=== PATIENT | female | born 1950 | race Caucasian/White ===

== ENCOUNTER 2016-11-15 17:28 | Inpatient (IN) ==
--- NOTE | 2016-11-15 19:29 | Emergency Department Note ---
Disposition Clinical Impression: Dehydration, Hyponatremia, Chest pain, Gastroparesis Disposition: Admitted As Inpatient Condition: Good Time of Disposition: 22:22 Nausea/Vomiting/Diarrhea HPI - General Chief complaint: ED Nausea/Vomiting/Diarrhea Stated complaint: Gastrointestinal issues Time Seen by Provider: 11/15/16 19:08 Source: patient Limitations: no limitations Nursing Notes Reviewed: Yes Vital Signs Reviewed: Yes - History of Present Illness HPI Narrative: 66-year-old female with history of idiopathic gastroparesis presents with chief complaint of nausea and vomiting 3 days. Patient says she has a gastric stimulator and the battery is and this happened a few weeks ago. Stimulator was put by Dr. Navarro at [facility]. Patient says she has an appointment on November 20 however she has not been able to control her nausea and vomiting with Zofran and Marinol. Because of this she presented to the ER. She denies any fevers or chills. She denies any metastasis. Patient states she has chest pain of 2 days that is tight/squeezing in nature comes and goes and associated with the right arm pain with the pain radiating to the right jaw and associated with diaphoresis. Furthermore she denies any abdominal pain, diarrhea, constipation. She has not eaten anything in 3 days. - Related Data Home Medications Medication Instructions Recorded Confirmed Amitriptyline [Elavil] 10 mg PO DAILY 11/15/16 11/15/16 Amlodipine Besylate 10 mg PO DAILY 11/15/16 11/15/16 Atorvastatin Calcium [Lipitor] 20 mg PO HS 11/15/16 11/15/16 CarBAMazepine [Tegretol Xr] 400 mg PO HS 11/15/16 11/15/16 Chlorthalidone 25 mg PO DAILY 11/15/16 11/15/16 ClonazePAM [Klonopin] 4 mg PO HS 11/15/16 11/15/16 Dronabinol [Marinol] 5 - 10 mg PO BID PRN 11/15/16 11/15/16 Escitalopram [Lexapro] 20 mg PO DAILY 11/15/16 11/15/16 HydrOXYzine Pamoate [Vistaril] 50 mg PO BID PRN 11/15/16 11/15/16 Loratadine [Claritin] 10 mg PO DAILY 11/15/16 11/15/16 Modafinil [Provigil] 200 mg PO BID 11/15/16 11/15/16 Ondansetron [Zofran ODT] 8 mg SL TID PRN 11/15/16 11/15/16 Oxycodone HCl/Acetaminophen 1 each PO BID PRN 11/15/16 11/15/16 [Percocet 5-325 mg Tablet] Pantoprazole Sodium [Protonix] 40 mg PO BID 11/15/16 11/15/16 Quetiapine Fumarate [Seroquel] 200 mg PO HS 11/15/16 11/15/16 Ropinirole [Requip] 2 mg PO HS 11/15/16 11/15/16 Sertraline [Zoloft] 50 mg PO DAILY 11/15/16 11/15/16 Allergies Allergy/AdvReac Type Severity Reaction Status Date / Time prochlorperazine Allergy Anaphylaxis Verified 03/26/15 09:06 acetaminophen [From Vicodin] AdvReac Nausea Verified 03/26/15 08:55 hydrochlorothiazide AdvReac Rash Verified 03/26/15 08:55 hydrocodone [From Vicodin] AdvReac Nausea Verified 03/26/15 08:55 Hydromorphone [From Dilaudid] AdvReac Nausea Verified 03/26/15 08:55 metoclopramide [From Reglan] AdvReac See Verified 03/26/15 09:06 Comments promethazine [From Phenergan] AdvReac See Verified 03/26/15 09:06 Comments Review of Systems: ROS: Constitutional: Denies fevers chills HEENT: Denies blurry vision, reports sore throat and headache Heart: First chest pain and diaphoresis. Denies syncope palpitations Lungs: Denies shortness of breath, cough Abdomen: Denies abdominal pain, reports nausea and vomiting : Denies dysuria, Extremeties: Denies leg cramps, swelling Neuro: Denies numbness and tingling All systems ED: reviewed and negative except as stated. Past Medical History - Past Medical History Medical history: Reports: hyperlipidemia, hypertension, other Surgical history: Reports: breast surgery, cholecystectomy, hysterectomy, other Psychiatric history: Reports: no psych history - Social History Smoking Status: Never smoker Smokeless Tobacco Status: No Alcohol use: Reports: none Drug use: Reports: none Physical Exam General: Alert and oriented to place, time, self HEENT: Head normocephalic, atraumatic, EOMI, PERRLA, neck without lymphadenopathy, absent JVD, moist mucous membranes Heart: Regular rate and rhythm no murmur, Lungs: Clear to auscultation bilaterally Abdomen: Soft old left upper quadrant tenderness with positive bowel sounds, negative Ladd's negative Rovsing's, negative rebound tenderness, negative peritoneal signs. Extremities: Normal capillary refill, absent pedal edema Vascular: Pedal and radial pulses 2/4 Psych: Normal mood and affect - General Limitations: no limitations General appearance: alert Course Course Narrative: Obtain CBC, BMP, troponin, EKG, chest x-ray, urinalysis. On physical exam patient had mild tenderness to palpation left upper quadrant. She denies any radiation of the pain. - Reevaluation(s) Reevaluation #1: CBC within normal limits, chest x-ray troponin and EKG within normal limits. EKG shows sinus bradycardia with no ST-T wave changes. Patient's sodium is 123 which is decreasing her baseline 134. We will start patient on normal saline at 125 an hour. Patient is okay to be admitted to the hospitalist service. Time: 21:07 Reevaluation #2: Dr. Prince except the patient. Time: 21:42 Vital Signs Temperature 98.5 F 11/15/16 17:40 Pulse Rate 69 11/15/16 17:40 Respiratory Rate 14 11/15/16 17:40 Blood Pressure 148/93 11/15/16 17:40 O2 Sat by Pulse Oximetry 94 11/15/16 17:40 Temperature 98.5 F 11/15/16 17:40 Pulse Rate 56 11/15/16 21:30 Respiratory Rate 20 11/15/16 21:59 Blood Pressure 154/82 11/15/16 21:59 O2 Sat by Pulse Oximetry 94 11/15/16 21:30 Oxygen Delivery Oxygen Delivery Room Air Nausea/Vomiting/Diarrhea - [facility] Narrative Medical decision making narrative: patient with history of idiopathic gastroparesis who has gastric stimulator has not been working due to battery. She has been having since her nausea and vomiting for 3 days. Her BMP shows hyponatremia, she also had squeezing chest pain that has been worked up. EKG within normal limits, troponin negative, chest x-ray negative. She will need to be worked up further for her chest pain. Patient is okay to be admitted for further fluid resuscitation and workup for chest pain rule out. - Medical Records Medical records reviewed: Yes I reviewed the patient's medical records. - Lab Data Lab results reviewed: Yes I reviewed the patient's lab results. Result diagrams: 11/15/16 20:17 11/15/16 20:17 Lab Results 11/15/16 11/15/16 11/15/16 Range/Units 20:17 20:17 20:17 WBC 8.2 (4.3-11.1) K/mcL RBC 4.39 (3.82-4.97) M/mcL Hgb 12.9 (11.5-15.4) g/dL Hct 36.6 (35.3-44.9) % MCV 83.4 (83.0-100.0) fL MCH 29.4 (28.0-33.3) pg MCHC 35.2 (31.6-35.5) g/dL RDW 12.2 (11.5-14.5) % Plt Count 246 (140-400) K/mcL MPV 9.3 L (9.4-12.4) fL Immature Gran % 0.5 (0-4) % Seg Neutrophils % 66.1 % Lymphocytes % 22.8 % Monocytes % 8.8 % Eosinophils % 1.6 % Basophils % 0.2 % Neutrophils # 5.4 (1.6-8.9) K/mcL Lymphocytes # 1.9 (0.6-4.6) K/mcL Monocytes # 0.7 (0.0-1.3) K/mcL Eosinophils # 0.1 (0.0-0.6) K/mcL Basophils # 0.0 (0.0-0.2) K/mcL Sodium 123 L (136-145) mEq/L Potassium 3.2 L (3.5-4.5) mEq/L Chloride 85 L (98-109) mEq/L Carbon Dioxide 28 (19-29) mEq/L BUN 10 (7-20) mg/dL Creatinine 0.63 (0.57-1.11) mg/dL Est GFR ( Amer) > 60 (> 60) Est GFR (Non-Af Amer) > 60 (> 60) BUN/Creatinine Ratio 16 (6-26) Glucose 98 (70-99) mg/dL Calculated Osmolality 255 L (280-300) Calcium 9.1 (8.6-10.8) mg/dL Troponin I 0.00 (0-0.03) ng/mL - Radiology Data Radiology results reviewed: Yes I reviewed the patient's radiology results. - EKG Data EKG attestation: Yes I reviewed and interpreted this EKG. EKG results narrative: Sinus rhythm with a rate of [address]-T wave changes. Normal sinus rhythm. Attestation Statement - Attestation Attestation: I examined this patient and my medical decision-making was reviewed with the GENERATOR OPERATOR/PA/Advanced Practice Nurse/Resident Physician. I agree with the documented findings, disposition and treatment plan as described except to the extent set forth below. I had face to face time with the patient. 66-year-old with gastroparesis who has a gastric stimulator which has a battery. She is actually scheduled to have that battery replaced in [place] by her doctor. Vomiting not able keep anything down. Physical examination her abdomen is soft no localizing surgical findings. Laboratory her sodium is somewhat low. IV was established when admit patient IV Zofran and fluids.
[2016-11-15] MEDS ORDERED: Ondansetron 4 MG/2 ML VIAL IV ONE ×2 (19:38→21:30)
[2016-11-15 20:25] LABS: Basophils % 0.2 %; Eosinophils # 0.1 K/mcL (0.0-0.6); Eosinophils % 1.6 %; Hematocrit 36.6 % (35.3-44.9); Hemoglobin 12.9 g/dL (11.5-15.4); Immature Granulocytes % 0.5 % (0-4); Lymphocytes # 1.9 K/mcL (0.6-4.6); Lymphocytes % 22.8 %; Mean Corpuscular HGB Conc 35.2 g/dL (31.6-35.5); Mean Corpuscular Hemoglobin 29.4 pg (28.0-33.3); Mean Corpuscular Volume 83.4 fL (83.0-100.0); Mean Platelet Volume 9.3 fL (9.4-12.4); Monocytes # 0.7 K/mcL (0.0-1.3); Monocytes % 8.8 %; Neutrophils # 5.4 K/mcL (1.6-8.9); Platelet Count 246 K/mcL (140-400); Red Blood Count 4.39 M/mcL (3.82-4.97); Red Cell Distribution Width 12.2 % (11.5-14.5); Segmented Neutrophils % 66.1 %
[2016-11-15 20:37] LABS: BUN/Creatinine Ratio 16 (6-26); Blood Urea Nitrogen 10 mg/dL (7-20); Calcium 9.1 mg/dL (8.6-10.8); Carbon Dioxide 28 mEq/L (19-29); Chloride 85 mEq/L (98-109); Glucose 98 mg/dL (70-99); Osmolality,Calculated 255 (280-300); Potassium 3.2 mEq/L (3.5-4.5); Sodium 123 mEq/L (136-145); eGFR For African Americans > 60 (> 60); eGFR For Non-African Americans > 60 (> 60)
[2016-11-15] MEDS: 0.9 % Sodium Chloride 1,000 ML IVC SCH (21:52)
[2016-11-15] MEDS ORDERED: Naloxone 0.4 MG/ML INJ IVP PRN (23:05)
[2016-11-15] MEDS ORDERED: hydrOXYzine pamoate 25 MG CAPSULE PO PRN (23:55)
--- NOTE | 2016-11-15 23:55 | Internal Med History&Physical ---
Date of Encounter: 11/15/16 Time of Encounter: 23:20 Assessment and Plan (1) Gastroparesis Current visit: Yes Status: Acute she has a history of idiopathic gastroparesis on a stimulator and since her stimulator has been non functioning her symptoms have been uncontrollable requiring her to come in today, we will admit for symptom control (2) Hyponatremia Current visit: Yes Status: Acute from likely related to her dehydration, we will hydrate and follow BMP (3) Hypokalemia Current visit: Yes Status: Acute most likely from GI loss and poor oral intake, we will replace and follow BMP (4) HTN (hypertension) Current visit: Yes Status: Chronic Hx of HTN on amlodipine and chlorthalidone, we will continue these with BP monitoring Qualifiers: Hypertension type: essential hypertension Qualified Code(s): I10 - Essential (primary) hypertension (5) Asthma Current visit: Yes Status: Chronic stable, will do PRN nebs Qualifiers: Asthma severity: mild intermittent Asthma complication type: uncomplicated Qualified Code(s): J45.20 - Mild intermittent asthma, uncomplicated Internal Medicine - H&P: HPI Chief complaint: nausea and vomiting Admitted From: Emergency Dept Plans for Post Hospital Care: Home History of present illness: Ms. Carrasco is a 66 year old female with a history of idiopathic gastroparesis diagnosed in 2004 who has been using a gastric stimulator for the past 5 years comes in with nausea, vomiting. She was reportedly well until about 4 days prior when she began to have the aforementioned symptoms, she vomits several times a day, vomitus is sometimes clear, contains food previously eaten, sometimes green and yellow. No blood has been seen so far. She reports that she has been unable to keep any food down. On the first day of these symptoms she had a bout of loose stools but has had none since. She was informed that the battery of the stimulator was not working and that the next opening she had was in May. She denies abdominal pain, she came in today because her symptoms were unbearable and not responding to the marinol and zofran she had at home. No fever, chills, urinary symptoms or any sign of concurrent infectious process noted. Past Med Surg Social Fam HX - Past Medical History Medical history: asthma, hyperlipidemia, hypertension, other Psychiatric history: no psych history - Past Surgical History Surgical History: breast surgery, cholecystectomy, hysterectomy, knee replacement (left), other (right breast lumpectomy, carpal tunnel release) - Social History Smoking Status: Never smoker Smokeless Tobacco Status: No Alcohol use: none Drug use: none Current living situation: Home - Independent Activity Level: Independent ambulation - Family History Mother Hx Family Cancer: Yes (BREAST CA) Hx Family Endocrine Disorder: Yes (DM) - Additional Family History Additional family history: father is , he had an aneurysm, mother is also and she had DM, COPD, breast cancer, Internal Medicine - H&P: Meds Amitriptyline [Elavil] 10 mg PO DAILY 11/15/16 [History] Amlodipine Besylate 10 mg PO DAILY 11/15/16 [History] Atorvastatin Calcium [Lipitor] 20 mg PO HS 11/15/16 [History] CarBAMazepine [Tegretol Xr] 400 mg PO HS 11/15/16 [History] Chlorthalidone 25 mg PO DAILY 11/15/16 [History] ClonazePAM [Klonopin] 4 mg PO HS 11/15/16 [History] Dronabinol [Marinol] 5 - 10 mg PO BID PRN 11/15/16 [History] Escitalopram [Lexapro] 20 mg PO DAILY 11/15/16 [History] HydrOXYzine Pamoate [Vistaril] 50 mg PO BID PRN 11/15/16 [History] Loratadine [Claritin] 10 mg PO DAILY 11/15/16 [History] Modafinil [Provigil] 200 mg PO BID 11/15/16 [History] Ondansetron [Zofran ODT] 8 mg SL TID PRN 11/15/16 [History] Oxycodone HCl/Acetaminophen [Percocet 5-325 mg Tablet] 1 each PO BID PRN [History] Pantoprazole Sodium [Protonix] 40 mg PO BID 11/15/16 [History] Quetiapine Fumarate [Seroquel] 200 mg PO HS 11/15/16 [History] Ropinirole [Requip] 2 mg PO HS 11/15/16 [History] Sertraline [Zoloft] 50 mg PO DAILY 11/15/16 [History] Allergies prochlorperazine Allergy (Verified 03/26/15 09:06) Anaphylaxis acetaminophen [From Vicodin] Adverse Reaction (Verified 03/26/15 08:55) Nausea hydrochlorothiazide Adverse Reaction (Verified 03/26/15 08:55) Rash hydrocodone [From Vicodin] Adverse Reaction (Verified 03/26/15 08:55) Nausea Hydromorphone [From Dilaudid] Adverse Reaction (Verified 03/26/15 08:55) Nausea metoclopramide [From Reglan] Adverse Reaction (Verified 03/26/15 09:06) See Comments shakey promethazine [From Phenergan] Adverse Reaction (Verified 03/26/15 09:06) See Comments restless legs All Systems PM: A 10-system review of systems was performed and is negative for pertinent findings except as documented above in the HPI. - Constitutional Vitals: Temp Pulse Resp BP Pulse Ox 97.9 F 57 16 145/85 95 11/15/16 22:45 11/15/16 22:45 11/15/16 22:45 11/15/16 22:45 11/15/16 22:45 PHYSICAL EXAMINATION: GENERAL: Adult female, lying in bed wt a bowl by her side, Alert, not in acute distress, HEENT: NC/AT, EOMI, PERRLA, anicteric sclera, normal conjunctiva, supple, clear nares, moist mucous membranes, clear oropharynx, central uvula RESP: no chest wall tenderness with palpation, lungs are clear to auscultation bilaterally, good AE bilaterally, No crackles or wheeze CARDIO: Normal hearts sounds; S1 and 2, RRR with no murmurs, no JVD, no ankle edema GI: Soft, full, no tenderness, no organomegaly felt, normal bowel sounds heard MUSCULOSKELETAL: grossly normal movements bilaterally, no deformities noted, no calf tenderness EXTREMITIES: No clubbing, cyanosis or edema, NEUROLOGIC: CN 2-12 intact grossly. No motor/sensory deficit appreciated, PSYCHIATRY: AAO x 3. Mood is fair, exhibits appropriate judgement SKIN: no skin rash or ulcers noted Internal Med - H&P Results - Labs CBC & Chem 7: 11/15/16 20:17 11/16/16 04:06 - EKG Data -: EKG Interpreted by Myself EKG shows normal: sinus rhythm Rate: normal - EKG Data Prior EKG available for review: yes When compared to previous EKG: there is no significant change - Diagnostic Studies Chest x-ray Status: image reviewed by me
[2016-11-16] MEDS ORDERED: Potassium Chloride 40 MEQ, Lidocaine 1% 2 ML in D5% in Water 500 ML IVPB ONE (00:01)
[2016-11-16] MEDS: clonazePAM 1 MG TABLET PO SCH ×2 (01:37→20:24)
[2016-11-16] MEDS: rOPINIRole 1 MG TABLET PO SCH ×2 (01:38→20:24)
[2016-11-16] MEDS: Ondansetron 4 MG/2 ML VIAL IVP PRN ×4 (01:45→20:24)
[2016-11-16 05:03] LABS: BUN/Creatinine Ratio 12 (6-26); Blood Urea Nitrogen 7 mg/dL (7-20); Calcium 8.4 mg/dL (8.6-10.8); Carbon Dioxide 27 mEq/L (19-29); Chloride 86 mEq/L (98-109); Glucose 107 mg/dL (70-99); Magnesium 1.6 mg/dL (1.6-2.6); Osmolality,Calculated 254 (280-300); Phosphorous 2.4 mg/dL (2.3-4.7); Potassium 3.4 mEq/L (3.5-4.5); Sodium 123 mEq/L (136-145); eGFR For African Americans > 60 (> 60); eGFR For Non-African Americans > 60 (> 60)
[2016-11-16] MEDS ORDERED: Albuterol 2.5 MG/3 ML NEBULIZER IH PRN (05:51)
[2016-11-16] MEDS: *HR* Heparin 5,000 UNIT/ML VIAL SQ SCH ×3 (07:57→20:24)
[2016-11-16] MEDS: *HR* OxyCODONE/APAP 5/325 TABLET PO PRN ×2 (07:57→20:38)
[2016-11-16] MEDS: amLODIPine 5 MG TABLET PO SCH (07:58)
[2016-11-16] MEDS: Loratadine 10 MG TABLET PO SCH (07:58)
--- NOTE | 2016-11-16 09:52 | Event Note ---
Date of Encounter: 11/16/16 Time of Encounter: 09:40 Seen and evaluated at bedside 66 Y/O F with HTN, Asthma, HLD, Idiopathic gastroparesis She is admitted to observation for symptom control of her gastroparesis She has a stimulator which may be malfunctioning as patient has been having recurrent nausea and vomiting not responding to her po zofran at home She denies any new complains She has had one episode of nausea/vomiting since admission which responded to Zofran. Physical Exam Gen: No apparent distress Neuro: AAOX3, speaks full sentences, moves all limbs spontaneously, no focal deficits HEENT: No sclera icterus, mucus membrane is moist Chest: CTAB Heart: Normal hearts sounds; S1 and 2, RRR with no murmurs, no JVD, no ankle edema GI: Soft, full, no tenderness, no organomegaly felt, normal bowel sounds heard Ext: No clubbing, cyanosis or edema, Integument: No rash Labs and Imaging reviewed CBC WNL Chem: Hypo-osmolar hyponatremia, Na 123 (unchanged since admission), K 3.4 ( repleted, 3.2 on admission), Cr WNL. Trop negative X2 CXR: Clear, no acute processes A/P Nausea and vomiting secondary to gastroparesis with multiple electrolyte abnormalities, continue IVF hydration, repeat Chem at p.m, and tmrw a.m. Check TSH and Lipid panel for hyponatremia Continue home meds Consider GI consult if persistence of symptoms DUonebs prn, no evidence of asthma exacerbation Plan of care discussed with the patient, verbalized understanding
[2016-11-16] MEDS: 0.9 % Sodium Chloride 1,000 ML IVC SCH ×3 (11:03→20:27)
[2016-11-16 13:18] LABS: BUN/Creatinine Ratio 12 (6-26); Blood Urea Nitrogen 7 mg/dL (7-20); Calcium 8.8 mg/dL (8.6-10.8); Carbon Dioxide 29 mEq/L (19-29); Chloride 88 mEq/L (98-109); Chol/HDL Ratio 4.3 (0-4.9); Cholesterol 304 mg/dL (< 200); Glucose 90 mg/dL (70-99); HDL Cholesterol 70 mg/dL (40-59); LDL Cholesterol,Calculated 206 mg/dL (0-99); Osmolality,Calculated 260 (280-300); Potassium 3.2 mEq/L (3.5-4.5); Sodium 126 mEq/L (136-145); Triglycerides 142 mg/dL (< 150); eGFR For African Americans > 60 (> 60); eGFR For Non-African Americans > 60 (> 60)
[2016-11-16 13:38] LABS: Thyroid Stimulating Hormone 1.841 mcIU/mL (0.350-4.840)
[2016-11-16] MEDS: Acetaminophen 325 MG TABLET PO PRN (16:01)
--- NOTE | 2016-11-16 19:30 | Electrocardiograph Report ---
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
[2016-11-16] MEDS: CarBAMazepine XR (12 hr) 100 MG TAB PO SCH (20:24)
[2016-11-17] MEDS: 0.9 % Sodium Chloride 1,000 ML IVC SCH ×3 (04:37→19:54)
[2016-11-17] MEDS: Acetaminophen 325 MG TABLET PO PRN ×2 (04:37→11:49)
[2016-11-17] MEDS: *HR* Heparin 5,000 UNIT/ML VIAL SQ SCH ×3 (04:38→21:12)
[2016-11-17 05:27] LABS: BUN/Creatinine Ratio 8 (6-26); Blood Urea Nitrogen 5 mg/dL (7-20); Calcium 8.1 mg/dL (8.6-10.8); Carbon Dioxide 29 mEq/L (19-29); Chloride 94 mEq/L (98-109); Glucose 103 mg/dL (70-99); Osmolality,Calculated 270 (280-300); Sodium 131 mEq/L (136-145); eGFR For African Americans > 60 (> 60); eGFR For Non-African Americans > 60 (> 60)
[2016-11-17] MEDS: Ondansetron 4 MG/2 ML VIAL IVP PRN ×2 (06:42→16:47)
[2016-11-17] MEDS: amLODIPine 5 MG TABLET PO SCH (08:01)
[2016-11-17] MEDS: Loratadine 10 MG TABLET PO SCH (08:02)
--- NOTE | 2016-11-17 19:23 | Internal Med Progress Note ---
Date of Encounter: 11/17/16 Time of Encounter: 10:00 - Assessment and plan (1) Dehydration Current Visit: Yes Status: Acute Assessment and plan: Continue IV fluid. Follow-up BMP. (2) Chest pain Current Visit: Yes Status: Acute Assessment and plan: Agent to comply mild chest pain on left-sided chest wall. With tenderness on palpation. Consider skelenomuscular pain Qualifiers: Chest pain type: unspecified Qualified Code(s): R07.9 - Chest pain, unspecified (3) Gastroparesis Current Visit: Yes Status: Acute Assessment and plan: Will continue dietary modification, patient is on gastric stimulator. Advance diet gradually. (4) HTN (hypertension) Current Visit: Yes Status: Chronic Assessment and plan: Continue home medication Qualifiers: Hypertension type: essential hypertension Qualified Code(s): I10 - Essential (primary) hypertension (5) Asthma Current Visit: Yes Status: Chronic Qualifiers: Asthma severity: mild intermittent Asthma complication type: uncomplicated Qualified Code(s): J45.20 - Mild intermittent asthma, uncomplicated (6) Hypokalemia Current Visit: Yes Status: Acute Assessment and plan: Give potassium supplement (7) DVT prophylaxis Current Visit: Yes Status: Acute Assessment and plan: Heparin subcutaneously - Time Spent With Patient 25 - 35 minutes - Subjective Interval history: Patient is a 66-year-old female admitted for nausea and vomiting. Her past medical history is significant for gastroparesis on gastric stimulator. Hyperlipidemia and hypertension. I saw and examined the patient. She is awake alert, oriented 3. Still nauseous but no vomiting. Will advance diet to soft diet. Continue monitoring patient. Patient had bowel movement and can pass gas. - Constitutional Vitals: Temp Pulse Resp BP Pulse Ox 97.8 F 66 18 153/89 95 11/17/16 18:47 11/17/16 18:47 11/17/16 18:47 11/17/16 18:47 11/17/16 18:47 General appearance: Present: A&O X 3, no acute distress, answers questions appropriately - Head Head exam: Present: atraumatic, normocephalic - Eye Eye exam: Present: PERRL, conjuntiva pink, sclera anicteric Pupils: Present: PERRL - Neck Neck exam general surgery: Present: supple, trachea midline. Absent: lymphadenopathy - Respiratory Respiratory exam: Present: CTAB. Absent: accessory muscle use, rales, rhonchi, wheezes - Cardiovascular Cardiovascular exam: Present: RRR, +S1, +S2. Absent: diastolic murmur, gallop, rubs, systolic murmur - GI/Abdominal GI/Abdominal exam: Present: normal bowel sounds, soft, no peritoneal signs. Absent: distended, tenderness - Extremities Exam Extremities exam: Present: warm, radial pulses palpable and symetrical. Absent : calf tenderness, cyanotic, pedal edema - Neurological Exam Neurological exam: Present: CN II-XII intact, oriented X3, no focal deficits. Absent: pronater drift, facial droop, speech deficit - Skin Skin exam: Present: dry, intact Internal Medicine: Result - Labs CBC & Chem 7: 11/15/16 20:17 11/17/16 04:16 Labs: BMP 11/17/16 04:16 Sodium 131 L Potassium 3.0 L Chloride 94 L Carbon Dioxide 29 BUN 5 L Creatinine 0.63 Glucose 103 H Calcium 8.1 L Consult Discharge Plan - Plan Referrals: Wilton Marcum MD [Primary Care Provider] -
[2016-11-17] MEDS: rOPINIRole 1 MG TABLET PO SCH (21:09)
[2016-11-17] MEDS: *HR* OxyCODONE/APAP 5/325 TABLET PO PRN (21:09)
[2016-11-17] MEDS: clonazePAM 1 MG TABLET PO SCH (21:10)
[2016-11-17] MEDS: CarBAMazepine XR (12 hr) 100 MG TAB PO SCH (21:11)
[2016-11-18 04:25] LABS: Basophils % 0.8 %; Eosinophils # 0.2 K/mcL (0.0-0.6); Hematocrit 33.9 % (35.3-44.9); Hemoglobin 11.6 g/dL (11.5-15.4); Immature Granulocytes % 0.6 % (0-4); Lymphocytes % 37.5 %; Mean Corpuscular HGB Conc 34.2 g/dL (31.6-35.5); Mean Corpuscular Hemoglobin 29.6 pg (28.0-33.3); Mean Corpuscular Volume 86.5 fL (83.0-100.0); Mean Platelet Volume 9.9 fL (9.4-12.4); Monocytes # 0.6 K/mcL (0.0-1.3); Monocytes % 10.5 %; Neutrophils # 2.5 K/mcL (1.6-8.9); Platelet Count 231 K/mcL (140-400); Red Blood Count 3.92 M/mcL (3.82-4.97); Red Cell Distribution Width 12.8 % (11.5-14.5); Segmented Neutrophils % 47.6 %
[2016-11-18 04:42] LABS: BUN/Creatinine Ratio 10 (6-26); Blood Urea Nitrogen 7 mg/dL (7-20); Calcium 8.7 mg/dL (8.6-10.8); Carbon Dioxide 29 mEq/L (19-29); Chloride 102 mEq/L (98-109); Glucose 111 mg/dL (70-99); Magnesium 1.9 mg/dL (1.6-2.6); Osmolality,Calculated 281 (280-300); Potassium 3.8 mEq/L (3.5-4.5); Sodium 136 mEq/L (136-145); eGFR For African Americans > 60 (> 60); eGFR For Non-African Americans > 60 (> 60)
[2016-11-18] MEDS: *HR* Heparin 5,000 UNIT/ML VIAL SQ SCH ×3 (06:05→23:11)
[2016-11-18] MEDS: 0.9 % Sodium Chloride 1,000 ML IVC SCH ×2 (06:06→18:58)
[2016-11-18] MEDS: Ondansetron 4 MG/2 ML VIAL IVP PRN ×2 (06:07→14:13)
[2016-11-18] MEDS: Acetaminophen 325 MG TABLET PO PRN (06:16)
[2016-11-18] MEDS: amLODIPine 5 MG TABLET PO SCH (08:32)
[2016-11-18] MEDS: Loratadine 10 MG TABLET PO SCH (08:36)
[2016-11-18] MEDS: *HR* OxyCODONE/APAP 5/325 TABLET PO PRN ×2 (14:14→20:23)
--- NOTE | 2016-11-18 15:06 | Internal Med Progress Note ---
Date of Encounter: 11/18/16 Time of Encounter: 10:00 - Assessment and plan (1) Dehydration Current Visit: Yes Status: Acute Assessment and plan: Continue IV fluid. Follow-up BMP. (2) Chest pain Current Visit: Yes Status: Acute Assessment and plan: Pt c/o mild chest pain on left-sided chest wall. With tenderness on palpation. Consider skelenomuscular pain. CTA shows no PE. EKG unremarkable. Will check 3 sets of troponin. Qualifiers: Chest pain type: unspecified Qualified Code(s): R07.9 - Chest pain, unspecified (3) Gastroparesis Current Visit: Yes Status: Acute Assessment and plan: Will continue dietary modification, patient is on gastric stimulator. Advance diet gradually. (4) HTN (hypertension) Current Visit: Yes Status: Chronic Assessment and plan: Continue home medication Qualifiers: Hypertension type: essential hypertension Qualified Code(s): I10 - Essential (primary) hypertension (5) Asthma Current Visit: Yes Status: Chronic Assessment and plan: Stable, continue home medications Qualifiers: Asthma severity: mild intermittent Asthma complication type: uncomplicated Qualified Code(s): J45.20 - Mild intermittent asthma, uncomplicated (6) Hypokalemia Current Visit: Yes Status: Acute Assessment and plan: Improved after potassium supplement (7) DVT prophylaxis Current Visit: Yes Status: Acute Assessment and plan: Heparin subcutaneously - Subjective Interval history: Patient is a 66-year-old female admitted for nausea and vomiting. Her past medical history is significant for gastroparesis on gastric stimulator. Hyperlipidemia and hypertension. I saw and examined the patient. She is awake alert, oriented 3. Still nauseous but no vomiting, eat much of the lunch today. Patient complaint chest pain, pain started from yesterday, constant, on the left chest, worsening on deep breath. Yesterday we did a EKG, which is unremarkable. Since the pain is persistent, further workup has been done. D-dimer positive, CTA was placed. CT result shows no PE. Will track 3 sets of troponin. But most likely the pain is muscular in origin. Will give patient pain medication for symptom control. - Constitutional Vitals: Temp Pulse Resp BP Pulse Ox 97.5 F L 62 20 152/87 96 11/18/16 11:35 11/18/16 11:35 11/18/16 11:35 11/18/16 11:35 11/18/16 11:35 General appearance: Present: A&O X 3, no acute distress, answers questions appropriately - Head Head exam: Present: atraumatic, normocephalic - Eye Eye exam: Present: PERRL, conjuntiva pink, sclera anicteric Pupils: Present: PERRL - Neck Neck exam general surgery: Present: supple, trachea midline. Absent: lymphadenopathy - Respiratory Respiratory exam: Present: chest wall tenderness, CTAB. Absent: accessory muscle use, rales, rhonchi, wheezes - Cardiovascular Cardiovascular exam: Present: RRR, +S1, +S2. Absent: diastolic murmur, gallop, rubs, systolic murmur - GI/Abdominal GI/Abdominal exam: Present: normal bowel sounds, soft, no peritoneal signs. Absent: distended, tenderness - Extremities Exam Extremities exam: Present: warm, radial pulses palpable and symetrical. Absent : calf tenderness, cyanotic, pedal edema - Neurological Exam Neurological exam: Present: CN II-XII intact, oriented X3, no focal deficits. Absent: pronater drift, facial droop, speech deficit - Skin Skin exam: Present: dry, intact Internal Medicine: Result - Labs CBC & Chem 7: 11/18/16 04:01 11/18/16 04:01 Labs: Short CBC 11/18/16 Range/Units 04:01 WBC 5.3 (4.3-11.1) K/mcL Hgb 11.6 (11.5-15.4) g/dL Hct 33.9 L (35.3-44.9) % Plt Count 231 (140-400) K/mcL Neutrophils # 2.5 (1.6-8.9) K/mcL BMP 11/18/16 04:01 Sodium 136 Potassium 3.8 Chloride 102 Carbon Dioxide 29 BUN 7 Creatinine 0.70 Glucose 111 H Calcium 8.7 Cardiac Enzymes 11/18/16 Range/Units 09:01 Troponin I 0.00 (0-0.03) ng/mL - ABG Interpretation ABG results: PT/INR, D-dimer D-Dimer 548 ng/mLFEU (0-500) H 11/18/16 09:01 - Impressions Impressions Chest X-Ray 11/18/16 08:49 IMPRESSION: No acute process. D/ / Javier Cantor MD / Javier Cantor MD Interpreting Provider: Javier Cantor MD Chest CTA 11/18/16 10:27 IMPRESSION: 1. No acute pulmonary artery embolism. 2. Cardiomegaly with minimal effusions and basilar atelectasis. D/ / 11/18/2016 11:37:16 Rob Holcomb MD / moose Interpreting Provider: Rob Holcomb MD Consult Discharge Plan - Plan Referrals: Wilton Marcum MD [Primary Care Provider] -
[2016-11-18] MEDS: clonazePAM 1 MG TABLET PO SCH (20:22)
[2016-11-18] MEDS: rOPINIRole 1 MG TABLET PO SCH (20:23)
[2016-11-18] MEDS: CarBAMazepine XR (12 hr) 100 MG TAB PO SCH (20:28)
[2016-11-19] MEDS: Pantoprazole 40 MG VIAL IVP SCH ×2 (00:10→05:32)
[2016-11-19] MEDS: *HR* OxyCODONE/APAP 5/325 TABLET PO PRN ×4 (03:00→21:26)
[2016-11-19 03:24] LABS: Basophils % 0.7 %; Eosinophils # 0.2 K/mcL (0.0-0.6); Eosinophils % 2.8 %; Hematocrit 34.1 % (35.3-44.9); Hemoglobin 11.6 g/dL (11.5-15.4); Immature Granulocytes % 0.8 % (0-4); Lymphocytes # 2.7 K/mcL (0.6-4.6); Lymphocytes % 45.2 %; Mean Corpuscular Hemoglobin 29.7 pg (28.0-33.3); Mean Corpuscular Volume 87.4 fL (83.0-100.0); Mean Platelet Volume 9.6 fL (9.4-12.4); Monocytes # 0.5 K/mcL (0.0-1.3); Monocytes % 8.8 %; Neutrophils # 2.5 K/mcL (1.6-8.9); Platelet Count 235 K/mcL (140-400); Red Cell Distribution Width 13.1 % (11.5-14.5); Segmented Neutrophils % 41.7 %
[2016-11-19 03:34] LABS: BUN/Creatinine Ratio 12 (6-26); Blood Urea Nitrogen 8 mg/dL (7-20); Calcium 8.8 mg/dL (8.6-10.8); Carbon Dioxide 25 mEq/L (19-29); Chloride 101 mEq/L (98-109); Glucose 89 mg/dL (70-99); Osmolality,Calculated 276 (280-300); Potassium 4.1 mEq/L (3.5-4.5); Sodium 134 mEq/L (136-145); eGFR For African Americans > 60 (> 60); eGFR For Non-African Americans > 60 (> 60)
[2016-11-19] MEDS: *HR* Heparin 5,000 UNIT/ML VIAL SQ SCH ×3 (05:31→21:27)
[2016-11-19] MEDS: Ondansetron 4 MG/2 ML VIAL IVP PRN ×3 (05:49→21:56)
[2016-11-19] MEDS: 0.9 % Sodium Chloride 1,000 ML IVC SCH (06:06)
[2016-11-19] MEDS: Loratadine 10 MG TABLET PO SCH (07:44)
[2016-11-19] MEDS: amLODIPine 5 MG TABLET PO SCH (07:45)
[2016-11-19] MEDS: Pantoprazole 40 MG in 0.9 % Sodium Chloride Mini Bag 100 ML IVC SCH ×3 (09:58→21:30)
--- NOTE | 2016-11-19 16:58 | Internal Med Progress Note ---
Date of Encounter: 11/19/16 Time of Encounter: 10:00 - Assessment and plan (1) Dehydration Current Visit: Yes Status: Acute Assessment and plan: Resolved. Patient eats well now. Discontinue IV fluid. (2) Chest pain Current Visit: Yes Status: Acute Assessment and plan: Most likely GERD as pt's pain improved after IV protonix. Will continue Protonix drip, elevate head of the bed, and educated the patient keep upright after eating. Qualifiers: Chest pain type: unspecified Qualified Code(s): R07.9 - Chest pain, unspecified (3) Gastroparesis Current Visit: Yes Status: Acute Assessment and plan: Will continue dietary modification, patient is on gastric stimulator. Advance diet gradually. (4) HTN (hypertension) Current Visit: Yes Status: Chronic Assessment and plan: Continue home medication Qualifiers: Hypertension type: essential hypertension Qualified Code(s): I10 - Essential (primary) hypertension (5) Asthma Current Visit: Yes Status: Chronic Assessment and plan: Stable, continue home medications Qualifiers: Asthma severity: mild intermittent Asthma complication type: uncomplicated Qualified Code(s): J45.20 - Mild intermittent asthma, uncomplicated (6) Hypokalemia Current Visit: Yes Status: Acute Assessment and plan: Improved after potassium supplement (7) DVT prophylaxis Current Visit: Yes Status: Acute Assessment and plan: Heparin subcutaneously - Subjective Interval history: Patient is a 66-year-old female admitted for nausea and vomiting. Her past medical history is significant for gastroparesis on gastric stimulator. Hyperlipidemia and hypertension. I saw and examined the patient. She is awake alert, oriented 3. Still complaint of chest pain, patient mentioned she has severe GERD and had similar chest pain before, respond to Protonix drip. Will try protonix drip treatment. Pt's vitals are stable. - Constitutional Vitals: Temp Pulse Resp BP Pulse Ox 98.2 F 67 16 131/84 95 11/19/16 15:23 11/19/16 15:23 11/19/16 15:23 11/19/16 15:23 11/19/16 15:23 General appearance: Present: A&O X 3, no acute distress, answers questions appropriately - Head Head exam: Present: atraumatic, normocephalic - Eye Eye exam: Present: PERRL, conjuntiva pink, sclera anicteric Pupils: Present: PERRL - Neck Neck exam general surgery: Present: supple, trachea midline. Absent: lymphadenopathy - Respiratory Respiratory exam: Present: CTAB. Absent: accessory muscle use, rales, rhonchi, wheezes - Cardiovascular Cardiovascular exam: Present: RRR, +S1, +S2. Absent: diastolic murmur, gallop, rubs, systolic murmur - GI/Abdominal GI/Abdominal exam: Present: normal bowel sounds, soft, no peritoneal signs. Absent: distended, tenderness - Extremities Exam Extremities exam: Present: warm, radial pulses palpable and symetrical. Absent : calf tenderness, cyanotic, pedal edema - Neurological Exam Neurological exam: Present: CN II-XII intact, oriented X3, no focal deficits. Absent: pronater drift, facial droop, speech deficit - Skin Skin exam: Present: dry, intact Internal Medicine: Result - Labs CBC & Chem 7: 11/19/16 03:13 11/19/16 03:13 Labs: Short CBC 11/19/16 Range/Units 03:13 WBC 6.0 (4.3-11.1) K/mcL Hgb 11.6 (11.5-15.4) g/dL Hct 34.1 L (35.3-44.9) % Plt Count 235 (140-400) K/mcL Neutrophils # 2.5 (1.6-8.9) K/mcL BMP 11/19/16 03:13 Sodium 134 L Potassium 4.1 Chloride 101 Carbon Dioxide 25 BUN 8 Creatinine 0.65 Glucose 89 Calcium 8.8 Cardiac Enzymes 11/18/16 Range/Units 20:16 Troponin I 0.00 (0-0.03) ng/mL - ABG Interpretation ABG results: PT/INR, D-dimer D-Dimer 548 ng/mLFEU (0-500) H 11/18/16 09:01 Consult Discharge Plan - Plan Referrals: Wilton Marcum MD [Primary Care Provider] -
[2016-11-19] MEDS: CarBAMazepine XR (12 hr) 100 MG TAB PO SCH (21:26)
[2016-11-19] MEDS: clonazePAM 1 MG TABLET PO SCH (21:26)
[2016-11-19] MEDS: rOPINIRole 1 MG TABLET PO SCH (21:27)
[2016-11-19] MEDS ORDERED: Pantoprazole 40 MG VIAL IVP SCH (22:29)
[2016-11-20] MEDS: Pantoprazole 40 MG in 0.9 % Sodium Chloride Mini Bag 100 ML IVC SCH ×3 (02:53→13:35)
[2016-11-20] MEDS: *HR* Heparin 5,000 UNIT/ML VIAL SQ SCH ×2 (06:33→14:28)
[2016-11-20] MEDS: *HR* OxyCODONE/APAP 5/325 TABLET PO PRN ×2 (06:58→13:35)
[2016-11-20] MEDS: Ondansetron 4 MG/2 ML VIAL IVP PRN ×2 (06:58→13:35)
[2016-11-20] MEDS: amLODIPine 5 MG TABLET PO SCH (08:16)
[2016-11-20] MEDS: Loratadine 10 MG TABLET PO SCH (08:16)
--- NOTE | 2016-11-20 09:02 | Electrocardiograph Report ---
[address] [address] Test Date: 2016-11-17 Pat Name: Avelina Carrasco Department: 113 Room: 3B36 Gender: F Call [facility] Contact [facility] Manager: : [id number] Requested By: Hermelinda Zamarripa Order Number: [id number] Reading MD: Ajay Seo MD Measurements Intervals [place] Rate: 66 P: 45 MS: 175 QRS: -6 QRSD: 89 T: -10 QT: 348 QTc: 361 Interpretive Statements SINUS RHYTHM BASELINE ARTIFACT Electronically Signed On 11-20-2016 9:00:44 EDT by Ajay Seo MD
[2016-11-20 14:56] VITALS: BP 133/83
--- NOTE | 2016-11-20 15:44 | Discharge Summary ---
Date of Encounter: 11/20/16 Time of Encounter: 15:00 - Discharge Diagnosis (1) Dehydration Priority: Primary Status: Acute (2) Chest pain Priority: Primary Status: Acute Qualifiers: Chest pain type: unspecified Qualified Code(s): R07.9 - Chest pain, unspecified (3) Gastroparesis Priority: Primary Status: Acute (4) HTN (hypertension) Priority: Secondary Status: Chronic Qualifiers: Hypertension type: essential hypertension Qualified Code(s): I10 - Essential (primary) hypertension (5) Asthma Priority: Secondary Status: Chronic Qualifiers: Asthma severity: mild intermittent Asthma complication type: uncomplicated Qualified Code(s): J45.20 - Mild intermittent asthma, uncomplicated (6) Hypokalemia Priority: Secondary Status: Acute (7) DVT prophylaxis Priority: Secondary Status: Acute - Discharge Medications Home Medications: Amitriptyline [Elavil] 10 mg PO DAILY 11/15/16 [History] Amlodipine Besylate 10 mg PO DAILY 11/15/16 [History] Atorvastatin Calcium [Lipitor] 20 mg PO HS 11/15/16 [History] CarBAMazepine [Tegretol Xr] 400 mg PO HS 11/15/16 [History] Chlorthalidone 25 mg PO DAILY 11/15/16 [History] ClonazePAM [Klonopin] 4 mg PO HS 11/15/16 [History] Dronabinol [Marinol] 5 - 10 mg PO BID PRN 11/15/16 [History] Escitalopram [Lexapro] 20 mg PO DAILY 11/15/16 [History] HydrOXYzine Pamoate [Vistaril] 50 mg PO BID PRN 11/15/16 [History] Loratadine [Claritin] 10 mg PO DAILY 11/15/16 [History] Modafinil [Provigil] 200 mg PO BID 11/15/16 [History] Ondansetron [Zofran ODT] 8 mg SL TID PRN 11/15/16 [History] Oxycodone HCl/Acetaminophen [Percocet 5-325 mg Tablet] 1 each PO BID PRN [History] Pantoprazole Sodium [Protonix] 40 mg PO BID 11/15/16 [History] Quetiapine Fumarate [Seroquel] 200 mg PO HS 11/15/16 [History] Ropinirole [Requip] 2 mg PO HS 11/15/16 [History] Sertraline [Zoloft] 50 mg PO DAILY 11/15/16 [History] Allergies/Adverse Reactions: Allergies prochlorperazine Allergy (Verified 03/26/15 09:06) Anaphylaxis acetaminophen [From Vicodin] Adverse Reaction (Verified 03/26/15 08:55) Nausea hydrochlorothiazide Adverse Reaction (Verified 03/26/15 08:55) Rash hydrocodone [From Vicodin] Adverse Reaction (Verified 03/26/15 08:55) Nausea Hydromorphone [From Dilaudid] Adverse Reaction (Verified 03/26/15 08:55) Nausea metoclopramide [From Reglan] Adverse Reaction (Verified 03/26/15 09:06) See Comments shakey promethazine [From Phenergan] Adverse Reaction (Verified 03/26/15 09:06) See Comments restless legs Procedures/tests Complete & Pending: Procedures Performed prior 72 hours Category Date Time Status CT angio chest [CT] Stat Cat Scan 11/18/16 10:27 Completed Date of admission: 11/16/16 13:52 Primary care physician: Wilton Marcum MD Discharging clinician: Hermelinda Zamarripa Anticipated date of discharge: 11/20/16 - Patient Status Disposition: Home, Self-Care Condition: Good Functional capacity at discharge: independent ambulation Overall status at discharge: patient is back to baseline - Discharge Instructions Follow Up With: Wilton Marcum MD [Primary Care Provider] - - Diet and Activity Activity: increase activity as tolerated Diet: advance to your usual diet Interval History: Ms. Carrasco is a 66 year old female with a history of idiopathic gastroparesis diagnosed in 2004 who has been using a gastric stimulator for the past 5 years comes in with nausea, vomiting. She was reportedly well until about 4 days prior when she began to have the aforementioned symptoms, she vomits several times a day, vomitus is sometimes clear, contains food previously eaten, sometimes green and yellow. No blood has been seen so far. She reports that she has been unable to keep any food down. On the first day of these symptoms she had a bout of loose stools but has had none since. She was informed that the battery of the stimulator was not working and that the next opening she had was in May. She denies abdominal pain, she came in today because her symptoms were unbearable and not responding to the marinol and zofran she had at home. No fever, chills, urinary symptoms or any sign of concurrent infectious process noted. Hospital course: Ms. Carrasco is a 66 year old female admitted for nausea and vomiting. Patient has history of gastroparesis on stimulator. She was treated with nothing by mouth, IV fluid. Her diet has been advanced to gradually and she tolerated well. His hospitalization is complicated by chest pain, serial chest pain workup has been done. Finally, her chest pain was considered due to severe GERD. She was placed on protonix drip and her chest pain has resolved after treatment. Saw and examined the patient today. She is awake alert oriented 3. No more nausea or vomiting. No chest pain. Vitals are stable. Patient was educated to eat less but more frequently, keep upright after eating for at least 2 hours , elevate head of bed during the night. She will take pantoprazole 40 mg twice a day as she was discharged. She will follow-up with her GI doctor as outpatient. - Time Spent with Patient Total time spent providing and/or coordinating discharge services: 40 minutes Greater than 30 minutes - Constitutional Vitals: Temp Pulse Resp BP Pulse Ox 98.1 F 66 17 133/83 94 11/20/16 14:54 11/20/16 14:54 11/20/16 14:54 11/20/16 14:54 11/20/16 14:54 General appearance: Present: A&O X 3, no acute distress, answers questions appropriately - Head Head exam: Present: atraumatic, normocephalic - Eye Eye exam: Present: PERRL, conjuntiva pink, sclera anicteric Pupils: Present: PERRL - Neck Neck exam general surgery: Present: supple, trachea midline. Absent: lymphadenopathy - Respiratory Respiratory exam: Present: CTAB. Absent: accessory muscle use, rales, rhonchi, wheezes - Cardiovascular Cardiovascular exam: Present: RRR, +S1, +S2. Absent: diastolic murmur, gallop, rubs, systolic murmur - GI/Abdominal GI/Abdominal exam: Present: normal bowel sounds, soft, no peritoneal signs. Absent: distended, tenderness - Extremities Exam Extremities exam: Present: warm, radial pulses palpable and symetrical. Absent : calf tenderness, cyanotic, pedal edema - Neurological Exam Neurological exam: Present: CN II-XII intact, oriented X3, no focal deficits. Absent: pronater drift, facial droop, speech deficit - Skin Skin exam: Present: dry, intact
== END 2016-11-20 16:42 | disposition home or self-care (01) | DRG 920 ==
LOC: EMEROO 17:28 → 3BNU 17:28 → SUATTDRO 21:28 → 3BNU 22:17 → SUATTDRO 11-16 13:52
PROVIDERS: ADMIT Registered Nurse; ATTEND Internal Medicine

== ENCOUNTER 2016-11-23 16:20 | Observation (INO) ==
[2016-11-23] MEDS ORDERED: 0.9 % Sodium Chloride 1,000 ML IVC ONE ×2 (17:02→18:12)
--- NOTE | 2016-11-23 17:04 | Emergency Department Note ---
Disposition Clinical Impression: Hyponatremia, Myalgia, Gastroparesis Disposition: Admitted As Inpatient Condition: Good Time of Disposition: 18:25 General Adult HPI - General Chief complaint: ED Abdominal Pain Stated complaint: General Time Seen by Provider: 11/23/16 16:29 Source: patient Limitations: no limitations - History of Present Illness HPI Narrative: Patient presents to the ED if the chief complaint of diffuse muscle spasms, myalgias, nausea and vomiting. Patient was just admitted last week for hypokalemia, hyponatremia and dehydration. She has a history of gastroparesis and has a gastric stimulator. Her battery last week. She saw her surgeon upon discharge on Sunday and states that she will likely need a complete gastric resection now. She presents today with an acute exacerbation of her previous symptoms. She states that her cramps are all over her body at different points and are worse than they were before. She has been unable to eat or drink anything for the past several days. Nonbloody, nonbilious vomiting. No abdominal pain is different than her baseline. She said chest pain or tightness in the past, but none today. No fevers. States she feels very weak and tired and feels almost worse than when she was admitted last time. Pain Scale: 10 - Related Data Home Medications Medication Instructions Recorded Confirmed Amitriptyline [Elavil] 10 mg PO DAILY 11/15/16 11/23/16 Amlodipine Besylate 10 mg PO DAILY 11/15/16 11/23/16 Atorvastatin Calcium [Lipitor] 20 mg PO HS 11/15/16 11/23/16 CarBAMazepine [Tegretol Xr] 400 mg PO HS 11/15/16 11/23/16 Chlorthalidone 25 mg PO DAILY 11/15/16 11/23/16 ClonazePAM [Klonopin] 4 mg PO HS 11/15/16 11/23/16 Dronabinol [Marinol] 5 - 10 mg PO BID PRN 11/15/16 11/23/16 Escitalopram [Lexapro] 20 mg PO DAILY 11/15/16 11/23/16 HydrOXYzine Pamoate [Vistaril] 50 mg PO BID PRN 11/15/16 11/23/16 Loratadine [Claritin] 10 mg PO DAILY 11/15/16 11/23/16 Modafinil [Provigil] 200 mg PO BID 11/15/16 11/23/16 Ondansetron [Zofran ODT] 8 mg SL TID PRN 11/15/16 11/23/16 Oxycodone HCl/Acetaminophen 1 each PO BID PRN 11/15/16 11/23/16 [Percocet 5-325 mg Tablet] Pantoprazole Sodium [Protonix] 40 mg PO BID 11/15/16 11/23/16 Quetiapine Fumarate [Seroquel] 200 mg PO HS 11/15/16 11/23/16 Ropinirole [Requip] 2 mg PO HS 11/15/16 11/23/16 Sertraline [Zoloft] 50 mg PO DAILY 11/15/16 11/23/16 Allergies Allergy/AdvReac Type Severity Reaction Status Date / Time prochlorperazine Allergy Anaphylaxis Verified 11/23/16 18:12 acetaminophen [From Vicodin] AdvReac Nausea Verified 11/23/16 18:12 hydrochlorothiazide AdvReac Rash Verified 11/23/16 18:12 hydrocodone [From Vicodin] AdvReac Nausea Verified 11/23/16 18:12 Hydromorphone [From Dilaudid] AdvReac Nausea Verified 11/23/16 18:12 metoclopramide [From Reglan] AdvReac See Verified 11/23/16 18:12 Comments promethazine [From Phenergan] AdvReac See Verified 11/23/16 18:12 Comments All systems ED: reviewed and negative except as stated. Constitutional: Reports: weakness (generalized). Denies: fever, chills Eyes: Denies: vision change ENT ED: Denies: throat pain Cardiovascular: Reports: chest pain (at times but none today) Gastrointestinal: Reports: nausea, vomiting. Denies: abdominal pain Genitourinary: Denies: dysuria Musculoskeletal: Reports: myalgia. Denies: back pain, neck pain Integumentary: Denies: rash Neurological: Denies: headache Psychiatric: Reports: anxiety Endocrine: Reports: fatigue Past Medical History - Past Medical History Attestation: Yes The following information was validated with the patient. Source: patient Medical history: Reports: asthma, hyperlipidemia, hypertension, other Surgical history: Reports: breast surgery, cholecystectomy, hysterectomy, knee replacement (left), other (right breast lumpectomy, carpal tunnel release) Psychiatric history: Reports: no psych history - Social History Smoking Status: Never smoker Smokeless Tobacco Status: No Alcohol use: Reports: none Drug use: Reports: none Physical Exam - General Limitations: no limitations General appearance: alert, in no apparent distress, anxious - Head Head exam: atraumatic, normocephalic, normal inspection - Eye Eye exam: Present: normal appearance, PERRL, EOMI - ENT ENT exam: normal exam, normal oropharynx, mucous membranes moist - Neck Neck exam: Present: normal inspection, full ROM, trachea midline - Chest Chest inspection: Present: normal inspection, symmetric chest wall rise - Respiratory Respiratory exam: Present: normal lung sounds bilaterally - Cardiovascular Cardiovascular exam: Present: regular rate, normal rhythm, normal heart sounds - Abdominal Exam Abdominal exam: Present: soft, Non-Tender. Absent: tenderness, distention, guarding, rebound, rigidity - Extremities Exam Extremities exam: Present: normal inspection, full ROM. Absent: tenderness, pedal edema - Back Exam Back exam: Present: normal inspection, full ROM. Absent: tenderness - Neurological Exam Neurological exam: Present: alert, oriented X3, CN II-XII intact - Psychiatric Psychiatric exam: Present: normal mood, anxious. Absent: normal affect - Skin Skin exam: Present: warm, dry, intact, normal color Course - Reevaluation(s) Reevaluation #1: We will page the on-call hospitalist for admission for idiopathic hyponatremia. Vital Signs Temperature 98.4 F 11/23/16 16:22 Pulse Rate 85 11/23/16 16:22 Respiratory Rate 14 11/23/16 16:22 Blood Pressure 151/93 11/23/16 16:22 O2 Sat by Pulse Oximetry 95 11/23/16 16:22 Temperature 98.4 F 11/23/16 16:22 Pulse Rate 60 11/23/16 18:51 Respiratory Rate 16 11/23/16 18:51 Blood Pressure 157/81 11/23/16 18:51 O2 Sat by Pulse Oximetry 96 11/23/16 18:51 Oxygen Delivery Oxygen Delivery Room Air Medical Decision Making - Medical Records Medical records reviewed: Yes I reviewed the patient's medical records. - Lab Data Lab results reviewed: Yes I reviewed the patient's lab results. Result diagrams: 11/23/16 17:34 11/23/16 17:34 Lab Results 11/23/16 11/23/16 11/23/16 Range/Units 17:34 17:34 17:34 WBC 9.2 D (4.3-11.1) K/mcL RBC 4.50 (3.82-4.97) M/mcL Hgb 13.3 D (11.5-15.4) g/dL Hct 37.4 (35.3-44.9) % MCV 83.1 (83.0-100.0) fL MCH 29.6 (28.0-33.3) pg MCHC 35.6 H (31.6-35.5) g/dL RDW 12.9 (11.5-14.5) % Plt Count 287 (140-400) K/mcL MPV 9.5 (9.4-12.4) fL Immature Gran % 0.9 (0-4) % Seg Neutrophils % 63.8 % Lymphocytes % 24.5 % Monocytes % 9.3 % Eosinophils % 1.2 % Basophils % 0.3 % Neutrophils # 5.9 (1.6-8.9) K/mcL Lymphocytes # 2.3 (0.6-4.6) K/mcL Monocytes # 0.9 (0.0-1.3) K/mcL Eosinophils # 0.1 (0.0-0.6) K/mcL Basophils # 0.0 (0.0-0.2) K/mcL Immature Plt Fraction 4.0 (1.1-6.1) % PT 10.8 (9.4-12.1) Seconds INR 1.0 APTT 29.3 (26.0-36.0) Seconds Sodium 122 L (136-145) mEq/L Potassium 3.7 (3.5-4.5) mEq/L Chloride 86 L (98-109) mEq/L Carbon Dioxide 24 (19-29) mEq/L BUN 10 (7-20) mg/dL Creatinine 0.67 (0.57-1.11) mg/dL Est GFR ( Amer) > 60 (> 60) Est GFR (Non-Af Amer) > 60 (> 60) BUN/Creatinine Ratio 15 (6-26) Glucose 103 H (70-99) mg/dL Calculated Osmolality 253 L (280-300) Calcium 9.5 (8.6-10.8) mg/dL Magnesium (1.6-2.6) mg/dL Total Bilirubin 0.4 (0.2-1.2) mg/dL Direct Bilirubin 0.2 (0.0-0.5) mg/dL Indirect Bilirubin 0.2 (0.0-1.2) mg/dL AST 35 H (5-34) Units/L ALT 43 (0-55) Units/L Alkaline Phosphatase 59 (38-126) Units/L Creatine Kinase (29-168) Units/L Troponin I (0-0.03) ng/mL Serum Total Protein 7.7 (6.0-8.3) g/dL Albumin 4.0 (3.5-5.0) g/dL Globulin 3.7 H (2.4-3.5) g/dL Albumin/Globulin Ratio 1.1 (1.1-2.2) Lipase 20 (8-78) Units/L Urine Color (Yellow) Urine Clarity (Clear) Urine pH (5.0-8.0) pH Units Ur Specific [place] (1.010-1.025) Urine Protein (Neg-Trace) mg/dL Urine Glucose (UA) (Normal) mg/dL Urine Ketones (Negative) mg/dL Urine Blood (Negative) Urine Nitrite (Negative) Urine Bilirubin (Negative) Urine Urobilinogen (Normal) mg/dL Ur Leukocyte Esterase (Negative) Urine Microscopic RBC (0-3) per hpf Urine Microscopic WBC (0-3) per hpf Ur Squamous Epith Cells (None-Few) per lpf Urine Bacteria (None-Few) per hpf Hyaline Casts (None-Few) per lpf Ur Culture Indicated? (NO) 11/23/16 11/23/16 11/23/16 Range/Units 17:34 17:34 17:34 WBC (4.3-11.1) K/mcL RBC (3.82-4.97) M/mcL Hgb (11.5-15.4) g/dL Hct (35.3-44.9) % MCV (83.0-100.0) fL MCH (28.0-33.3) pg MCHC (31.6-35.5) g/dL RDW (11.5-14.5) % Plt Count (140-400) K/mcL MPV (9.4-12.4) fL Immature Gran % (0-4) % Seg Neutrophils % % Lymphocytes % % Monocytes % % Eosinophils % % Basophils % % Neutrophils # (1.6-8.9) K/mcL Lymphocytes # (0.6-4.6) K/mcL Monocytes # (0.0-1.3) K/mcL Eosinophils # (0.0-0.6) K/mcL Basophils # (0.0-0.2) K/mcL Immature Plt Fraction (1.1-6.1) % PT (9.4-12.1) Seconds INR APTT (26.0-36.0) Seconds Sodium (136-145) mEq/L Potassium (3.5-4.5) mEq/L Chloride (98-109) mEq/L Carbon Dioxide (19-29) mEq/L BUN (7-20) mg/dL Creatinine (0.57-1.11) mg/dL Est GFR ( Amer) (> 60) Est GFR (Non-Af Amer) (> 60) BUN/Creatinine Ratio (6-26) Glucose (70-99) mg/dL Calculated Osmolality (280-300) Calcium (8.6-10.8) mg/dL Magnesium 2.0 (1.6-2.6) mg/dL Total Bilirubin (0.2-1.2) mg/dL Direct Bilirubin (0.0-0.5) mg/dL Indirect Bilirubin (0.0-1.2) mg/dL AST (5-34) Units/L ALT (0-55) Units/L Alkaline Phosphatase 59 (38-126) Units/L Creatine Kinase 129 (29-168) Units/L Troponin I 0.00 (0-0.03) ng/mL Serum Total Protein (6.0-8.3) g/dL Albumin (3.5-5.0) g/dL Globulin (2.4-3.5) g/dL Albumin/Globulin Ratio (1.1-2.2) Lipase (8-78) Units/L Urine Color (Yellow) Urine Clarity (Clear) Urine pH (5.0-8.0) pH Units Ur Specific [place] (1.010-1.025) Urine Protein (Neg-Trace) mg/dL Urine Glucose (UA) (Normal) mg/dL Urine Ketones (Negative) mg/dL Urine Blood (Negative) Urine Nitrite (Negative) Urine Bilirubin (Negative) Urine Urobilinogen (Normal) mg/dL Ur Leukocyte Esterase (Negative) Urine Microscopic RBC (0-3) per hpf Urine Microscopic WBC (0-3) per hpf Ur Squamous Epith Cells (None-Few) per lpf Urine Bacteria (None-Few) per hpf Hyaline Casts (None-Few) per lpf Ur Culture Indicated? (NO) 11/23/16 Range/Units 18:12 WBC (4.3-11.1) K/mcL RBC (3.82-4.97) M/mcL Hgb (11.5-15.4) g/dL Hct (35.3-44.9) % MCV (83.0-100.0) fL MCH (28.0-33.3) pg MCHC (31.6-35.5) g/dL RDW (11.5-14.5) % Plt Count (140-400) K/mcL MPV (9.4-12.4) fL Immature Gran % (0-4) % Seg Neutrophils % % Lymphocytes % % Monocytes % % Eosinophils % % Basophils % % Neutrophils # (1.6-8.9) K/mcL Lymphocytes # (0.6-4.6) K/mcL Monocytes # (0.0-1.3) K/mcL Eosinophils # (0.0-0.6) K/mcL Basophils # (0.0-0.2) K/mcL Immature Plt Fraction (1.1-6.1) % PT (9.4-12.1) Seconds INR APTT (26.0-36.0) Seconds Sodium (136-145) mEq/L Potassium (3.5-4.5) mEq/L Chloride (98-109) mEq/L Carbon Dioxide (19-29) mEq/L BUN (7-20) mg/dL Creatinine (0.57-1.11) mg/dL Est GFR ( Amer) (> 60) Est GFR (Non-Af Amer) (> 60) BUN/Creatinine Ratio (6-26) Glucose (70-99) mg/dL Calculated Osmolality (280-300) Calcium (8.6-10.8) mg/dL Magnesium (1.6-2.6) mg/dL Total Bilirubin (0.2-1.2) mg/dL Direct Bilirubin (0.0-0.5) mg/dL Indirect Bilirubin (0.0-1.2) mg/dL AST (5-34) Units/L ALT (0-55) Units/L Alkaline Phosphatase (38-126) Units/L Creatine Kinase (29-168) Units/L Troponin I (0-0.03) ng/mL Serum Total Protein (6.0-8.3) g/dL Albumin (3.5-5.0) g/dL Globulin (2.4-3.5) g/dL Albumin/Globulin Ratio (1.1-2.2) Lipase (8-78) Units/L Urine Color Yellow (Yellow) Urine Clarity Cloudy A (Clear) Urine pH 7.0 (5.0-8.0) pH Units Ur Specific [place] 1.019 (1.010-1.025) Urine Protein Trace (Neg-Trace) mg/dL Urine Glucose (UA) Normal (Normal) mg/dL Urine Ketones Negative (Negative) mg/dL Urine Blood Negative (Negative) Urine Nitrite Negative (Negative) Urine Bilirubin Negative (Negative) Urine Urobilinogen Normal (Normal) mg/dL Ur Leukocyte Esterase Small H (Negative) Urine Microscopic RBC 3-5 H (0-3) per hpf Urine Microscopic WBC 0-3 (0-3) per hpf Ur Squamous Epith Cells Many H (None-Few) per lpf Urine Bacteria None Seen (None-Few) per hpf Hyaline Casts None Seen (None-Few) per lpf Ur Culture Indicated? YES A (NO) - Radiology Data Radiology results reviewed: Yes I reviewed the patient's radiology results. - EKG Data EKG #1 EKG attestation: Yes I reviewed and interpreted this EKG. EKG results narrative: Sinus rhythm, rate 65, IA interval 184, QRS 86, QTC 361, left axis deviation, nonspecific changes, no acute ischemic changes. S.B.A.R. - S.B.A.R. Situation: Demographics, MOA Background: Presenting Complaint, Relevant PMH, Meds, & Allergies Assessment: Vital Signs, Course and respsone to treatment, Exam Concerns, Patient/Family Expectation, Pertinant Lab Results, Outstanding Labs Recommendation: Recommendation based on pending studies, treatments, or consults S.B.A.R. Report Given to: Dr. Randall
[2016-11-23] MEDS ORDERED: Ondansetron 4 MG/2 ML VIAL IVP ONE (17:27)
[2016-11-23 17:41] LABS: Basophils % 0.3 %; Eosinophils # 0.1 K/mcL (0.0-0.6); Eosinophils % 1.2 %; Hematocrit 37.4 % (35.3-44.9); Immature Granulocytes % 0.9 % (0-4); Lymphocytes # 2.3 K/mcL (0.6-4.6); Lymphocytes % 24.5 %; Mean Corpuscular HGB Conc 35.6 g/dL (31.6-35.5); Mean Corpuscular Hemoglobin 29.6 pg (28.0-33.3); Mean Corpuscular Volume 83.1 fL (83.0-100.0); Mean Platelet Volume 9.5 fL (9.4-12.4); Monocytes # 0.9 K/mcL (0.0-1.3); Monocytes % 9.3 %; Neutrophils # 5.9 K/mcL (1.6-8.9); Platelet Count 287 K/mcL (140-400); Red Cell Distribution Width 12.9 % (11.5-14.5); Segmented Neutrophils % 63.8 %
[2016-11-23 17:46] LABS: Hemoglobin 13.3 g/dL (11.5-15.4)
[2016-11-23 17:47] LABS: Prothrombin Time 10.8 Seconds (9.4-12.1)
[2016-11-23 17:49] LABS: Activated Partial Thrombo Time 29.3 Seconds (26.0-36.0)
[2016-11-23 17:58] LABS: Alanine Aminotransferase 43 Units/L (0-55); Albumin/Globulin Ratio 1.1 (1.1-2.2); Alkaline Phosphatase 59 Units/L (38-126); Aspartate Amino Transferase 35 Units/L (5-34); BUN/Creatinine Ratio 15 (6-26); Bilirubin,Direct 0.2 mg/dL (0.0-0.5); Bilirubin,Indirect 0.2 mg/dL (0.0-1.2); Bilirubin,Total 0.4 mg/dL (0.2-1.2); Blood Urea Nitrogen 10 mg/dL (7-20); Calcium 9.5 mg/dL (8.6-10.8); Carbon Dioxide 24 mEq/L (19-29); Chloride 86 mEq/L (98-109); Globulin 3.7 g/dL (2.4-3.5); Glucose 103 mg/dL (70-99); Lipase 20 Units/L (8-78); Osmolality,Calculated 253 (280-300); Potassium 3.7 mEq/L (3.5-4.5); Sodium 122 mEq/L (136-145); Total Protein 7.7 g/dL (6.0-8.3); eGFR For African Americans > 60 (> 60); eGFR For Non-African Americans > 60 (> 60)
[2016-11-23 18:25] LABS: Bilirubin,Urine Negative (Negative); Blood,Urine Negative (Negative); Clarity,Urine Cloudy (Clear); Color,Urine Yellow (Yellow); Glucose,Urine (UA) Normal (Normal); Ketones,Urine Negative (Negative); Leukocyte Esterase,Urine Small (Negative); Nitrite,Urine Negative (Negative); Protein,Urine Trace mg/dL (Neg-Trace); Specific Gravity,Urine 1.019 (1.010-1.025); Urobilinogen,Urine Normal (Normal)
[2016-11-23 18:27] LABS: Bacteria,Urine None Seen per hpf (None-Few); Hyaline Casts,Urine None Seen per lpf (None-Few); Squamous Epithelial Cell,Urine Many per lpf (None-Few); WBC,Urine 0-3 per hpf (0-3)
[2016-11-23] MEDS ORDERED: Naloxone 0.4 MG/ML INJ IVP PRN ×2 (20:10→20:23)
[2016-11-23] MEDS ORDERED: 0.9 % Sodium Chloride 1,000 ML IVC SCH (20:15)
[2016-11-23] MEDS ORDERED: hydrOXYzine pamoate 25 MG CAPSULE PO PRN (20:26)
--- NOTE | 2016-11-23 20:39 | Internal Med History&Physical ---
Date of Encounter: 11/23/16 Time of Encounter: 20:32 Assessment and Plan (1) Hyponatremia Current visit: Yes Status: Acute -Na 122. Patient normal Na is high 120's to low 130's -Patient taking chlorothiodone diuretic. Thiazide induced hyptonatremia vs N/V due to gastroparesis. No need to do big workup for hyponatremia at this time. -Patient does complain of [place] and muscle cramps. Denies blurry vision, confusion , severe neurological symptoms. -Hypertonic saline not warranted. -Patient not edematous, no CHF, cirrhosis, pedal edema, SIADH. No need to fluid restrict -Don't correct hyponatremia too quickly to prevent CPM -Will advance diet as tolerated. Make sure patient is not drinking excessive amount of fluids. Monitor. - Plan -Stop home med Chlorothiodone -Monitor fluid intake. -Labs in morning -Advance diet as tolerated. (2) Dehydration Current visit: Yes Status: Acute -Mucus membranes dry -Fluids: NS at 75 -Measure I and O per shift (3) Gastroparesis Current visit: Yes Status: Acute -Diagnosed in 2004. See HPI -Stomach stimulator "battery ". Per patient, plans to undergo gastrectomy by Dr. Axel Lopez ([facility]). Still in scheduling/insurance approval needed Plan -Consider call to Dr. Axel Lopez (sp?) (4) DVT prophylaxis Current visit: No Status: Acute lovenox (5) Asthma Current visit: No Status: Chronic -Mild. Patient denies inhaler use and doesnt need medication at this time. Continue to monitor. Qualifiers: Asthma severity: mild intermittent Asthma complication type: uncomplicated Qualified Code(s): J45.20 - Mild intermittent asthma, uncomplicated (6) Myalgia Current visit: Yes Status: Acute -see above. Flu test ordered. Awaiting results. (7) HTN (hypertension) Current visit: Yes Status: Chronic Continue home meds Qualifiers: Hypertension type: essential hypertension Qualified Code(s): I10 - Essential (primary) hypertension Internal Medicine - H&P: HPI Chief complaint: Myalgias, diffused muscle spasms, N/V Admitted From: Emergency Dept Plans for Post Hospital Care: Home History of present illness: Ms. Carrasco is a 66 year old female, PMH gastroparesis requiring stimulator, depression, HTN, admitted for hyponatremia, N/V. Patient admitted last week for same problem. Since that time, patient has seen the surgeon who implanted gastric stimulator, Dr. Axel Lopez. She was told her battery has and there are plans to have a gastrectomy. Gastroparesis started randomly after [place] vacation in 2004. started getting N/V, seen by doctor and diagnosed. She does not have diabetes. After visit with surgeon, patient began to have N/V, worsen with eating. Muscle cramps began shortly after and are diffused throughout body.She admits to mild diarrhea that started today and a headache. Diarrhea Not bloody. She denies Blurry vision, CP, SOB, FND, abdominal pain, urinary complaints, parasthesias/numbness in hands and feet. Past Med Surg Social Fam HX - Past Medical History Medical history: asthma, hyperlipidemia, hypertension, other Psychiatric history: depression - Past Surgical History Surgical History: breast surgery, cholecystectomy, hysterectomy, knee replacement (left), other (right breast lumpectomy, carpal tunnel release) - Social History Smoking Status: Never smoker Smokeless Tobacco Status: No Alcohol use: none Drug use: none - Family History Mother Hx Family Cancer: Yes (BREAST CA) Hx Family Endocrine Disorder: Yes (DM) Internal Medicine - H&P: Meds Amitriptyline [Elavil] 10 mg PO DAILY 11/15/16 [History] Amlodipine Besylate 10 mg PO DAILY 11/15/16 [History] Atorvastatin Calcium [Lipitor] 20 mg PO HS 11/15/16 [History] CarBAMazepine [Tegretol Xr] 400 mg PO HS 11/15/16 [History] Chlorthalidone 25 mg PO DAILY 11/15/16 [History] ClonazePAM [Klonopin] 4 mg PO HS 11/15/16 [History] Dronabinol [Marinol] 5 - 10 mg PO BID PRN 11/15/16 [History] Escitalopram [Lexapro] 20 mg PO DAILY 11/15/16 [History] HydrOXYzine Pamoate [Vistaril] 50 mg PO BID PRN 11/15/16 [History] Loratadine [Claritin] 10 mg PO DAILY 11/15/16 [History] Modafinil [Provigil] 200 mg PO BID 11/15/16 [History] Ondansetron [Zofran ODT] 8 mg SL TID PRN 11/15/16 [History] Oxycodone HCl/Acetaminophen [Percocet 5-325 mg Tablet] 1 each PO BID PRN [History] Pantoprazole Sodium [Protonix] 40 mg PO BID 11/15/16 [History] Quetiapine Fumarate [Seroquel] 200 mg PO HS 11/15/16 [History] Ropinirole [Requip] 2 mg PO HS 11/15/16 [History] Sertraline [Zoloft] 50 mg PO DAILY 11/15/16 [History] Allergies prochlorperazine Allergy (Verified 11/23/16 18:12) Anaphylaxis acetaminophen [From Vicodin] Adverse Reaction (Verified 11/23/16 18:12) Nausea hydrochlorothiazide Adverse Reaction (Verified 11/23/16 18:12) Rash hydrocodone [From Vicodin] Adverse Reaction (Verified 11/23/16 18:12) Nausea Hydromorphone [From Dilaudid] Adverse Reaction (Verified 11/23/16 18:12) Nausea metoclopramide [From Reglan] Adverse Reaction (Verified 11/23/16 18:12) See Comments shakey promethazine [From Phenergan] Adverse Reaction (Verified 11/23/16 18:12) See Comments restless legs All Systems PM: A 10-system review of systems was performed and is negative for pertinent findings except as documented above in the HPI. - Constitutional Constitutional: as per HPI - EENT Eyes: no change in vision, no discharge, no pain, no photophobia - Cardiovascular Cardiovascular ROS IM: no chest pain, no diaphoresis, no dyspnea, no lightheadedness, no palpitations, no syncope - Respiratory Respiratory: no cough, no dyspnea, no wheezing, no excessive phlegm production - Gastrointestinal Gastrointestinal: as per HPI - Constitutional Vitals: Temp Pulse Resp BP Pulse Ox 98.4 F 60 16 151/83 96 11/23/16 16:22 11/23/16 18:51 11/23/16 19:38 11/23/16 19:38 11/23/16 18:51 General appearance: Present: mild distress, A&O X 3, answers questions appropriately - Head Head exam: Present: atraumatic, normocephalic - Eye Eye exam: Present: PERRL, conjuntiva pink, sclera anicteric Pupils: Present: PERRL - ENT ENT exam: Present: mucous membranes dry - Neck Neck exam general surgery: Present: supple, trachea midline. Absent: lymphadenopathy - Respiratory Respiratory exam: Present: CTAB. Absent: accessory muscle use, rales, rhonchi, wheezes - Cardiovascular Cardiovascular exam: Present: RRR, +S1, +S2. Absent: diastolic murmur, gallop, rubs, systolic murmur - GI/Abdominal GI/Abdominal exam: Present: soft, no peritoneal signs. Absent: tenderness Additional comments: gastric stimulator on L side. Multiple bruising on abdomen from lovenox shots during previous hospital visit. - Extremities Exam Extremities exam: Present: warm, radial pulses palpable and symetrical. Absent : calf tenderness, cyanotic, pedal edema - Neurological Exam Neurological exam: Present: CN II-XII intact, oriented X3, no focal deficits. Absent: facial droop, speech deficit - Psychiatric Psychiatric exam: Present: normal affect, normal mood Internal Med - H&P Results - Labs CBC & Chem 7: 11/23/16 17:34 11/23/16 17:34
[2016-11-23] MEDS ORDERED: CLONAZEPAM 4 MG PO SCH (21:00)
[2016-11-23] MEDS ORDERED: clonazePAM 1 MG TABLET PO SCH (21:00)
[2016-11-23] MEDS: Ondansetron 4 MG/2 ML VIAL IVP PRN (21:29)
[2016-11-23] MEDS: CarBAMazepine XR (12 hr) 100 MG TAB PO SCH (21:38)
[2016-11-23] MEDS: rOPINIRole 1 MG TABLET PO SCH (21:38)
[2016-11-23] MEDS: *HR* OxyCODONE/APAP 5/325 TABLET PO PRN (21:50)
[2016-11-24] MEDS ORDERED: 0.9 % Sodium Chloride 1,000 ML IVC SCH (00:48)
[2016-11-24 05:17] LABS: Basophils % 0.5 %; Eosinophils # 0.2 K/mcL (0.0-0.6); Eosinophils % 2.4 %; Immature Granulocytes % 1.1 % (0-4); Lymphocytes # 2.1 K/mcL (0.6-4.6); Lymphocytes % 31.6 %; Mean Corpuscular HGB Conc 34.1 g/dL (31.6-35.5); Mean Corpuscular Hemoglobin 29.1 pg (28.0-33.3); Mean Corpuscular Volume 85.2 fL (83.0-100.0); Mean Platelet Volume 9.7 fL (9.4-12.4); Monocytes # 0.7 K/mcL (0.0-1.3); Monocytes % 10.3 %; Neutrophils # 3.6 K/mcL (1.6-8.9); Platelet Count 213 K/mcL (140-400); Red Blood Count 3.99 M/mcL (3.82-4.97); Red Cell Distribution Width 12.8 % (11.5-14.5); Segmented Neutrophils % 54.1 %
[2016-11-24 05:19] LABS: Hemoglobin 11.6 g/dL (11.5-15.4)
[2016-11-24 05:36] LABS: BUN/Creatinine Ratio 12 (6-26); Blood Urea Nitrogen 7 mg/dL (7-20); Calcium 8.1 mg/dL (8.6-10.8); Carbon Dioxide 24 mEq/L (19-29); Chloride 95 mEq/L (98-109); Glucose 95 mg/dL (70-99); Osmolality,Calculated 262 (280-300); Potassium 3.1 mEq/L (3.5-4.5); Sodium 127 mEq/L (136-145); eGFR For African Americans > 60 (> 60); eGFR For Non-African Americans > 60 (> 60)
[2016-11-24] MEDS: *HR* Enoxaparin 40 MG/0.4 ML SYRINGE SQ SCH (06:02)
[2016-11-24] MEDS: Pantoprazole 40 MG VIAL IVP SCH ×2 (06:02→16:48)
[2016-11-24] MEDS ORDERED: Potassium Chloride Elixir 20 MEQ/15 ML UDC PO ONE ×2 (07:41→15:51)
[2016-11-24] MEDS: *HR* OxyCODONE/APAP 5/325 TABLET PO PRN ×2 (08:41→21:25)
[2016-11-24] MEDS: Ondansetron 4 MG/2 ML VIAL IVP PRN ×3 (08:41→21:26)
[2016-11-24] MEDS: amLODIPine 5 MG TABLET PO SCH (08:41)
[2016-11-24] MEDS: Loratadine 10 MG TABLET PO SCH (08:41)
--- NOTE | 2016-11-24 09:22 | Internal Med Progress Note ---
Date of Encounter: 11/24/16 Time of Encounter: 08:35 - Assessment and plan (1) Hypokalemia Current Visit: Yes Status: Acute Assessment and plan: Likely secondary to GI losses. Replace with oral and IV potassium chloride, continue to monitor. (2) Dehydration Current Visit: Yes Status: Acute Assessment and plan: Secondary to persistent emesis. IV hydration. (3) Hyponatremia Current Visit: Yes Status: Acute Assessment and plan: Patient has recurrent episodes of acute hyponatremia, due to nausea and vomiting. Received IV hydration with normal saline and serum sodium noted to have improved to 127 from 122. Hold IV fluids at this time, encouraged oral hydration. (4) Gastroparesis Current Visit: Yes Status: Chronic Assessment and plan: Patient was diagnosed with unexplained gastroparesis almost 10 years back and she received a gastric stimulator, which has been replaced once so far. She reports that stimulator battery ran out recently. She does follow with gastroenterology and bariatric surgery at [facility] for this. I have discussed with Dr. Jacob Alexandre, patient's environmental protection specialist at [facility], who recommends continuing symptomatic and supportive treatment at this time and recommend for patient to call his office and follow-up as outpatient for further management. Continue when necessary Zofran and diet as tolerated. (5) HTN (hypertension) Current Visit: Yes Status: Chronic Qualifiers: Hypertension type: essential hypertension Qualified Code(s): I10 - Essential (primary) hypertension (6) Asthma Current Visit: Yes Status: Chronic Qualifiers: Asthma severity: mild intermittent Asthma complication type: uncomplicated Qualified Code(s): J45.20 - Mild intermittent asthma, uncomplicated - Subjective Interval history: Continues to feel nauseous associated with vomiting and diffuse muscle cramps and myalgias; no abdominal pain, diarrhea, fever/chills; - Constitutional Vitals: Temp Pulse Resp BP Pulse Ox 98.1 F 58 16 145/86 97 11/24/16 07:35 11/24/16 07:35 11/24/16 07:35 11/24/16 07:35 11/24/16 07:35 General appearance: Present: A&O X 3, answers questions appropriately - Respiratory Respiratory exam: Present: CTAB. Absent: accessory muscle use, rales, rhonchi, wheezes - Cardiovascular Cardiovascular exam: Present: RRR, +S1, +S2. Absent: diastolic murmur, gallop, rubs, systolic murmur - GI/Abdominal GI/Abdominal exam: Present: normal bowel sounds, soft, no peritoneal signs. Absent: distended, tenderness Internal Medicine: Result - Labs CBC & Chem 7: 11/24/16 04:41 11/24/16 13:38 Labs: Short CBC 11/24/16 Range/Units 04:41 WBC 6.6 (4.3-11.1) K/mcL Hgb 11.6 D (11.5-15.4) g/dL Hct 34.0 L (35.3-44.9) % Plt Count 213 (140-400) K/mcL Neutrophils # 3.6 (1.6-8.9) K/mcL BMP 11/24/16 04:41 Sodium 127 L Potassium 3.1 L Chloride 95 L Carbon Dioxide 24 BUN 7 Creatinine 0.59 Glucose 95 Calcium 8.1 L - ABG Interpretation ABG results: PT/INR, D-dimer PT 10.8 Seconds (9.4-12.1) 11/23/16 17:34 Consult Discharge Plan - Plan Referrals: Wilton Marcum MD [Primary Care Provider] - (OFFICE WOULD NOT SCHEDULE AT THIS TIME. WAS TOLD TO CALL BACK WHEN PATIENT IS DISCHARGED)
[2016-11-24 13:59] LABS: BUN/Creatinine Ratio 8 (6-26); Blood Urea Nitrogen 6 mg/dL (7-20); Calcium 8.6 mg/dL (8.6-10.8); Carbon Dioxide 25 mEq/L (19-29); Chloride 98 mEq/L (98-109); Glucose 85 mg/dL (70-99); Magnesium 1.9 mg/dL (1.6-2.6); Osmolality,Calculated 271 (280-300); Potassium 3.3 mEq/L (3.5-4.5); Sodium 132 mEq/L (136-145); eGFR For African Americans > 60 (> 60); eGFR For Non-African Americans > 60 (> 60)
--- NOTE | 2016-11-24 17:43 | Electrocardiograph Report ---
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
[2016-11-24] MEDS: clonazePAM 1 MG TABLET PO SCH (21:24)
[2016-11-24] MEDS: CarBAMazepine XR (12 hr) 100 MG TAB PO SCH (21:25)
[2016-11-24] MEDS: rOPINIRole 1 MG TABLET PO SCH (21:25)
[2016-11-25] MEDS ORDERED: rOPINIRole 1 MG TABLET PO ONE (00:35)
[2016-11-25 05:13] LABS: Magnesium 1.8 mg/dL (1.6-2.6)
[2016-11-25 05:18] LABS: BUN/Creatinine Ratio 10 (6-26); Blood Urea Nitrogen 7 mg/dL (7-20); Calcium 8.9 mg/dL (8.6-10.8); Carbon Dioxide 26 mEq/L (19-29); Chloride 97 mEq/L (98-109); Glucose 86 mg/dL (70-99); Osmolality,Calculated 269 (280-300); Potassium 3.6 mEq/L (3.5-4.5); Sodium 131 mEq/L (136-145); eGFR For African Americans > 60 (> 60); eGFR For Non-African Americans > 60 (> 60)
[2016-11-25] MEDS: *HR* Enoxaparin 40 MG/0.4 ML SYRINGE SQ SCH (06:30)
[2016-11-25] MEDS: Pantoprazole 40 MG VIAL IVP SCH ×2 (06:30→18:05)
[2016-11-25] MEDS: amLODIPine 5 MG TABLET PO SCH (08:06)
[2016-11-25] MEDS: Loratadine 10 MG TABLET PO SCH (08:06)
[2016-11-25] MEDS: Ondansetron 4 MG/2 ML VIAL IVP PRN ×3 (08:07→20:55)
[2016-11-25] MEDS ORDERED: 0.9 % Sodium Chloride 1,000 ML ONE (08:18)
--- NOTE | 2016-11-25 08:19 | Internal Med Progress Note ---
Date of Encounter: 11/25/16 Time of Encounter: 08:18 - Assessment and plan (1) Hypokalemia Current Visit: Yes Status: Resolved Assessment and plan: Likely secondary to GI losses. Improved with supplementation; (2) Dehydration Current Visit: Yes Status: Acute Assessment and plan: Secondary to persistent emesis. IV hydration. (3) Hyponatremia Current Visit: Yes Status: Acute Assessment and plan: Patient has recurrent episodes of acute hyponatremia, due to nausea and vomiting. Serum sodium noted to be 131 today. Has been started on half normal saline overnight, will change to normal saline and continue to monitor. encouraged oral hydration. (4) Gastroparesis Current Visit: Yes Status: Chronic Assessment and plan: Patient was diagnosed with unexplained gastroparesis almost 10 years back and she received a gastric stimulator, which has been replaced once so far. She reports that stimulator battery ran out recently. She does follow with gastroenterology and bariatric surgery at [facility] for this. I have discussed with Dr. Jacob Alexandre, patient's warehouse traffic supervisor at [facility], who recommends continuing symptomatic and supportive treatment at this time and recommend for patient to call his office and follow-up as outpatient for further management. 11/25- continues to report symptoms. Continue when necessary Zofran; also reports diarrhea, change diet to soft diet and monitor. (5) HTN (hypertension) Current Visit: Yes Status: Chronic Qualifiers: Hypertension type: essential hypertension Qualified Code(s): I10 - Essential (primary) hypertension (6) Asthma Current Visit: Yes Status: Chronic Assessment and plan: Not in acute exacerbation. Continue when necessary bronchodilators and supplemental oxygen. Qualifiers: Asthma severity: mild intermittent Asthma complication type: uncomplicated Qualified Code(s): J45.20 - Mild intermittent asthma, uncomplicated (7) Anxiety Current Visit: Yes Status: Chronic Assessment and plan: Continue home dose of benzodiazepines. (8) Depression Current Visit: Yes Status: Chronic Assessment and plan: Continue home medications. Qualifiers: Depression Type: unspecified Qualified Code(s): F32.9 - Major depressive disorder, single episode, unspecified - Subjective Interval history: Reports not feeling well, persistent nausea, vomiting and loose watery diarrhea ; requests for solid food; noted to be very talkative and cheerful, however reports feeling miserable; - Constitutional Vitals: Temp Pulse Resp BP Pulse Ox 97.6 F 64 16 113/75 95 11/25/16 07:18 11/25/16 07:18 11/25/16 07:18 11/25/16 07:18 11/25/16 07:18 General appearance: Present: A&O X 3, answers questions appropriately - Respiratory Respiratory exam: Present: CTAB. Absent: accessory muscle use, rales, rhonchi, wheezes - Cardiovascular Cardiovascular exam: Present: RRR, +S1, +S2. Absent: diastolic murmur, gallop, rubs, systolic murmur - GI/Abdominal GI/Abdominal exam: Present: normal bowel sounds, soft (obese), no peritoneal signs. Absent: distended, tenderness Internal Medicine: Result - Labs CBC & Chem 7: 11/24/16 04:41 11/25/16 03:16 Labs: BMP 11/24/16 11/25/16 13:38 03:16 Sodium 132 L 131 L Potassium 3.3 L 3.6 Chloride 98 97 L Carbon Dioxide 25 26 BUN 6 L 7 Creatinine 0.71 0.69 Glucose 85 86 Calcium 8.6 8.9 - ABG Interpretation ABG results: PT/INR, D-dimer PT 10.8 Seconds (9.4-12.1) 11/23/16 17:34 Consult Discharge Plan - Plan Referrals: Jossue,Wilton Sol MD [Primary Care Provider] - (OFFICE WOULD NOT SCHEDULE AT THIS TIME. WAS TOLD TO CALL BACK WHEN PATIENT IS DISCHARGED)
[2016-11-25] MEDS: *HR* OxyCODONE/APAP 5/325 TABLET PO PRN ×2 (11:09→22:09)
[2016-11-25] MEDS: 0.9 % Sodium Chloride 1,000 ML IVC SCH ×2 (11:10→18:11)
[2016-11-25] MEDS: clonazePAM 1 MG TABLET PO SCH (21:47)
[2016-11-25] MEDS: rOPINIRole 1 MG TABLET PO SCH (21:47)
[2016-11-25] MEDS: CarBAMazepine XR (12 hr) 100 MG TAB PO SCH (21:47)
[2016-11-26] MEDS: Ondansetron 4 MG/2 ML VIAL IVP PRN ×4 (03:13→20:08)
[2016-11-26] MEDS: Pantoprazole 40 MG VIAL IVP SCH ×2 (05:06→18:09)
[2016-11-26 05:22] LABS: BUN/Creatinine Ratio 10 (6-26); Blood Urea Nitrogen 7 mg/dL (7-20); Calcium 8.5 mg/dL (8.6-10.8); Carbon Dioxide 24 mEq/L (19-29); Chloride 101 mEq/L (98-109); Glucose 126 mg/dL (70-99); Osmolality,Calculated 276 (280-300); Potassium 3.7 mEq/L (3.5-4.5); Sodium 133 mEq/L (136-145); eGFR For African Americans > 60 (> 60); eGFR For Non-African Americans > 60 (> 60)
[2016-11-26] MEDS: *HR* OxyCODONE/APAP 5/325 TABLET PO PRN ×2 (06:14→22:18)
[2016-11-26] MEDS: 0.9 % Sodium Chloride 1,000 ML IVC SCH ×2 (07:46→15:54)
[2016-11-26] MEDS: *HR* Enoxaparin 40 MG/0.4 ML SYRINGE SQ SCH (07:47)
[2016-11-26] MEDS: amLODIPine 5 MG TABLET PO SCH (07:50)
[2016-11-26] MEDS: Loratadine 10 MG TABLET PO SCH (07:50)
--- NOTE | 2016-11-26 09:11 | Internal Med Progress Note ---
Date of Encounter: 11/26/16 Time of Encounter: 09:10 - Assessment and plan (1) Hypokalemia Current Visit: Yes Status: Resolved (2) Dehydration Current Visit: Yes Status: Acute Assessment and plan: Secondary to persistent emesis. Improving. IV hydration. (3) Hyponatremia Current Visit: Yes Status: Acute Assessment and plan: Patient has recurrent episodes of acute hyponatremia, due to nausea and vomiting. Serum sodium noted to be 133 today. Continue normal saline and continue to monitor. encouraged oral hydration. No vomiting but continues to have nausea; (4) Gastroparesis Current Visit: Yes Status: Chronic Assessment and plan: Patient was diagnosed with unexplained gastroparesis almost 10 years back and she received a gastric stimulator, which has been replaced once so far. She reports that stimulator battery ran out recently. She does follow with gastroenterology and bariatric surgery at [facility] for this. I have discussed with Dr. Jacob Alexandre, patient's forest nursery supervisor at [facility], who recommends continuing symptomatic and supportive treatment at this time and recommend for patient to call his office and follow-up as outpatient for further management. 11/25- continues to report symptoms. Continue when necessary Zofran; also reports diarrhea, change diet to soft diet and monitor. 11/26- persistent nausea. Continue Zofran and add Phenergan along with Benadryl as patient has restless legs with Phenergan. Soft diet as tolerated. (5) HTN (hypertension) Current Visit: Yes Status: Chronic Assessment and plan: Blood pressure noted to be well controlled. Continue home medications. Qualifiers: Hypertension type: essential hypertension Qualified Code(s): I10 - Essential (primary) hypertension (6) Asthma Current Visit: Yes Status: Chronic Assessment and plan: Not in acute exacerbation. Continue when necessary bronchodilators and supplemental oxygen. Qualifiers: Asthma severity: mild intermittent Asthma complication type: uncomplicated Qualified Code(s): J45.20 - Mild intermittent asthma, uncomplicated (7) Anxiety Current Visit: Yes Status: Chronic (8) Depression Current Visit: Yes Status: Chronic Qualifiers: Depression Type: unspecified Qualified Code(s): F32.9 - Major depressive disorder, single episode, unspecified - Subjective Interval history: Continues to report nausea, unable to throw up, but feels very uncomfortable; not ready to go home; no abdominal pain, improved diarrhea; - Constitutional Vitals: Temp Pulse Resp BP Pulse Ox 98.1 F 64 16 122/69 94 11/26/16 07:21 11/26/16 07:21 11/26/16 07:21 11/26/16 07:21 11/26/16 08:12 General appearance: Present: mild distress (due to nausea), A&O X 3, answers questions appropriately - Respiratory Respiratory exam: Present: CTAB. Absent: accessory muscle use, rales, rhonchi, wheezes - Cardiovascular Cardiovascular exam: Present: RRR, +S1, +S2. Absent: diastolic murmur, gallop, rubs, systolic murmur - GI/Abdominal GI/Abdominal exam: Present: normal bowel sounds, soft, no peritoneal signs. Absent: distended, tenderness Internal Medicine: Result - Labs CBC & Chem 7: 11/24/16 04:41 11/26/16 05:02 Labs: BMP 11/26/16 05:02 Sodium 133 L Potassium 3.7 Chloride 101 Carbon Dioxide 24 BUN 7 Creatinine 0.71 Glucose 126 H Calcium 8.5 L - ABG Interpretation ABG results: PT/INR, D-dimer PT 10.8 Seconds (9.4-12.1) 11/23/16 17:34 Consult Discharge Plan - Plan Referrals: Jossue,Wilton Sol MD [Primary Care Provider] - (OFFICE WOULD NOT SCHEDULE AT THIS TIME. WAS TOLD TO CALL BACK WHEN PATIENT IS DISCHARGED)
[2016-11-26] MEDS: *HR* Promethazine 25 MG/ML VIAL IVP PRN ×2 (13:56→22:18)
[2016-11-26] MEDS: CarBAMazepine XR (12 hr) 100 MG TAB PO SCH (20:07)
[2016-11-26] MEDS: rOPINIRole 1 MG TABLET PO SCH (20:07)
[2016-11-26] MEDS: clonazePAM 1 MG TABLET PO SCH (20:07)
[2016-11-27] MEDS: 0.9 % Sodium Chloride 1,000 ML IVC SCH ×2 (01:55→11:32)
[2016-11-27] MEDS: Ondansetron 4 MG/2 ML VIAL IVP PRN ×4 (03:30→19:58)
[2016-11-27] MEDS: Pantoprazole 40 MG VIAL IVP SCH ×2 (05:07→17:30)
[2016-11-27] MEDS: *HR* Promethazine 25 MG/ML VIAL IVP PRN ×4 (05:08→23:57)
[2016-11-27 05:16] LABS: BUN/Creatinine Ratio 10 (6-26); Blood Urea Nitrogen 7 mg/dL (7-20); Calcium 8.7 mg/dL (8.6-10.8); Carbon Dioxide 27 mEq/L (19-29); Chloride 100 mEq/L (98-109); Glucose 85 mg/dL (70-99); Osmolality,Calculated 273 (280-300); Potassium 3.9 mEq/L (3.5-4.5); Sodium 133 mEq/L (136-145); eGFR For African Americans > 60 (> 60); eGFR For Non-African Americans > 60 (> 60)
[2016-11-27 05:19] LABS: Magnesium 2.1 mg/dL (1.6-2.6)
[2016-11-27] MEDS: *HR* Enoxaparin 40 MG/0.4 ML SYRINGE SQ SCH (06:30)
--- NOTE | 2016-11-27 08:52 | Internal Med Progress Note ---
Date of Encounter: 11/27/16 Time of Encounter: 08:47 - Assessment and plan (1) Hypokalemia Current Visit: Yes Status: Resolved (2) Dehydration Current Visit: Yes Status: Resolved (3) Hyponatremia Current Visit: Yes Status: Acute Assessment and plan: Patient has recurrent episodes of acute hyponatremia, due to nausea and vomiting. Serum sodium noted to be stable at 133 today. Continue normal saline and continue to monitor. encourage oral hydration. No vomiting but continues to have nausea and dry heaves; Case d/w Dr.Pierre Lopez, bariatric surgeon at [facility], who agrees there is no need for urgent surgical intervention at this time, and no indication for inpatient transfer; awaiting insurance approval for outpatient gastric stimulator replacement by him; (4) Gastroparesis Current Visit: Yes Status: Chronic Assessment and plan: Patient was diagnosed with unexplained gastroparesis almost 10 years back and she received a gastric stimulator, which has been replaced once so far. She reports that stimulator battery ran out recently. She does follow with gastroenterology and bariatric surgery at [facility] for this. I have discussed with Dr. Jacob Alexandre, patient's label drier at [facility], who recommends continuing symptomatic and supportive treatment at this time and recommend for patient to call his office and follow-up as outpatient for further management. 11/25- continues to report symptoms. Continue when necessary Zofran; also reports diarrhea, change diet to soft diet and monitor. 11/26- persistent nausea. Continue Zofran and add Phenergan along with Benadryl as patient has restless legs with Phenergan. Soft diet as tolerated. 11/27- continue current management; d/w , patient's surgeon, plan as above; (5) HTN (hypertension) Current Visit: Yes Status: Chronic Qualifiers: Hypertension type: essential hypertension Qualified Code(s): I10 - Essential (primary) hypertension (6) Asthma Current Visit: Yes Status: Chronic Qualifiers: Asthma severity: mild intermittent Asthma complication type: uncomplicated Qualified Code(s): J45.20 - Mild intermittent asthma, uncomplicated (7) Anxiety Current Visit: Yes Status: Chronic (8) Depression Current Visit: Yes Status: Chronic Qualifiers: Depression Type: unspecified Qualified Code(s): F32.9 - Major depressive disorder, single episode, unspecified - Subjective Interval history: Continues to have persistent nausea and dry heaves; using 4-5 doses of Zofran and Phenergan per day; improved diarrhea; no abdominal pain; - Constitutional Vitals: Temp Pulse Resp BP Pulse Ox 98.3 F 61 17 154/84 96 11/27/16 08:01 11/27/16 08:01 11/27/16 08:01 11/27/16 08:01 11/27/16 08:01 General appearance: Present: A&O X 3, answers questions appropriately - Respiratory Respiratory exam: Present: CTAB. Absent: accessory muscle use, rales, rhonchi, wheezes - Cardiovascular Cardiovascular exam: Present: RRR, +S1, +S2. Absent: diastolic murmur, gallop, rubs, systolic murmur - GI/Abdominal GI/Abdominal exam: Present: normal bowel sounds, soft, no peritoneal signs. Absent: distended, tenderness - Neurological Exam Neurological exam: Present: CN II-XII intact, oriented X3, no focal deficits. Absent: pronater drift, facial droop, speech deficit Internal Medicine: Result - Labs CBC & Chem 7: 11/24/16 04:41 11/27/16 04:18 Labs: BMP 11/27/16 04:18 Sodium 133 L Potassium 3.9 Chloride 100 Carbon Dioxide 27 BUN 7 Creatinine 0.70 Glucose 85 Calcium 8.7 - ABG Interpretation ABG results: PT/INR, D-dimer PT 10.8 Seconds (9.4-12.1) 11/23/16 17:34 Consult Discharge Plan - Plan Referrals: Wilton Marcum MD [Primary Care Provider] - (OFFICE WOULD NOT SCHEDULE AT THIS TIME. WAS TOLD TO CALL BACK WHEN PATIENT IS DISCHARGED)
[2016-11-27] MEDS: amLODIPine 5 MG TABLET PO SCH (09:29)
[2016-11-27] MEDS: *HR* OxyCODONE/APAP 5/325 TABLET PO PRN (09:36)
[2016-11-27] MEDS: rOPINIRole 1 MG TABLET PO SCH (19:58)
[2016-11-27] MEDS: clonazePAM 1 MG TABLET PO SCH (19:58)
[2016-11-27] MEDS: CarBAMazepine XR (12 hr) 100 MG TAB PO SCH (19:59)
[2016-11-28] MEDS: Ondansetron 4 MG/2 ML VIAL IVP PRN ×4 (02:09→20:29)
[2016-11-28 05:53] LABS: BUN/Creatinine Ratio 11 (6-26); Blood Urea Nitrogen 8 mg/dL (7-20); Calcium 9.1 mg/dL (8.6-10.8); Carbon Dioxide 29 mEq/L (19-29); Chloride 99 mEq/L (98-109); Glucose 97 mg/dL (70-99); Magnesium 2.1 mg/dL (1.6-2.6); Osmolality,Calculated 278 (280-300); Potassium 4.1 mEq/L (3.5-4.5); Sodium 135 mEq/L (136-145); eGFR For African Americans > 60 (> 60); eGFR For Non-African Americans > 60 (> 60)
[2016-11-28] MEDS: *HR* Promethazine 25 MG/ML VIAL IVP PRN ×3 (06:01→17:52)
[2016-11-28] MEDS: Pantoprazole 40 MG VIAL IVP SCH (06:01)
[2016-11-28] MEDS: *HR* Enoxaparin 40 MG/0.4 ML SYRINGE SQ SCH (06:01)
[2016-11-28] MEDS: *HR* OxyCODONE/APAP 5/325 TABLET PO PRN (06:47)
[2016-11-28] MEDS: amLODIPine 5 MG TABLET PO SCH (08:44)
--- NOTE | 2016-11-28 15:06 | Internal Med Progress Note ---
Date of Encounter: 11/28/16 Time of Encounter: 10:45 - Assessment and plan (1) Dehydration Current Visit: Yes Status: Resolved Assessment and plan: Secondary to persistent emesis. Improving. Still nauseous. Hyponatremia getting better. (2) Hyponatremia Current Visit: Yes Status: Acute Assessment and plan: Patient has recurrent episodes of acute hyponatremia, due to nausea and vomiting. Serum sodium improved, at 135 today. Continue to monitor. encourage oral hydration. No vomiting but continues to have nausea and dry heaves; Case d/w Dr.Pierre Lopez, bariatric surgeon at [facility], who agrees there is no need for urgent surgical intervention at this time, and no indication for inpatient transfer; awaiting insurance approval for outpatient gastric stimulator replacement by him. D/W patient pssible dicharge tomoow if stable. D/W family independence case manager and nursing staff. (3) Gastroparesis Current Visit: Yes Status: Chronic Assessment and plan: continue current management; d/w , patient's surgeon, plan as above. (4) DVT prophylaxis Current Visit: No Status: Acute Assessment and plan: lovenox sq. - Subjective Interval history: The patient was seen and examined during rounds. She is still feeling nauseous, denies vomiting. No fever. - Constitutional Vitals: Temp Pulse Resp BP Pulse Ox 97.5 F L 60 16 124/76 93 11/28/16 08:31 11/28/16 08:31 11/28/16 08:31 11/28/16 08:31 11/28/16 08:31 General appearance: Present: A&O X 3, answers questions appropriately - Head Head exam: Present: atraumatic, normocephalic - Eye Eye exam: Present: PERRL, conjuntiva pink, sclera anicteric Pupils: Present: PERRL - Neck Neck exam general surgery: Present: supple, trachea midline. Absent: lymphadenopathy - Respiratory Respiratory exam: Present: CTAB. Absent: accessory muscle use, rales, rhonchi, wheezes - Cardiovascular Cardiovascular exam: Present: RRR, +S1, +S2. Absent: diastolic murmur, gallop, rubs, systolic murmur - GI/Abdominal GI/Abdominal exam: Present: normal bowel sounds, soft, no peritoneal signs. Absent: distended, tenderness - Extremities Exam Extremities exam: Present: warm, radial pulses palpable and symetrical. Absent : calf tenderness, cyanotic, pedal edema - Neurological Exam Neurological exam: Present: CN II-XII intact, oriented X3, no focal deficits. Absent: pronater drift, facial droop, speech deficit - Skin Skin exam: Present: dry, intact Internal Medicine: Result - Labs CBC & Chem 7: 11/24/16 04:41 11/28/16 05:07 Labs: BMP 11/28/16 05:07 Sodium 135 L Potassium 4.1 Chloride 99 Carbon Dioxide 29 BUN 8 Creatinine 0.70 Glucose 97 Calcium 9.1 - ABG Interpretation ABG results: PT/INR, D-dimer PT 10.8 Seconds (9.4-12.1) 11/23/16 17:34 Consult Discharge Plan - Plan Referrals: Wilton Marcum MD [Primary Care Provider] - (OFFICE WOULD NOT SCHEDULE AT THIS TIME. WAS TOLD TO CALL BACK WHEN PATIENT IS DISCHARGED)
[2016-11-28] MEDS: CarBAMazepine XR (12 hr) 100 MG TAB PO SCH (20:29)
[2016-11-28] MEDS: rOPINIRole 1 MG TABLET PO SCH (20:29)
[2016-11-28] MEDS: clonazePAM 1 MG TABLET PO SCH (20:30)
[2016-11-28] MEDS ORDERED: Pantoprazole 40 MG VIAL IVP ONE (20:55)
[2016-11-29] MEDS: *HR* Promethazine 25 MG/ML VIAL IVP PRN ×3 (00:28→11:51)
[2016-11-29] MEDS: *HR* OxyCODONE/APAP 5/325 TABLET PO PRN (02:52)
[2016-11-29] MEDS: Ondansetron 4 MG/2 ML VIAL IVP PRN ×2 (02:53→09:04)
[2016-11-29 05:14] LABS: BUN/Creatinine Ratio 17 (6-26); Blood Urea Nitrogen 12 mg/dL (7-20); Calcium 8.9 mg/dL (8.6-10.8); Carbon Dioxide 28 mEq/L (19-29); Chloride 98 mEq/L (98-109); Glucose 126 mg/dL (70-99); Osmolality,Calculated 279 (280-300); Potassium 3.6 mEq/L (3.5-4.5); Sodium 134 mEq/L (136-145); eGFR For African Americans > 60 (> 60); eGFR For Non-African Americans > 60 (> 60)
[2016-11-29] MEDS: *HR* Enoxaparin 40 MG/0.4 ML SYRINGE SQ SCH (06:36)
--- NOTE | 2016-11-29 08:59 | Discharge Summary ---
Date of Encounter: 11/29/16 Time of Encounter: 08:57 - Discharge Diagnosis (1) Dehydration Priority: Primary Status: Resolved (2) Hyponatremia Priority: Secondary Status: Acute (3) Gastroparesis Priority: Secondary Status: Chronic (4) DVT prophylaxis Priority: Secondary Status: Acute - Discharge Medications Home Medications: Amitriptyline [Elavil] 10 mg PO DAILY 11/15/16 [History] Amlodipine Besylate 10 mg PO DAILY 11/15/16 [History] Atorvastatin Calcium [Lipitor] 20 mg PO HS 11/15/16 [History] CarBAMazepine [Tegretol Xr] 400 mg PO HS 11/15/16 [History] Chlorthalidone 25 mg PO DAILY 11/15/16 [History] ClonazePAM [Klonopin] 4 mg PO HS 11/15/16 [History] Dronabinol [Marinol] 5 - 10 mg PO BID PRN 11/15/16 [History] Escitalopram [Lexapro] 20 mg PO DAILY 11/15/16 [History] HydrOXYzine Pamoate [Vistaril] 50 mg PO BID PRN 11/15/16 [History] Loratadine [Claritin] 10 mg PO DAILY 11/15/16 [History] Modafinil [Provigil] 200 mg PO BID 11/15/16 [History] Ondansetron [Zofran ODT] 8 mg SL TID PRN 11/15/16 [History] Oxycodone HCl/Acetaminophen [Percocet 5-325 mg Tablet] 1 each PO BID PRN [History] Pantoprazole Sodium [Protonix] 40 mg PO BID 11/15/16 [History] Quetiapine Fumarate [Seroquel] 200 mg PO HS 11/15/16 [History] Ropinirole [Requip] 2 mg PO HS 11/15/16 [History] Sertraline [Zoloft] 50 mg PO DAILY 11/15/16 [History] Allergies/Adverse Reactions: Allergies prochlorperazine Allergy (Verified 11/23/16 18:12) Anaphylaxis acetaminophen [From Vicodin] Adverse Reaction (Verified 11/23/16 18:12) Nausea hydrochlorothiazide Adverse Reaction (Verified 11/23/16 18:12) Rash hydrocodone [From Vicodin] Adverse Reaction (Verified 11/23/16 18:12) Nausea Hydromorphone [From Dilaudid] Adverse Reaction (Verified 11/23/16 18:12) Nausea metoclopramide [From Reglan] Adverse Reaction (Verified 11/23/16 18:12) See Comments shakey promethazine [From Phenergan] Adverse Reaction (Verified 11/23/16 18:12) See Comments restless legs Date of admission: 11/23/16 18:52 Primary care physician: Wilton Marcum MD Discharging clinician: Ankush Sheikh Anticipated date of discharge: 11/29/16 - Patient Status Disposition: Home, Self-Care Condition: Good Functional capacity at discharge: independent ambulation Overall status at discharge: patient is back to baseline - Discharge Instructions Follow Up With: Wilton Marcum MD [Primary Care Provider] - (OFFICE WOULD NOT SCHEDULE AT THIS TIME. WAS TOLD TO CALL BACK WHEN PATIENT IS DISCHARGED) - Diet and Activity Activity: increase activity as tolerated Diet: advance to your usual diet Interval History: Ms. Carrasco is a 66 year old female, PMH gastroparesis requiring stimulator, depression, HTN, admitted for hyponatremia, N/V. Patient admitted last week for same problem. Since that time, patient has seen the surgeon who implanted gastric stimulator, Dr. Axel Lopez. She was told her battery has and there are plans to have a gastrectomy. Gastroparesis started randomly after [place] ation in 2004. started getting N/V, seen by doctor and diagnosed. She does not have diabetes. After visit with surgeon, patient began to have N/V, worsen with eating. Muscle cramps began shortly after and are diffused throughout body.She admits to mild diarrhea that started today and a headache. Diarrhea Not bloody. She denies Blurry vision, CP, SOB, FND, abdominal pain, urinary complaints, parasthesias/numbness in hands and feet. Hospital course: Ms. Carrasco is a 66 year old female Hyponatremia improved, likely was due to dehydration and SSRIs. Patient was diagnosed with unexplained gastroparesis almost 10 years back and she received a gastric stimulator, which has been replaced once so far. She reports that stimulator battery ran out recently. She does follow with gastroenterology and bariatric surgery at [facility] for this. I have discussed with Dr. Jacob Alexandre, patient's mortgage manager at [facility], who recommends continuing symptomatic and supportive treatment at this time, she has an appointment tomorrow at [facility] with he surgeon for further management. he has not vmited but is naseous. Will dischage he home today. - Time Spent with Patient Total time spent providing and/or coordinating discharge services: - Constitutional Vitals: Temp Pulse Resp BP Pulse Ox 97.8 F 60 16 143/85 96 11/29/16 06:47 11/29/16 06:47 11/29/16 06:47 11/29/16 06:47 11/29/16 06:47 General appearance: Present: A&O X 3, answers questions appropriately - Head Head exam: Present: atraumatic, normocephalic - Eye Eye exam: Present: PERRL, conjuntiva pink, sclera anicteric Pupils: Present: PERRL - Neck Neck exam general surgery: Present: supple, trachea midline. Absent: lymphadenopathy - Respiratory Respiratory exam: Present: CTAB. Absent: accessory muscle use, rales, rhonchi, wheezes - Cardiovascular Cardiovascular exam: Present: RRR, +S1, +S2. Absent: diastolic murmur, gallop, rubs, systolic murmur - GI/Abdominal GI/Abdominal exam: Present: normal bowel sounds, soft, no peritoneal signs. Absent: distended, tenderness - Extremities Exam Extremities exam: Present: warm, radial pulses palpable and symetrical. Absent : calf tenderness, cyanotic, pedal edema - Neurological Exam Neurological exam: Present: CN II-XII intact, oriented X3, no focal deficits. Absent: pronater drift, facial droop, speech deficit - Skin Skin exam: Present: dry, intact
[2016-11-29] MEDS: amLODIPine 5 MG TABLET PO SCH (09:04)
[2016-11-29 10:43] VITALS: BP 126/81
== END 2016-11-29 12:15 | disposition home or self-care (01) ==
LOC: 2ANU 16:20 → EMEROO 16:20 → SUATTDRO 18:52 → 2ANU 19:47
PROVIDERS: ADMIT Hospitalist; ATTEND Internal Medicine

== ENCOUNTER 2018-02-24 09:26 | Observation (INO) ==
[2018-02-24] MEDS ORDERED: Aspirin 81 MG TAB.CHEW PO ONE (09:31)
--- NOTE | 2018-02-24 10:08 | Emergency Department Note ---
Disposition Clinical Impression: Chest pain Disposition: Admitted As Inpatient Condition: Fair Referrals: Wilton Marcum MD [Primary Care Provider] - Forms: ED Satisfaction Letter Time of Disposition: 11:26 General Adult HPI - General Chief complaint: ED Chest Pain Stated complaint: CP x1day Time Seen by Provider: 02/24/18 09:31 - History of Present Illness Pain Scale: 7 - Related Data Home Medications Medication Instructions Recorded Confirmed Amitriptyline [Elavil] 10 mg PO DAILY 11/15/16 11/23/16 Amlodipine Besylate 10 mg PO DAILY 11/15/16 11/23/16 Atorvastatin Calcium [Lipitor] 20 mg PO HS 11/15/16 11/23/16 Chlorthalidone 25 mg PO DAILY 11/15/16 11/23/16 Dronabinol [Marinol] 5 - 10 mg PO BID PRN 11/15/16 11/23/16 Escitalopram [Lexapro] 20 mg PO DAILY 11/15/16 11/23/16 HydrOXYzine Pamoate [Vistaril] 50 mg PO BID PRN 11/15/16 11/23/16 Loratadine [Claritin] 10 mg PO DAILY 11/15/16 11/23/16 Modafinil [Provigil] 200 mg PO BID 11/15/16 11/23/16 Pantoprazole Sodium [Protonix] 40 mg PO BID 11/15/16 11/23/16 Quetiapine Fumarate [Seroquel] 200 mg PO HS 11/15/16 11/23/16 Sertraline [Zoloft] 50 mg PO DAILY 11/15/16 11/23/16 carBAMazepine [Tegretol Xr] 400 mg PO HS 11/15/16 11/23/16 clonazePAM [Klonopin] 4 mg PO HS 11/15/16 11/23/16 rOPINIRole [Requip] 2 mg PO HS 11/15/16 11/23/16 Previous Rx's Medication Instructions Recorded DiphenhydraMINE [Benadryl] 25 mg PO Q6HR #30 capsule 12/30/16 Potassium Chloride 40 meq PO DAILY #8 tab.er.prt 12/30/16 Hyoscyamine SL [Levsin SL] 0.125 mg SL TID #21 tab.subl 01/01/17 Allergies Allergy/AdvReac Type Severity Reaction Status Date / Time prochlorperazine Allergy Anaphylaxis Verified 11/23/16 18:12 acetaminophen [From Vicodin] AdvReac Nausea Verified 11/23/16 18:12 hydrochlorothiazide AdvReac Rash Verified 11/23/16 18:12 hydrocodone [From Vicodin] AdvReac Nausea Verified 11/23/16 18:12 Hydromorphone [From Dilaudid] AdvReac Nausea Verified 11/23/16 18:12 metoclopramide [From Reglan] AdvReac See Verified 11/23/16 18:12 Comments promethazine [From Phenergan] AdvReac See Verified 11/23/16 18:12 Comments Past Medical History - Past Medical History Medical history: Reports: asthma, hyperlipidemia, hypertension, other Surgical history: Reports: breast surgery, cholecystectomy, hysterectomy, knee replacement (left), other (right breast lumpectomy, carpal tunnel release) Psychiatric history: Reports: depression - Social History Smoking Status: Never smoker Smokeless Tobacco Status: No Alcohol use: Reports: none Drug use: Reports: none Course Vital Signs Temperature 98.5 F 02/24/18 09:28 Pulse Rate 64 02/24/18 09:28 Respiratory Rate 16 02/24/18 09:28 Blood Pressure 145/82 02/24/18 09:28 O2 Sat by Pulse Oximetry 99 02/24/18 09:28 Temperature 98.5 F 02/24/18 09:28 Pulse Rate 52 02/24/18 10:43 Respiratory Rate 16 02/24/18 10:43 Blood Pressure 127/85 02/24/18 10:43 O2 Sat by Pulse Oximetry 95 02/24/18 10:43 Oxygen Delivery Oxygen Delivery Room Air Medical Decision Making - Lab Data Result diagrams: 02/24/18 10:24 02/24/18 09:52 Lab Results 02/24/18 02/24/18 02/24/18 Range/Units 09:52 10:05 10:24 WBC 4.8 (4.3-11.1) K/mcL RBC 4.50 (3.82-4.97) M/mcL Hgb 13.7 (11.5-15.4) g/dL Hct 40.3 (35.3-44.9) % MCV 89.6 (83.0-100.0) fL MCH 30.4 (28.0-33.3) pg MCHC 34.0 (31.6-35.5) g/dL RDW 14.6 H (11.5-14.5) % Plt Count 199 (140-400) K/mcL MPV 10.3 (9.4-12.4) fL Immature Gran % 0.4 (0-4) % Seg Neutrophils % 52.3 % Lymphocytes % 35.2 % Monocytes % 9.4 % Eosinophils % 2.1 % Basophils % 0.6 % Neutrophils # 2.5 (1.6-8.9) K/mcL Lymphocytes # 1.7 (0.6-4.6) K/mcL Monocytes # 0.5 (0.0-1.3) K/mcL Eosinophils # 0.1 (0.0-0.6) K/mcL Basophils # 0.0 (0.0-0.2) K/mcL Sodium 136 (136-145) mEq/L Potassium 4.9 (3.5-5.1) mEq/L Chloride 103 (98-107) mEq/L Carbon Dioxide 27 (23-29) mEq/L BUN 17 (8-23) mg/dL Creatinine 0.53 L (0.60-1.20) mg/dL Est GFR ( Amer) > 60 (> 60) Est GFR (Non-Af Amer) > 60 (> 60) BUN/Creatinine Ratio 32 H (6-26) Glucose 90 (70-105) mg/dL Calculated Osmolality 283 (280-300) Calcium 9.1 (8.6-10.3) mg/dL Phosphorus 3.9 (2.7-4.5) mg/dL Magnesium 2.0 (1.6-2.6) mg/dL Troponin I < 0.03 (< 0.04) ng/mL Specimen Rejected Clotted Attestation Statement - Attestation Attestation: I, Nathan Cano DO, examined this patient [id number] and my medical decision-making was reviewed with Dr. India Camp, Resident Physician. I agree with the documented findings, disposition and treatment plan as described except to the extent set forth below. Please see my progress notes for details. 67-year-old female presents to emergency room with complaint of left-sided anterior chest pain. Patient said the symptoms on and off for greater than a month. Yesterday the symptoms came on again and they have not gone away. Patient denies any trauma or injury. She has had intermittent chest discomfort. Denies any exertional symptoms. Denies any fevers or chills nausea vomiting or diarrhea headache or vision change. She does have a history of persistent intermittent nausea and vomiting secondary to a Ellen-en-Y procedure that was performed in March. Patient has not had any issues are followed up with her clerk stenographer or surgical provider since then. Patient did have complications of the feeding tube after the initial surgery but no issues since then. Currently she is describing left-sided anterior chest wall discomfort that is persistent at this point in does get worse when she takes a deep breath or moves her left arm entirely across her chest. On physical exam her vital signs are stable her heart is regular her lungs are clear she does have reproducible tenderness over the sixth and seventh rib anteriorly over the lateral margin-no rash trauma or injury noted. Patient surgical incision the abdomen appears to be stable with no hernias noted she has no pain with palpation the left upper left lower right upper right lower quadrant she has no midepigastric discomfort or pain. She denies any emesis vomiting or diarrhea. Patient will be treated symptomatically for cardiac related etiology she will be given an aspirin and her pain will be controlled. Chest x-ray EKG CBC chemistry troponin along with electrolytes will be added on and BNP. Patient's symptoms have the potential of being musculoskeletal in nature without a inciting incident. She is concerning for cardiac related etiology considering her history. Patient has had an echo and stress test performed approximately 2 years ago for similar issues but did not have any acute findings of the time and has not followed up. Patient will be evaluated and symptomatic control be established. Disposition will be determined once full workup and treatment course are completed. See detailed documentation the physical exam, medical intervention, medical decision-making and disposition the resident physician's note. Patient's heart score is approximately a 3. Patient's well's criteria for pulmonary emboli is also low risk at this point and she does not require any acute intervention is suspicion is low for pulmonary emboli. Main concern is muscular skeletal versus cardiac related etiology at this time. Patient denies a history of smoking or pulmonary disease. 1045 Patient's troponin labs unremarkable this time. She has had no change in the symptoms of this point. She has not required acute medical intervention. Initial EKG is unremarkable and chest x-ray stable. Patient will be admitted for cardiac observation repeat evaluation by cardiology. Pulses symptoms do appear to be secondary to chest wall discomfort. Pain medication will be ordered by oral intake and admission process to be established. 1125 Patient was discussed with the hospitalist Dr. Carmen. Review the presentation symptoms. Patient does not have any significant risk factors this point because of age no previous cardiac history as well as the persistence of the symptoms here today that required pain medication and detailed workup the patient will be admitted for observation most likely discharge home after reevaluation cardiac symptomatic control. Patient otherwise clinically stable and the pain has resolved here in the emergency room since being provided pain medication. No other acute concerns or issues noted this time vital signs remained stable. Admission processes has been established
--- NOTE | 2018-02-24 10:08 | Emergency Department Note ---
Disposition Clinical Impression: Chest pain Qualifiers: Chest pain type: unspecified Qualified Code(s): R07.9 - Chest pain, unspecified Disposition: Admitted As Inpatient Condition: Good Referrals: Wilton Marcum MD [Primary Care Provider] - Forms: ED Satisfaction Letter Time of Disposition: 11:32 General Adult HPI - General Chief complaint: ED Chest Pain Stated complaint: CP x1day Time Seen by Provider: 02/24/18 09:31 Source: patient, family Mode of arrival: ambulatory Limitations: no limitations Nursing Notes Reviewed: Yes Vital Signs Reviewed: Yes - History of Present Illness HPI Narrative: 67-year-old female with significant past medical history of gastroparesis with gastric sleeve fixture presenting to the emergency department with chief complaint of chest pain. Patient states for the past 1 month patient has had intermittent substernal chest pain. Denies diaphoresis, nausea or vomiting with these symptoms. Not related to exertion. Patient states yesterday morning she started having substernal chest pain has been constant since. Does not radiate outside of her chest. Patient denies taking any medications for this at home. States she had a cardiac workup approximately 2-3 years ago which was benign. Otherwise has never followed up with a physical therapy attendant. Pain Scale: 7 - Related Data Home Medications Medication Instructions Recorded Confirmed Escitalopram [Lexapro] 40 mg PO DAILY 11/15/16 02/24/18 Pantoprazole Sodium [Protonix] 40 mg PO BID 11/15/16 02/24/18 clonazePAM [Klonopin] 2 mg PO HS 11/15/16 02/24/18 rOPINIRole [Requip] 2 mg PO HS 11/15/16 02/24/18 CarBAMazepine [Carbamazepine ER] 400 mg PO HS 02/24/18 02/24/18 Ondansetron ODT [Zofran ODT] 4 mg PO DAILY PRN 02/24/18 02/24/18 Quetiapine Fumarate [SEROquel] 200 mg PO HS 02/24/18 02/24/18 Allergies Allergy/AdvReac Type Severity Reaction Status Date / Time prochlorperazine Allergy Anaphylaxis Verified 02/24/18 10:55 acetaminophen [From Vicodin] AdvReac Nausea Verified 02/24/18 10:55 hydrochlorothiazide AdvReac Rash Verified 02/24/18 10:55 hydrocodone [From Vicodin] AdvReac Nausea Verified 02/24/18 10:55 Hydromorphone [From Dilaudid] AdvReac Nausea Verified 02/24/18 10:55 metoclopramide [From Reglan] AdvReac See Verified 02/24/18 10:55 Comments promethazine [From Phenergan] AdvReac See Verified 02/24/18 10:55 Comments All systems ED: reviewed and negative except as stated. Constitutional: Denies: fever, chills Eyes: Reports: as per HPI ENT ED: Reports: as per HPI Cardiovascular: Reports: chest pain. Denies: palpitations, dyspnea on exertion Respiratory: Denies: cough, dyspnea, wheezes Gastrointestinal: Reports: as per HPI Genitourinary: Reports: as per HPI Musculoskeletal: Denies: back pain, neck pain Integumentary: Denies: rash, abrasion Neurological: Denies: weakness, numbness, paresthesias Psychiatric: Reports: as per HPI Endocrine: Reports: as per HPI Hematological/Lymphatic: Reports: as per HPI Allergic/Immunologic: Reports: as per HPI Past Medical History - Past Medical History Attestation: Yes The following information was validated with the patient. Medical history: Reports: asthma, hyperlipidemia, hypertension, other Surgical history: Reports: breast surgery, cholecystectomy, hysterectomy, knee replacement (left), other (right breast lumpectomy, carpal tunnel release) Psychiatric history: Reports: depression - Social History Smoking Status: Never smoker Smokeless Tobacco Status: No Alcohol use: Reports: none Drug use: Reports: none Physical Exam - General Limitations: no limitations General appearance: alert, in no apparent distress - Head Head exam: atraumatic, normocephalic, normal inspection - Eye Eye exam: Present: normal appearance. Absent: scleral icterus, conjunctival injection - ENT ENT exam: normal exam, mucous membranes moist - Neck Neck exam: Present: normal inspection, full ROM. Absent: tenderness, meningismus - Chest Chest inspection: Present: normal inspection, symmetric chest wall rise. Absent : tenderness, rash - Respiratory Respiratory exam: Present: normal lung sounds bilaterally. Absent: respiratory distress, wheezes - Cardiovascular Cardiovascular exam: Present: regular rate, normal rhythm, normal heart sounds - Abdominal Exam Abdominal exam: Present: soft, Non-Tender. Absent: distention, guarding, rebound - Extremities Exam Extremities exam: Present: normal inspection, full ROM - Neurological Exam Neurological exam: Present: alert, oriented X3 - Psychiatric Psychiatric exam: Present: normal affect, normal mood - Skin Skin exam: Present: warm, intact Course Course Narrative: 67 year old female presenting for chest pain. Patient is alert and oriented x 3 in the room with stable vital signs. Patient had a cardiac workup approximately 2 years ago but otherwise is. We will perform chest pain workup including EKG, troponin, chest x-ray. Due to patient's gastric sleeve we will also perform magnesium and phosphorus level. Disposition pending. Patient agrees with this plan. - Reevaluation(s) Reevaluation #1: Patient's laboratory analysis resulted within normal limits. Patient given fentanyl for continued chest pain with moderate relief. Patient is alert and oriented x 3 in the room with stable vital signs. At this time we will admit the patient for chest pain rule out. I spoke with the hospitalist ged preparation teacher Dr. Carmen who agrees to accept the patient at this time. Patient agrees with this plan. Vital Signs Temperature 98.5 F 02/24/18 09:28 Pulse Rate 64 02/24/18 09:28 Respiratory Rate 16 02/24/18 09:28 Blood Pressure 145/82 02/24/18 09:28 O2 Sat by Pulse Oximetry 99 02/24/18 09:28 Temperature 98.5 F 02/24/18 09:28 Pulse Rate 52 02/24/18 10:43 Respiratory Rate 16 02/24/18 10:43 Blood Pressure 127/85 02/24/18 10:43 O2 Sat by Pulse Oximetry 95 02/24/18 10:43 Oxygen Delivery Oxygen Delivery Room Air Medical Decision Making - Lab Data Result diagrams: 02/24/18 10:24 02/24/18 09:52 Lab Results 02/24/18 02/24/18 02/24/18 Range/Units 09:52 10:05 10:24 WBC 4.8 (4.3-11.1) K/mcL RBC 4.50 (3.82-4.97) M/mcL Hgb 13.7 (11.5-15.4) g/dL Hct 40.3 (35.3-44.9) % MCV 89.6 (83.0-100.0) fL MCH 30.4 (28.0-33.3) pg MCHC 34.0 (31.6-35.5) g/dL RDW 14.6 H (11.5-14.5) % Plt Count 199 (140-400) K/mcL MPV 10.3 (9.4-12.4) fL Immature Gran % 0.4 (0-4) % Seg Neutrophils % 52.3 % Lymphocytes % 35.2 % Monocytes % 9.4 % Eosinophils % 2.1 % Basophils % 0.6 % Neutrophils # 2.5 (1.6-8.9) K/mcL Lymphocytes # 1.7 (0.6-4.6) K/mcL Monocytes # 0.5 (0.0-1.3) K/mcL Eosinophils # 0.1 (0.0-0.6) K/mcL Basophils # 0.0 (0.0-0.2) K/mcL Sodium 136 (136-145) mEq/L Potassium 4.9 (3.5-5.1) mEq/L Chloride 103 (98-107) mEq/L Carbon Dioxide 27 (23-29) mEq/L BUN 17 (8-23) mg/dL Creatinine 0.53 L (0.60-1.20) mg/dL Est GFR ( Amer) > 60 (> 60) Est GFR (Non-Af Amer) > 60 (> 60) BUN/Creatinine Ratio 32 H (6-26) Glucose 90 (70-105) mg/dL Calculated Osmolality 283 (280-300) Calcium 9.1 (8.6-10.3) mg/dL Phosphorus 3.9 (2.7-4.5) mg/dL Magnesium 2.0 (1.6-2.6) mg/dL Troponin I < 0.03 (< 0.04) ng/mL B-Natriuretic Peptide (Less than 100) pg/mL Specimen Rejected Clotted 02/24/18 Range/Units 10:24 WBC (4.3-11.1) K/mcL RBC (3.82-4.97) M/mcL Hgb (11.5-15.4) g/dL Hct (35.3-44.9) % MCV (83.0-100.0) fL MCH (28.0-33.3) pg MCHC (31.6-35.5) g/dL RDW (11.5-14.5) % Plt Count (140-400) K/mcL MPV (9.4-12.4) fL Immature Gran % (0-4) % Seg Neutrophils % % Lymphocytes % % Monocytes % % Eosinophils % % Basophils % % Neutrophils # (1.6-8.9) K/mcL Lymphocytes # (0.6-4.6) K/mcL Monocytes # (0.0-1.3) K/mcL Eosinophils # (0.0-0.6) K/mcL Basophils # (0.0-0.2) K/mcL Sodium (136-145) mEq/L Potassium (3.5-5.1) mEq/L Chloride (98-107) mEq/L Carbon Dioxide (23-29) mEq/L BUN (8-23) mg/dL Creatinine (0.60-1.20) mg/dL Est GFR ( Amer) (> 60) Est GFR (Non-Af Amer) (> 60) BUN/Creatinine Ratio (6-26) Glucose (70-105) mg/dL Calculated Osmolality (280-300) Calcium (8.6-10.3) mg/dL Phosphorus (2.7-4.5) mg/dL Magnesium (1.6-2.6) mg/dL Troponin I (< 0.04) ng/mL B-Natriuretic Peptide 118 H (Less than 100) pg/mL Specimen Rejected - EKG Data EKG #1 EKG attestation: Yes I reviewed and interpreted this EKG. EKG results narrative: Sinus bradycardia. 57 bpm. [place] interval 166, QRS 86, QTc 420. No signs of acute ST segment elevation or ischemia. Compared to previous EKG completed on 11/23/2016 no significant changes noted. Attestation Statement - Attestation Attestation: I, Nathan Cano DO, examined this patient [id number] and my medical decision-making was reviewed with Dr. India Camp, Resident Physician. I agree with the documented findings, disposition and treatment plan as described except to the extent set forth below. Please see my progress notes for details.
[2018-02-24 10:27] LABS: BUN/Creatinine Ratio 32 (6-26); Blood Urea Nitrogen 17 mg/dL (8-23); Calcium 9.1 mg/dL (8.6-10.3); Carbon Dioxide 27 mEq/L (23-29); Chloride 103 mEq/L (98-107); Glucose 90 mg/dL (70-105); Osmolality,Calculated 283 (280-300); Phosphorous 3.9 mg/dL (2.7-4.5); Potassium 4.9 mEq/L (3.5-5.1); Sodium 136 mEq/L (136-145); Troponin I < 0.03 ng/mL (< 0.04); eGFR For Non-African Americans > 60 (> 60)
[2018-02-24 10:39] LABS: Basophils % 0.6 %; Eosinophils # 0.1 K/mcL (0.0-0.6); Eosinophils % 2.1 %; Hematocrit 40.3 % (35.3-44.9); Hemoglobin 13.7 g/dL (11.5-15.4); Immature Granulocytes % 0.4 % (0-4); Lymphocytes # 1.7 K/mcL (0.6-4.6); Lymphocytes % 35.2 %; Mean Corpuscular Hemoglobin 30.4 pg (28.0-33.3); Mean Corpuscular Volume 89.6 fL (83.0-100.0); Mean Platelet Volume 10.3 fL (9.4-12.4); Monocytes # 0.5 K/mcL (0.0-1.3); Monocytes % 9.4 %; Neutrophils # 2.5 K/mcL (1.6-8.9); Platelet Count 199 K/mcL (140-400); Red Cell Distribution Width 14.6 % (11.5-14.5); Segmented Neutrophils % 52.3 %
[2018-02-24] MEDS ORDERED: *HR* FentaNYL (PF) 100 MCG/2 ML VIAL IVP ONE (10:42)
[2018-02-24] MEDS ORDERED: Nitroglycerin 0.4 MG TAB.SUBL SL PRN (11:46)
--- NOTE | 2018-02-24 12:19 | Internal Med History&Physical ---
Date of Encounter: 02/24/18 Time of Encounter: 11:00 Internal Medicine - H&P: HPI Chief complaint: Chest pain Admitted From: Home Plans for Post Hospital Care: Home History of present illness: Patient is a 67-year-old female with past medical history significant for Ellen- en-Y in March 2017 and hypertension who presents to the ER on 02/24/18 with chest pain. Patient reports a one-day onset of substernal chest pain which she describes as deep pressure which is constant with moving making discomfort worse and being still giving some relief. Patient denies any other associated symptoms other than being fatigued. Patient was concerned and decided to come to the ER for evaluation. In the ER, patients first cardiac troponin was negative. Patient will be admitted to the medical surgical floor for ACS rule out. Past Med Surg Social Fam HX - Past Medical History Medical history: asthma, hyperlipidemia, hypertension, other Additional medical history: gastroparesis Psychiatric history: depression - Past Surgical History Surgical History: breast surgery, cholecystectomy, hysterectomy, knee replacement (left), other (right breast lumpectomy, carpal tunnel release) Additional surgical history: carpal release, 3x sinus sx - Social History Smoking Status: Never smoker Smokeless Tobacco Status: No Alcohol use: none Drug use: none - Family History Mother Hx Family Cancer: Yes (BREAST CA) Hx Family Endocrine Disorder: Yes (DM) Internal Medicine - H&P: Meds Escitalopram [Lexapro] 40 mg PO DAILY 11/15/16 [History] Pantoprazole Sodium [Protonix] 40 mg PO BID 11/15/16 [History] clonazePAM [Klonopin] 2 mg PO HS 11/15/16 [History] rOPINIRole [Requip] 2 mg PO HS 11/15/16 [History] CarBAMazepine [Carbamazepine ER] 400 mg PO HS 02/24/18 [History] Ondansetron ODT [Zofran ODT] 4 mg PO DAILY PRN 02/24/18 [History] Quetiapine Fumarate [SEROquel] 200 mg PO HS 02/24/18 [History] 3 Allergy/AdvReac Type Severity Reaction Status Date / Time prochlorperazine Allergy Anaphylaxis Verified 02/24/18 10:55 acetaminophen [From Vicodin] AdvReac Nausea Verified 02/24/18 10:55 hydrochlorothiazide AdvReac Rash Verified 02/24/18 10:55 hydrocodone [From Vicodin] AdvReac Nausea Verified 02/24/18 10:55 Hydromorphone [From Dilaudid] AdvReac Nausea Verified 02/24/18 10:55 metoclopramide [From Reglan] AdvReac See Verified 02/24/18 10:55 Comments promethazine [From Phenergan] AdvReac See Verified 02/24/18 10:55 Comments All Systems PM: A 10-system review of systems was performed and is negative for pertinent findings except as documented above in the HPI. - Constitutional Vitals: Temp Pulse Resp BP Pulse Ox 98.5 F 51 22 152/88 94 02/24/18 09:28 02/24/18 11:35 02/24/18 11:35 02/24/18 11:35 02/24/18 11:35 General appearance: Present: A&O X 3, no acute distress - Eye Eye exam: Present: normal appearance - ENT ENT exam: Present: mucous membranes moist - Respiratory Respiratory exam: Present: CTAB. Absent: accessory muscle use, rales, rhonchi, wheezes - Cardiovascular Cardiovascular exam: Present: RRR, +S1, +S2. Absent: diastolic murmur, gallop, rubs, systolic murmur - GI/Abdominal GI/Abdominal exam: Present: normal bowel sounds, soft, no peritoneal signs. Absent: distended, tenderness - Extremities Exam Extremities exam: Absent: pedal edema - Neurological Exam Neurological exam: Present: oriented X3 - Psychiatric Psychiatric exam: Present: normal mood - Skin Skin exam: Present: normal color Internal Med - H&P Results - Labs CBC & Chem 7: 02/24/18 10:24 02/24/18 09:52 - Assessment and plan (1) Chest pain Current Visit: Yes Status: Acute Assessment and plan: Patient's first set of troponins negative. Will trend serial troponins and monitor on telemetry. Recommendations for nuclear medicine stress tests if troponins negative. Qualifiers: Chest pain type: unspecified Qualified Code(s): R07.9 - Chest pain, unspecified (2) HTN (hypertension) Current Visit: No Status: Chronic Assessment and plan: Continue home medications Qualifiers: Hypertension type: essential hypertension Qualified Code(s): I10 - Essential (primary) hypertension (3) Depression Current Visit: No Status: Chronic Assessment and plan: Continue home medications Qualifiers: Depression Type: unspecified Qualified Code(s): F32.9 - Major depressive disorder, single episode, unspecified (4) DVT prophylaxis Current Visit: No Status: Acute Assessment and plan: Subcutaneous heparin - Time Spent With Patient Total time spent is greater than 50% in coordination of care (as documented) at patient's floor/unit and/or counseling patient:
[2018-02-24] MEDS ORDERED: Naloxone 0.4 MG/ML INJ IVP PRN (12:25)
[2018-02-24] MEDS: *HR* Heparin 5,000 UNIT/ML VIAL SQ SCH ×2 (13:13→21:35)
[2018-02-24] MEDS: Ketorolac 30 MG/ML VIAL IVP PRN ×2 (14:35→21:35)
[2018-02-24] MEDS ORDERED: Melatonin 3 MG TABLET PO PRN (20:44)
[2018-02-25 00:53] LABS: Basophils % 0.7 %; Eosinophils # 0.2 K/mcL (0.0-0.6); Eosinophils % 3.2 %; Hematocrit 38.3 % (35.3-44.9); Hemoglobin 12.7 g/dL (11.5-15.4); Immature Granulocytes % 0.2 % (0-4); Lymphocytes # 2.5 K/mcL (0.6-4.6); Lymphocytes % 43.8 %; Mean Corpuscular HGB Conc 33.2 g/dL (31.6-35.5); Mean Corpuscular Hemoglobin 29.5 pg (28.0-33.3); Mean Corpuscular Volume 89.1 fL (83.0-100.0); Mean Platelet Volume 10.5 fL (9.4-12.4); Monocytes # 0.6 K/mcL (0.0-1.3); Monocytes % 9.6 %; Neutrophils # 2.4 K/mcL (1.6-8.9); Platelet Count 210 K/mcL (140-400); Red Cell Distribution Width 14.9 % (11.5-14.5); Segmented Neutrophils % 42.5 %
[2018-02-25 01:10] LABS: BUN/Creatinine Ratio 35 (6-26); Blood Urea Nitrogen 22 mg/dL (8-23); Calcium 8.9 mg/dL (8.6-10.3); Carbon Dioxide 28 mEq/L (23-29); Chloride 104 mEq/L (98-107); Glucose 102 mg/dL (70-105); Osmolality,Calculated 286 (280-300); Sodium 136 mEq/L (136-145); eGFR For Non-African Americans > 60 (> 60)
[2018-02-25] MEDS: Ketorolac 30 MG/ML VIAL IVP PRN (03:58)
[2018-02-25] MEDS: *HR* Heparin 5,000 UNIT/ML VIAL SQ SCH ×3 (05:39→20:55)
[2018-02-25] MEDS ORDERED: Regadenoson 0.4 MG/5 ML SYRINGE IVP ONE (08:03)
--- NOTE | 2018-02-25 09:15 | Electrocardiograph Report ---
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
[2018-02-25] MEDS ORDERED: Isovue-370 500 ML INFUS..BTL IV ONE (14:45)
--- NOTE | 2018-02-25 15:33 | Discharge Summary ---
- NOTES TO OUTPATIENT PROVIDER Notes to Outpatient Provider: Recommend routine hospital follow-up Orders not resulted at time of discharge: Pending orders 02/25/18 07:53 NM katelyn perf SPECT multi [NM] Routine 02/25/18 14:45 CTA chest [CT angio chest] [CT] Routine Date of Encounter: 02/25/18 Time of Encounter: 15:30 - Discharge Diagnosis (1) Chest pain Priority: Primary Status: Acute Qualifiers: Chest pain type: unspecified Qualified Code(s): R07.9 - Chest pain, unspecified (2) HTN (hypertension) Priority: Primary Status: Chronic Qualifiers: Hypertension type: essential hypertension Qualified Code(s): I10 - Essential (primary) hypertension (3) Depression Priority: Primary Status: Chronic Qualifiers: Depression Type: unspecified Qualified Code(s): F32.9 - Major depressive disorder, single episode, unspecified Hospital course: Ms. Carrasco is a 67 year old female with H hypertension and depression presented to [facility] on 02/24/2018 with complaints of chest pain. She was placed in observation status for further workup and treatment. ACS ruled out with serial negative troponin, EKG without acute ST changes. Chest CTA negative for pulmonary embolism or dissection. Stress test negative for ischemia or infarct. Denied injury or trauma to chest. No known CAD, no significant family history of CAD. Chest pain possibly secondary to uncontrolled BP and/or psyhcosomatic as patient has history of depression and on multiple psychiatric medications. BP variable but acceptable. Patient was discharged home in stable condition with outpatient follow-up. She was advised to return to ER if chest pain/SOB recurs. She may benefit from outpatient echocardiogram Discharge discussed with: patient (Seen and examined at bedside. Patient is new to me, information obtained from chart review and patient report. Still having intermittent chest pain, described as stabbing sensation. Worse with shortness of breath, overall imporved. She wants to home today. ) - Time Spent with Patient Total time spent providing and/or coordinating discharge services: - Discharge Medications Home Medications: Escitalopram [Lexapro] 40 mg PO DAILY 11/15/16 [History] Pantoprazole Sodium [Protonix] 40 mg PO BID 11/15/16 [History] clonazePAM [Klonopin] 2 mg PO HS 11/15/16 [History] rOPINIRole [Requip] 2 mg PO HS 11/15/16 [History] CarBAMazepine [Carbamazepine ER] 400 mg PO HS 02/24/18 [History] Ondansetron ODT [Zofran ODT] 4 mg PO DAILY PRN 02/24/18 [History] Quetiapine Fumarate [Seroquel] 200 mg PO HS 02/24/18 [History] Allergies/Adverse Reactions: 3 Allergy/AdvReac Type Severity Reaction Status Date / Time prochlorperazine Allergy Anaphylaxis Verified 02/24/18 10:55 acetaminophen [From Vicodin] AdvReac Nausea Verified 02/24/18 10:55 hydrochlorothiazide AdvReac Rash Verified 02/24/18 10:55 hydrocodone [From Vicodin] AdvReac Nausea Verified 02/24/18 10:55 Hydromorphone [From Dilaudid] AdvReac Nausea Verified 02/24/18 10:55 metoclopramide [From Reglan] AdvReac See Verified 02/24/18 10:55 Comments promethazine [From Phenergan] AdvReac See Verified 02/24/18 10:55 Comments Date of admission: 02/24/18 11:26 Primary care physician: Wilton Marcum MD Discharging clinician: Kathy Hernández Anticipated date of discharge: 02/25/18 - Constitutional Vitals: Temp Pulse Resp BP Pulse Ox 97.8 F 66 15 163/81 98 02/25/18 11:54 02/25/18 11:54 02/25/18 11:54 02/25/18 11:54 02/25/18 11:54 General appearance: Present: A&O X 3, no acute distress - Head Head exam: Present: atraumatic, normocephalic - Eye Eye exam: Present: PERRL, conjuntiva pink, sclera anicteric Pupils: Present: PERRL - Neck Neck exam general surgery: Present: supple, trachea midline. Absent: lymphadenopathy - Respiratory Respiratory exam: Present: CTAB. Absent: accessory muscle use, rales, rhonchi, wheezes - Cardiovascular Cardiovascular exam: Present: RRR, +S1, +S2. Absent: diastolic murmur, gallop, rubs, systolic murmur - GI/Abdominal GI/Abdominal exam: Present: normal bowel sounds, soft, no peritoneal signs. Absent: distended, tenderness - Extremities Exam Extremities exam: Present: warm, radial pulses palpable and symmetrical. Absent : calf tenderness, cyanotic, pedal edema - Neurological Exam Neurological exam: Present: CN II-XII intact, oriented X3, no focal deficits. Absent: pronater drift, facial droop, speech deficit - Skin Skin exam: Present: dry, intact - Patient Status Disposition: Home, Self-Care Condition: Good Functional capacity at discharge: independent ambulation Overall status at discharge: patient is back to baseline - Discharge Instructions Instructions: Chest Pain (DC) Follow Up With: Wilton Marcum MD [Primary Care Provider] - (Please call for follow-up appt within 1 week) - Diet and Activity Activity: increase activity as tolerated Diet: advance to your usual diet
[2018-02-25] MEDS ORDERED: clonazePAM 1 MG TABLET PO SCH (21:00)
[2018-02-25] MEDS ORDERED: CarBAMazepine XR (12 hr) 100 MG TAB PO SCH (21:00)
[2018-02-25] MEDS ORDERED: rOPINIRole 1 MG TABLET PO SCH (21:00)
[2018-02-26] MEDS: Ketorolac 30 MG/ML VIAL IVP PRN ×2 (00:46→09:16)
[2018-02-26] MEDS: *HR* Heparin 5,000 UNIT/ML VIAL SQ SCH (05:47)
--- NOTE | 2018-02-26 11:15 | Gastroenterology Consult Note ---
<Javier Cardona - Last Filed: 02/26/18 11:11> Date of Encounter: 02/26/18 Time of Encounter: 10:20 - Assessment and plan (1) Chest pain Status: Acute Assessment and plan: Non-cardiac chest pain. Chest CTA showed prominent diffuse mural thickening of the esophagus and evidence of a midesophageal diverticulum. Due to patient receiving ASA on Sunday, will plan for EGD as outpatient. Continue Protonix 40 mg BID, start Zantac 150 mg daily. Patient educated regarding lifestyle modifications including: (1) avoidance of foods that may precipitate reflux (eg, coffee, alcohol, chocolate, fatty foods) . (2) avoidance of acidic foods that may precipitate heartburn (eg, citrus, carbonated drinks, spicy foods). (3) adoption of behaviors that may reduce esophageal acid exposure (see weight loss, smoking cessation, raising the head of the bed, and avoiding recumbency for 2-3 hours after meals). 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 - Time Spent With Patient Total time spent is greater than 50% in coordination of care (as documented) at patient's floor/unit and/or counseling patient: GI History of Present Illness - Data of Consult Patient: new to practice Consult date: 02/26/18 Requesting Physician: Kaleb Carmen - Consult Narrative Reason for consult: esophagitis History of present illness: Ms. Carrasco is a 67 year old female with PMHx of asthma, HLD, HTN, gastroparesis, Ellen-en-Y Mar 2017 who presented to the ED with chest pain. She reports one day history of substernal chest pain which she described as constant pressure. She states moving worsened symptoms and being still offered relief. She received 324 mg ASA on Sunday. ACS ruled out with serial negative troponin, EKG without acute ST changes. Chest CTA negative for pulmonary embolism or dissection, but did show prominent diffuse mural thickening of the esophagus and evidence of a midesophageal diverticulum. Stress test negative for ischemia or infarct. Procedures: EGD 10/18/2005 Dr. Marcum: Minimal nonspecific inflammation. EGD 03/17/2005 Dr. Sanchez: Minimal nonspecific gastritis. NSAIDs: None Anticoagulation: None Past Med Surg Social Fam HX - Past Medical History Medical history: asthma, hyperlipidemia, hypertension, other Additional medical history: gastroparesis Psychiatric history: depression - Past Surgical History Surgical History: breast surgery, cholecystectomy, hysterectomy, knee replacement (left), other (right breast lumpectomy, carpal tunnel release) Additional surgical history: carpal release, 3x sinus sx - Social History Smoking Status: Never smoker Smokeless Tobacco Status: No Alcohol use: none Drug use: none - Family History Mother Hx Family Cancer: Yes (BREAST CA) Hx Family Endocrine Disorder: Yes (DM) - Gastrointestinal Gastrointestinal: Present: as per HPI - Constitutional Constitutional: as per HPI - EENT Eyes: as per HPI Ears: Present: as per HPI Nose, mouth and throat: Present: as per HPI - Cardiovascular Cardiovascular ROS: Present: as per HPI - Respiratory Respiratory IM: Present: as per HPI - Genitourinary Genitourinary: Absent: change in color, Urinary frequency - Neurological ROS Neurological GI: Present: as per HPI - Hematologic/Lymphatic Hematologic/Lymphatic pediatric: Present: as per HPI - Musculoskeletal Musculoskeletal ROS GI: Present: as per HPI - Integumentary Integumentary GI: Present: as per HPI - Psychiatric ROS Psychiatric GI: Present: as per HPI - Endocrine Endocrine IM: Present: as per HPI - Constitutional Vitals: Temp Pulse Resp BP Pulse Ox 98.1 F 52 18 127/76 95 02/26/18 07:23 02/26/18 07:23 02/26/18 07:23 02/26/18 07:23 02/26/18 07:23 General appearance: Present: cooperative, A&O X 3, no acute distress, answers questions appropriately - Head Head exam: Present: atraumatic, normocephalic - Eye Eye exam: Present: normal appearance, sclera anicteric - ENT ENT exam: Present: mucous membranes dry - Neck Neck exam general surgery: Present: normal inspection, trachea midline - Respiratory Respiratory exam: Present: CTAB. Absent: rales, rhonchi, wheezes - Cardiovascular Cardiovascular exam: Present: RRR, +S1, +S2 - GI/Abdominal GI/Abdominal exam: Present: soft, no peritoneal signs. Absent: distended, firm , guarding, tenderness - Rectal Rectal exam: Present: deferred - Extremities Exam Extremities exam: Present: warm - Neurological Exam Neurological exam: Present: no focal deficits - Psychiatric Psychiatric exam: Present: normal affect, normal mood - Skin Skin exam: Present: dry, intact, normal color, warm Results - Labs CBC & Chem 7: 02/25/18 00:37 08 00:37 Labs: Last Result Calcium 8.9 mg/dL (8.6-10.3) 02/25/18 00:37 Troponin I < 0.03 ng/mL (< 0.04) 02/25/18 00:37 Entire Visit Hgb 12.7 g/dL (11.5-15.4) 02/25/18 00:37 Hct 38.3 % (35.3-44.9) 02/25/18 00:37 - Impressions Impressions Chest CTA 02/25/18 17:00 IMPRESSION: No evidence of pulmonary embolism or aortic dissection. There is relatively diffuse mural thickening of the esophagus, suggesting esophagitis. In addition, there is a diverticulum seen within the mid esophagus. Correlate with clinical evidence of esophagitis. Further evaluation with an esophagram and/or direct visualization may be helpful. Subtle ground-glass opacity within the mid to lower lungs, with a very small right pleural effusion. These are nonspecific findings. Correlate with any clinical evidence of mild pulmonary edema. D/ / Gael Loco MD / Gael Loco MD Interpreting Provider: Gael Loco MD Consult Discharge Plan - Plan Instructions: Chest Pain (DC) Referrals: Wilton Marcum MD [Primary Care Provider] - (Please call for follow-up appt within 1 week) Prescriptions: raNITIdine HCl [Zantac] 150 mg PO DAILY #30 tablet <Harrison Schafer - Last Filed: 03/08/18 11:02> Date of Encounter: 02/26/18 - Time Spent With Patient Total time spent is greater than 50% in coordination of care (as documented) at patient's floor/unit and/or counseling patient: GI History of Present Illness - Data of Consult Requesting Physician: Kaleb Carmen - Consult Narrative History of present illness: Ms. Carrasco is a 67 year old female - Constitutional Vitals: Temp Pulse Resp BP Pulse Ox 98.6 F 51 17 131/81 97 02/26/18 11:46 02/26/18 11:46 02/26/18 11:46 02/26/18 11:46 02/26/18 11:46 Results - Labs CBC & Chem 7: 02/25/18 00:37 02/25/18 00:37 Labs: Last Result Calcium 8.9 mg/dL (8.6-10.3) 02/25/18 00:37 Troponin I < 0.03 ng/mL (< 0.04) 02/25/18 00:37 Entire Visit Hgb 12.7 g/dL (11.5-15.4) 02/25/18 00:37 Hct 38.3 % (35.3-44.9) 02/25/18 00:37 - Attending Attestation Patient presents with chest pain. Negative cardiac workup. S/P Ellen en Y and with midesophageal diverticulum suggested. Will need EGD. Will discuss timing I have personally performed a face to face evaluation on this patient. I have reviewed and agree with the care plan. History and Exam by me shows:
[2018-02-26 11:48] VITALS: BP 131/81
--- NOTE | 2018-02-26 12:30 | Internal Med Progress Note ---
Hospitalist Progress Note - Encounter Date of Encounter: 02/26/18 Time of Encounter: 12:27 - Subjective Interval History: Pt still having mild chest pain, but denies sob, palpitation, or syncope. - Exam Vitals: Temp Pulse Resp BP Pulse Ox 98.6 F 51 17 131/81 97 02/26/18 11:46 02/26/18 11:46 02/26/18 11:46 02/26/18 11:46 02/26/18 11:46 Exam: PHYSICAL EXAMINATION: GENERAL APPEARANCE: The patient is alert, oriented and in no acute distress. HEENT: Head is normocephalic. The sinuses are nontender. Pupils are equal and reactive. The nares are patent. Oropharynx clear without lesions. NECK: Supple without lymphadenopathy. HEART: Regular rate and rhythm. LUNGS: No crackles or wheezes are heard. ABDOMEN: Soft, nontender, nondistended with good bowel sounds heard. Inguinal area is normal. EXTREMITIES: Without cyanosis, clubbing or edema. NEUROLOGICAL: Gross nonfocal. SKIN: Warm and dry without any rash. - Assessment and Plan (1) Chest pain Current Visit: Yes Status: Acute Assessment and Plan: Stress nuclear test negative for ischemia, CT chest revealed diffuse wall thickening of the esophagus and also her mid esophagus diverticulum. GI was consulted, outpatient EGD was scheduled. Patient was instructed to continue taking PPI, she was also started on Zantac. (2) HTN (hypertension) Current Visit: No Status: Chronic Assessment and Plan: Continue home medications (3) Depression Current Visit: No Status: Chronic Assessment and Plan: Continue home medications - Time Spent with Patient Total time spent is greater than 50% in coordination of care (as documented) at patient's floor/unit and/or counseling patient: 25 - 35 minutes Plan of Care Discussed with: patient Internal Medicine: Result - Labs CBC & Chem 7: 02/25/18 00:37 02/25/18 00:37 - Impressions Impressions Chest CTA 02/25/18 17:00 IMPRESSION: No evidence of pulmonary embolism or aortic dissection. There is relatively diffuse mural thickening of the esophagus, suggesting esophagitis. In addition, there is a diverticulum seen within the mid esophagus. Correlate with clinical evidence of esophagitis. Further evaluation with an esophagram and/or direct visualization may be helpful. Subtle ground-glass opacity within the mid to lower lungs, with a very small right pleural effusion. These are nonspecific findings. Correlate with any clinical evidence of mild pulmonary edema. D/ / Gael Loco MD / Gael Loco MD Interpreting Provider: Gael Loco MD Consult Discharge Plan - Plan Instructions: Chest Pain (DC) Referrals: Wilton Marcum MD [Primary Care Provider] - (Please call for follow-up appt within 1 week) (1) Chest pain Qualifiers: Chest pain type: unspecified Qualified Code(s): R07.9 - Chest pain, unspecified (2) HTN (hypertension) Qualifiers: Hypertension type: essential hypertension Qualified Code(s): I10 - Essential (primary) hypertension (3) Depression Qualifiers: Depression Type: unspecified Qualified Code(s): F32.9 - Major depressive disorder, single episode, unspecified
[2018-02-26] MEDS ORDERED: Pantoprazole 40 MG VIAL IVP SCH (18:00)
== END 2018-02-26 13:03 | disposition home or self-care (01) ==
LOC: 3BNU 09:26 → EMEROO 09:26 → 3BNU 12:08
PROVIDERS: ADMIT Hospitalist; ATTEND Hospitalist

== ENCOUNTER 2019-01-30 06:28 | Observation (INO) ==
[2019-01-30] MEDS ORDERED: CeFAZolin Syr 2,000MG/20 ML 2,000 MG/20 ML SYRINGE IVPB ONE (06:43)
[2019-01-30] MEDS ORDERED: Ringers Solution, Lactated 1,000 ML IVC SCH (06:45)
[2019-01-30] MEDS ORDERED: Dexamethasone 4 MG/ML VIAL ONE ×2 (07:14→11:55)
[2019-01-30] MEDS ORDERED: Lidocaine -MPF 2% 2 ML VIAL ONE (07:14)
[2019-01-30] MEDS ORDERED: Lidocaine -MPF 4% 5 ML AMPUL ONE (07:14)
[2019-01-30] MEDS ORDERED: Ondansetron 4 MG/2 ML VIAL ONE (07:14)
[2019-01-30] MEDS ORDERED: *HR* Succinylcholine 200 MG/10 ML VIAL IVP ONE (07:14)
[2019-01-30] MEDS ORDERED: *HR* Rocuronium Bromide 50 MG/5 ML VIAL ONE ×2 (07:14→09:26)
[2019-01-30] MEDS ORDERED: *HR* FentaNYL (PF) 100 MCG/2 ML VIAL ONE ×5 (07:16→12:36)
[2019-01-30] MEDS ORDERED: *HR* Propofol 200 MG/20 ML VIAL IVP ONE (07:17)
[2019-01-30] MEDS ORDERED: *HR* Midazolam HCl 2 MG/2 ML VIAL ONE (07:17)
--- NOTE | 2019-01-30 07:26 | Anesthesia Evaluation PreOp ---
Date of Encounter: 01/30/19 Time of Encounter: 07:25 - Past History Planned Operation: Incisional Hernia Repair Cardiac History: Denies any Significant Hx Pulmonary History: Denies Any Significant HX, Snore INTERN ARCHITECT History: Denies Any Significant HX Other Medical History: GERD Anesthesia History: No Prior Anesthetic Complications, Past Anesthesia Alcohol Use: none Drug use: none Medications and Allergies Escitalopram [Lexapro] 20 mg PO DAILY 09/09/18 [History] Quetiapine Fumarate [Seroquel] 200 mg PO HS 09/09/18 [History] carBAMazepine [Carbamazepine ER] 400 mg PO HS PRN 09/09/18 [History] clonazePAM [Clonazepam] 2 mg PO HS 09/09/18 [History] rOPINIRole [Requip] 2 mg PO HS 09/09/18 [History] Acetaminophen [Tylenol] 500 mg PO Q6H PRN 01/30/19 [History] Calcium Citrate 500 mg PO QAM 01/30/19 [History] Cholecalciferol (Vitamin D3) [Dialyvite Vitamin D] 5,000 units PO QAM 01/30/19 [History] Cyanocobalamin (Vitamin B-12) [Vitamin B-12] 500 mcg PO QAM 01/30/19 [History] Ferrous Sulfate [Iron] 325 mg PO QAM 01/30/19 [History] Multivitamin [Daily Multiple Vitamin] 1 tab PO QAM 01/30/19 [History] Ondansetron ODT [Zofran ODT] 4 mg PO Q6H PRN 01/30/19 [History] Pantoprazole Sodium [Protonix] 40 mg PO BID PRN 01/30/19 [History] Allergy/AdvReac Type Severity Reaction Status Date / Time prochlorperazine Allergy Anaphylaxis Verified 01/30/19 07:21 hydrochlorothiazide AdvReac Rash Verified 01/30/19 07:21 metoclopramide [From Reglan] AdvReac See Verified 01/30/19 07:21 Comments promethazine [From Phenergan] AdvReac See Verified 01/30/19 07:21 Comments - Meds/Allergy Pre-op Review Medications Reviewed: Yes Allergies Reviewed: Yes Beta Blockers on Current Med List: No Anesthesia Results - Labs Laboratory Tests 01/07/19 01/07/19 19:31 19:31 WBC 6.0 Hgb 13.4 Hct 39.6 Plt Count 209 Sodium 141 Potassium 4.0 BUN 28 H Creatinine 0.67 - Imaging EKG: report reviewed (03/14/2018 Sinus bradycardia) Additional studies: 02/25/2018 Stress Impression: Pharmacologic stress ECG is negative for ischemia at level of heart rate achieved. Gated EF = 72%. Small sized, mild intensity, fixed inferior perfusion defect with normal wall motion. These findings are most consistent with artifact. Perfusion imaging was negative for ischemia or infarct. 12/27/2015 Echo Impressions: LVEF 60-65%. Mild concentric left ventricular hypertrophy measuring 1.4 cm. Mild left ventricular diastolic dysfunction. Normal right ventricular structure and function. No evidence of pulmonary hypertension. No significant valvular dysfunction. Anesthesia Exam O2 Sat Height 1.52 m Height 1.52 m Weight 67.132 kg Weight 67.132 kg O2 Sat by Pulse Oximetry 95 Vital Signs Temp Pulse Resp BP Pulse Ox 98.1 F 57 18 133/75 95 01/30/19 07:01 01/30/19 07:01 01/30/19 07:01 01/30/19 07:01 01/30/19 07:01 Height: 5' Weight: 148 lbs NPO (# of Hours): 8 Pain Scale: 0 Pain Scale Used: Numeric (1 - 10) - HEENT Pupil (Motor): EOMI Mallampati: II Teeth: Edentulous Denture Type: Upper: Complete, Lower: Complete Oral Opening: Greater than 3 - INTERN ARCHITECT LOC: Oriented INTERN ARCHITECT Motor: Normal RUE, Normal LUE, Normal RLE, Normal LLE, Normal Face INTERN ARCHITECT Sensory: Normal: RUE, LUE, RLE, LLE, Face - Cardiac Rhythm: Regular Murmur: None - Pulmonary Breath Sounds: bilateral Clear Respiratory Effort: Symmetrical Anesthesia Assess/Plan ASA Score: 2 Level of consciousness: Cooperative, Oriented, Tranquil Anesthetic Plan: General Monitoring Plan: Standard Monitors Recovery Plan: PACU
[2019-01-30] MEDS ORDERED: *HR* OxyCODONE Immed Rel 5 MG TABLET PO PRN (07:41)
[2019-01-30] MEDS ORDERED: Ondansetron 4 MG/2 ML VIAL IVP ONE (07:41)
[2019-01-30] MEDS ORDERED: *HR* Promethazine 25 MG/ML VIAL IVP PRN (07:41)
[2019-01-30] MEDS ORDERED: Acetaminophen IV 1,000 MG/100 ML INFUS..BTL IVPB ONE (07:43)
--- NOTE | 2019-01-30 08:07 | History & Physical Report ---
Date of Encounter: 01/30/19 Time of Encounter: 08:06 24 Hour HP Update - Instructions Instructions: If the History and Physical is less than 30 days old and was completed prior to A.M. admission and or procedure and has NOT been updated on calendar day of procedure please complete this update prior to performing procedure. - Update Patient reports changes in Medical Condition: No Changes in examination, assessment, or condition: No Changes in Medication: No Surgery Remains Indicated: Yes Consent for Planned Operative Procedure(s) Verified: Yes - Pre-Operative Checklist Prophylactic Antibiotic Ordered: Yes Home Medications Include Beta Reyes: No Is VTE Prophylaxis Indicated?: Yes
--- NOTE | 2019-01-30 08:11 | Operative Note ---
Date of procedure: 01/30/19 Pre-op diagnosis: incisional hernia, painful RUQ scar Post-op diagnosis: same Procedure: Open/robotic repair incisional hernia, right upper abdomen scar revision Complications: none immediate Anesthesia: MERCEDES Surgeon: Radha Maradiaga Was there an printer floor covering assistant present: Yes Labor Economist: Leonie Reyes Estimated blood loss (cc): 5 Specimen: none Condition: stable Disposition: PACU Procedure in Detail: Patient is brought into the operating suite and placed supine on the operating table. Sign in was performed and everyone was in agreement. Anesthesia was induced and patient was endotracheally intubated by anesthesia without incident. Abdomen was prepped and draped in usual sterile fashion. Timeout was performed again everyone was in agreement. A elliptical incision through the skin and the subcutaneous tissue surrounding her previous upper midline scar was made with a 15 blade. The scar was excised with the Bovie. Dissection down to the anterior abdominal wall was covered with the Bovie. The hernia was evident through the fat and the abdomen was entered with gentle blunt dissection. Nicole's are placed on the bilateral abdominal wall fascia for retraction. Due to patient's previous multiple open abdominal surgeries she had significant adhesions from the small bowel to the anterior abdominal wall and small bowel to small bowel, small bowel to colon. Lysis of adhesions was performed for a little over an hour. The fascial edges were dissected from the subcutaneous tissue with the Bovie making identification and attainment easier. The small bowel was run from the terminal ileum up to and past the Ellen-en-Y anastomosis. There was a small 0.5 cm serosal tear which is not an unexpected event giving the severe nature of her adhesions. This was reapproximated with two 3-0 silk interrupted stitches. The abdominal cavity was copiously irrigated with sterile saline. The midline defect measured 15 cm long and a 20 x 12 symbotex cavity and mesh with a 2-0 silk stitch tied to the center was placed into the abdominal cavity. Nicole's are placed on either side of the fascia for retraction. The abdominal wall was reapproximated with 3 #1 nonabsorbable V LOC running stitches. Prior to the fascia being completely closed a left upper quadrant incision through the skin into subcutaneous tissue was made with an 11 blade and an 8 mm robotic port placed through this under direct visualization. The subcutaneous tissue was copiously irrigated with sterile saline. The subcutaneous tissue was reapproximated with 3-0 Vicryl interrupted stitches. The skin was closed with laine. The abdomen was then insufflated through the left upper quadrant 8 mm robotic port. And 2 more 8 mm robotic ports were placed one in the left lower quadrant and one in the left abdominal wall under direct visualization after first incising the skin with 11 blade. The robot was brought over the patient's right abdomen and docked. Using a laparoscopic suture passer placed through the middle of the end vision the 2-0 Vicryl stitch was tied to the middle mesh was brought up through the abdominal wall and secured at the skin level with a hemostat. 2 #0 absorbable V LOC stitches were placed into the abdominal cavity. The mesh was secured to the anterior-abdominal wall using the #0 absorbable V LOC running stitches. The suture was removed from the abdominal cavity. The trochars were removed. The 38 mm robotic port sites at the skin were closed with an 4-0 Monocryl interrupted subcuticular stitch. Patient's right upper quadrant painful retracted scar was excised in an elliptical fashion with a 15 blade. The subcutaneous tissue/scar was excised with the Bovie. The subcutaneous tissue proximally and distally to the incision were undermined with the Bovie. The subcutaneous tissue was reapproximated with 3-0 Vicryl interrupted stitches in 2 layers. The skin was closed with 4-0 Monocryl running subcuticular stitch. Mastisol and Steri-Strips were applied to the right upper quadrant scar revision as well as the left abdominal port sites. 4 x 4 gauze and Medipore tape were applied to the midline incision. Binder was placed on the abdomen. A tap block was performed by anesthesia while still in the OR. Patient was awoken by anesthesia and extubated in the OR without incident. She was taken to PACU in stable condition
[2019-01-30] MEDS ORDERED: Fluconazole 200 MG/100 ML 200 MG/100 ML BAG IVPB SCH (09:00)
[2019-01-30] MEDS ORDERED: *HR* Labetalol 20 MG/4 ML SYRINGE IVP ONE (09:08)
[2019-01-30] MEDS ORDERED: ROPIVACAINE/PF/NS 0.25% 1 EACH SYRINGE INTRAART ONE (11:26)
[2019-01-30] MEDS ORDERED: Ketorolac 30 MG/ML VIAL ONE (12:34)
--- NOTE | 2019-01-30 12:39 | Anesthesia Procedures ---
Date of Encounter: 01/30/19 Time of Encounter: 12:15 Procedures: Anesthesia - Nerve Block Procedure Date: 01/30/19 Time: 12:15 Checklist: Correct Patient Identifier, Correct procedure, History checked Correct side: Right (bilateral) Blood Thinner: No Monitor Applied: EKG, BP, Pulse Oximetry Indication: Post Op Analgesia Pre-op Neuro Deficits: No Block Type: Other (TAP) Catheter placed: No Sterile Technique: Yes Ultrasound used: Yes Anatomy identified: Yes Visual spread of Local: Yes Neuro Stimulation: No Blood on Needle Aspiration: No Smooth Injection of Local: Yes Pain with Injection of Local: No Prep: Chlorhexadine Needle: 21 x 100 mm Stimuplex Local: Ropivacaine (0.25%) Volume (cc): 80 Number of Attempts: 1 Complications: None/effective block
[2019-01-30] MEDS: *HR* HYDROmorphone (PF) 1 MG/ML SYRINGE IVP PRN ×2 (12:51→12:58)
--- NOTE | 2019-01-30 14:08 | Anesthesia Evaluation Post Op ---
Date of Encounter: 01/30/19 Time of Encounter: 14:08 - Vital Signs Vital Signs: Vital Signs/O2 Sat, Most Current Temp Pulse Resp BP Pulse Ox 98.2 F 71 13 111/59 94 01/30/19 13:38 01/30/19 13:58 01/30/19 13:58 01/30/19 13:58 01/30/19 13:58 - Lungs Lungs: Clear Ascult./Percussion - Airway Airway: Non-obstructed - Cardiovascular Regular Rate - Mental Status Mental Status: Alert & Oriented, Answers Appropriately - Pain Pain Scale: 4 Pain Scale used: Numeric (1 - 10) - Nausea Vomiting Nausea Vomiting: Not Present - Hydration Hydration: Ice chips, Has not voided - Discharge PostOp Status: Transfer Patient to floor
[2019-01-30] MEDS ORDERED: *HR* Metoprolol 5 MG/5 ML VIAL IVP PRN (15:34)
[2019-01-30] MEDS ORDERED: Ondansetron 4 MG/2 ML VIAL IVP PRN (15:34)
[2019-01-30] MEDS ORDERED: *HR* OxyCODONE Oral Soln 5 MG/5 ML UD.LIQ PO PRN (15:34)
[2019-01-30] MEDS ORDERED: Naloxone 0.4 MG/ML INJ IVP PRN (15:34)
[2019-01-30] MEDS: *HR* OxyCODONE/APAP 5/325 TABLET PO PRN ×2 (17:09→21:28)
[2019-01-30] MEDS: 0.9 % Sodium Chloride 1,000 ML IVC SCH (17:09)
[2019-01-30] MEDS: *HR* OxyCODONE Oral Soln 5 MG/5 ML UD.LIQ PO PRN (18:27)
[2019-01-30] MEDS: rOPINIRole 1 MG TABLET PO SCH (21:25)
[2019-01-31] MEDS: *HR* OxyCODONE Oral Soln 5 MG/5 ML UD.LIQ PO PRN ×4 (01:16→18:09)
[2019-01-31] MEDS: *HR* OxyCODONE/APAP 5/325 TABLET PO PRN ×2 (04:17→08:55)
[2019-01-31 05:52] LABS: Basophils % 0.1 %; Hematocrit 36.4 % (35.3-44.9); Hemoglobin 11.6 g/dL (11.5-15.4); Immature Granulocytes % 0.5 % (0-4); Lymphocytes # 1.5 K/mcL (0.6-4.6); Lymphocytes % 18.7 %; Mean Corpuscular HGB Conc 31.9 g/dL (31.6-35.5); Mean Corpuscular Hemoglobin 30.7 pg (28.0-33.3); Mean Corpuscular Volume 96.3 fL (83.0-100.0); Mean Platelet Volume 10.8 fL (9.4-12.4); Monocytes # 0.9 K/mcL (0.0-1.3); Monocytes % 11.3 %; Neutrophils # 5.4 K/mcL (1.6-8.9); Platelet Count 180 K/mcL (140-400); Red Blood Count 3.78 M/mcL (3.82-4.97); Red Cell Distribution Width 13.1 % (11.5-14.5); Segmented Neutrophils % 69.4 %; White Blood Count 7.8 K/mcL (4.3-11.1)
[2019-01-31 06:10] LABS: BUN/Creatinine Ratio 38 (6-26); Blood Urea Nitrogen 23 mg/dL (8-23); Calcium 8.4 mg/dL (8.6-10.3); Carbon Dioxide 26 mEq/L (23-29); Chloride 105 mEq/L (98-107); Glucose 130 mg/dL (70-105); Osmolality,Calculated 289 (280-300); Potassium 3.8 mEq/L (3.5-5.1); Sodium 137 mEq/L (136-145); eGFR For African Americans > 60 (> 60); eGFR For Non-African Americans > 60 (> 60)
[2019-01-31] MEDS: Ketorolac 15 MG/ML VIAL IVP SCH ×4 (08:55→21:50)
[2019-01-31] MEDS: 0.9 % Sodium Chloride 1,000 ML IVC SCH ×2 (09:00→12:10)
[2019-01-31] MEDS ORDERED: *HR* OxyCODONE/APAP 7.5/325 TABLET PO PRN (09:08)
--- NOTE | 2019-01-31 10:02 | General Surgery Progress Note ---
<Yessi James - Last Filed: 01/31/19 09:59> Date of Encounter: 01/31/19 Time of Encounter: 07:50 - Assessment and Plan (1) Incisional hernia Current Visit: Yes Status: Acute Date of procedure: 01/30/19 Pre-op diagnosis: incisional hernia, painful RUQ scar Post-op diagnosis: same Procedure: Open/robotic repair incisional hernia, right upper abdomen scar revision Complications: none immediate Anesthesia: GETA Surgeon: Radha Maradiaga POD #1 as above. S/P BL TAP block. Pt is recovering as expected. Her pain is somewhat controlled. we will add scheduled IV toradol. Continue hospital care for pain control Encouraged OOB to chair and ambulation Anticipate d/c in the next 24-48 hours pending clinical course incentive spirometry EP CDs accurate intake and output regular diet DC IV fluids no need for repeat a.m. labs Qualifiers: Obstruction and gangrene presence: without obstruction or gangrene Qualified Code(s): K43.2 - Incisional hernia without obstruction or gangrene; K43.91 - Incisional hernia, without obstruction or gangrene (2) Gastroparesis Current Visit: Yes Status: Chronic Tolerating diet at present Continue to closely monitor (3) HTN (hypertension) Current Visit: No Status: Chronic Controlled. Continue home meds Qualifiers: Hypertension type: essential hypertension Qualified Code(s): I10 - Essential (primary) hypertension Subjective Patient reports: no new complaints, still having pain, pain is less, tolerating liquids well, voiding w/o difficulty, flatus, no bowel movement Objective Vital Signs - Last 8 Hours Temp Pulse Resp BP Pulse Ox 01/31/19 07:49 98 F 73 14 155/80 99 01/31/19 04:18 99.2 F 72 14 151/81 92 Intake and Output 01/30/19 01/31/19 01/31/19 23:59 07:59 15:59 Intake Total 360 / 480 1000 / 1000 Balance 360 / 469 1000 / 1000 Intake: IV Fluids 1000 / 1000 0.9 % Sodium Chloride 1,000 ML 1000 / 1000 @ 75 mls/hr IVC .[id number] MUNA Rx #:[id number] Oral 360 / 360 Other: Percent of Meal Consumed 0% # Voids 1 1 - General physical appearance no distress, no pain (at rest) - ENT atraumatic, normocephalic - Neck Neck exam: trachea midline - Respiratory normal expansion, clear to auscultation - Cardiovascular Cardiovascular exam: Present: RRR - Abdomen Abdomen: Present: bowel sounds present (faint), soft, tender (expected postoperative) Hernia: none - Incision Incision: Present: clean and dry, intact - Integumentary no rash - Neurologic normal sensation - Musculoskeletal normal posture - Psychiatric oriented to time, oriented to person, oriented to place - Labs 01/31/19 05:29 01/31/19 05:29 Diabetes panel 01/31/19 Range/Units 05:29 Sodium 137 (136-145) mEq/L Potassium 3.8 (3.5-5.1) mEq/L Chloride 105 (98-107) mEq/L Carbon Dioxide 26 (23-29) mEq/L BUN 23 (8-23) mg/dL Creatinine 0.61 (0.60-1.20) mg/dL Glucose 130 H (70-105) mg/dL Calcium 8.4 L (8.6-10.3) mg/dL Calcium panel 01/31/19 Range/Units 05:29 Calcium 8.4 L (8.6-10.3) mg/dL Pituitary panel 01/31/19 Range/Units 05:29 Sodium 137 (136-145) mEq/L Potassium 3.8 (3.5-5.1) mEq/L Chloride 105 (98-107) mEq/L Carbon Dioxide 26 (23-29) mEq/L BUN 23 (8-23) mg/dL Creatinine 0.61 (0.60-1.20) mg/dL Glucose 130 H (70-105) mg/dL Calcium 8.4 L (8.6-10.3) mg/dL Adrenal panel 01/31/19 Range/Units 05:29 Sodium 137 (136-145) mEq/L Potassium 3.8 (3.5-5.1) mEq/L Chloride 105 (98-107) mEq/L Carbon Dioxide 26 (23-29) mEq/L BUN 23 (8-23) mg/dL Creatinine 0.61 (0.60-1.20) mg/dL Glucose 130 H (70-105) mg/dL Calcium 8.4 L (8.6-10.3) mg/dL - VTE Reasons for not Prescribing Prophylaxis: Treatment not Indicated - Low risk for VTE Consult Discharge Plan - Plan Instructions: Laparoscopic Herniorrhaphy (DC), Open Herniorrhaphy (DC) Additional Instructions: No lifting more than 15 pounds for 7 weeks. Okay to take a shower in 24 hours. No tub baths or pools until after laine removed Okay to ride in the car wearing a seatbelt and climb steps. No driving until off narcotics for 24 hours and able to react safely Remove Steri-Strips in 1 week Do not take pain medicine/narcotics on an empty stomach it will likely cause nausea and possibly vomiting. If pain medication is too strong okay to break in half ok to use ice packs to area(s) of pain - on for 20 minutes, off for 20 minutes abdominal binder for comfort Referrals: Wilton Marcum MD [Primary Care Provider] - Radha Maradiaga MD [Partnered Physician] - 02/12/19 2:50 pm <Radha Maradiaga - Last Filed: 01/31/19 10:28> Date of Encounter: 01/31/19 - Assessment and Plan (1) Incisional hernia Current Visit: Yes Status: Chronic pod 1 open/robotic incisional hernia repair with mesh, scar revision at [facility] pain is not adequately controlled increase percocet to 7.5 mg and add iv toradol OOB to chair with meals patient with good bowel sounds, no flatus or bm yet she has not been drinking much and has only eaten a bag of goldfish, will decrease IVF to 50 labs wnl aggressive pulmonary toilet ok to shower abd binder for comfort Qualifiers: Obstruction and gangrene presence: without obstruction or gangrene Qualified Code(s): K43.2 - Incisional hernia without obstruction or gangrene; K43.91 - Incisional hernia, without obstruction or gangrene (2) GERD (gastroesophageal reflux disease) Current Visit: Yes Status: Chronic continue pPi therapy NO po nsaids Qualifiers: Esophagitis presence: esophagitis presence not specified Qualified Code(s): K21.9 - Gastro-esophageal reflux disease without esophagitis (3) S/P gastric bypass Current Visit: Yes Status: Chronic this was done to gastroparesis (4) Gastroparesis Current Visit: No Status: Chronic Subjective Patient reports: still having pain, tolerating liquids well, voiding w/o difficulty, no flatus, no bowel movement, afebrile Objective Vital Signs - Last 8 Hours Temp Pulse Resp BP Pulse Ox 01/31/19 07:49 98 F 73 14 155/80 99 01/31/19 04:18 99.2 F 72 14 151/81 92 Intake and Output 01/30/19 01/31/19 01/31/19 23:59 07:59 15:59 Intake Total 360 / 480 1000 / 1000 Balance 360 / 469 1000 / 1000 Intake: IV Fluids 1000 / 1000 0.9 % Sodium Chloride 1,000 ML 1000 / 1000 @ 75 mls/hr IVC .[id number] MUNA Rx #:[id number] Oral 360 / 360 Other: Percent of Meal Consumed 0% # Voids 1 1 - General physical appearance well developed, well nourished, no distress, moderate pain - Eyes PERRL - ENT normal mucosa, normocephalic - Respiratory normal expansion, clear to auscultation - Cardiovascular Cardiovascular exam: Present: RRR - Abdomen Abdomen: Present: bowel sounds present, soft, tender (appropriate post op pain) - Incision Incision: Present: clean and dry, intact - Integumentary no rash - Neurologic CN 2-12 grossly intact, normal sensation - Musculoskeletal normal posture - Psychiatric oriented to time, oriented to person, oriented to place, speech is normal, memory intact - Labs 01/31/19 05:29 01/31/19 05:29 Diabetes panel 01/31/19 Range/Units 05:29 Sodium 137 (136-145) mEq/L Potassium 3.8 (3.5-5.1) mEq/L Chloride 105 (98-107) mEq/L Carbon Dioxide 26 (23-29) mEq/L BUN 23 (8-23) mg/dL Creatinine 0.61 (0.60-1.20) mg/dL Glucose 130 H (70-105) mg/dL Calcium 8.4 L (8.6-10.3) mg/dL Calcium panel 01/31/19 Range/Units 05:29 Calcium 8.4 L (8.6-10.3) mg/dL Pituitary panel 01/31/19 Range/Units 05:29 Sodium 137 (136-145) mEq/L Potassium 3.8 (3.5-5.1) mEq/L Chloride 105 (98-107) mEq/L Carbon Dioxide 26 (23-29) mEq/L BUN 23 (8-23) mg/dL Creatinine 0.61 (0.60-1.20) mg/dL Glucose 130 H (70-105) mg/dL Calcium 8.4 L (8.6-10.3) mg/dL Adrenal panel 01/31/19 Range/Units 05:29 Sodium 137 (136-145) mEq/L Potassium 3.8 (3.5-5.1) mEq/L Chloride 105 (98-107) mEq/L Carbon Dioxide 26 (23-29) mEq/L BUN 23 (8-23) mg/dL Creatinine 0.61 (0.60-1.20) mg/dL Glucose 130 H (70-105) mg/dL Calcium 8.4 L (8.6-10.3) mg/dL - Attending Attestation I have personally performed a face to face evaluation on this patient. I have reviewed and agree with the care plan. History and Exam by me shows:
[2019-01-31] MEDS: *HR* OxyCODONE/APAP 7.5/325 TABLET PO SCH ×3 (12:10→21:14)
[2019-01-31] MEDS: rOPINIRole 1 MG TABLET PO SCH ×2 (21:15→21:23)
[2019-01-31] MEDS: clonazePAM 1 MG TABLET PO SCH (21:15)
[2019-02-01] MEDS: *HR* OxyCODONE/APAP 7.5/325 TABLET PO SCH ×6 (01:00→20:43)
[2019-02-01] MEDS: Ketorolac 15 MG/ML VIAL IVP SCH ×3 (06:12→18:04)
[2019-02-01] MEDS: 0.9 % Sodium Chloride 1,000 ML IVC SCH (19:37)
--- NOTE | 2019-02-01 20:42 | AcuteCareSurgery Progress Note ---
Date of Encounter: 02/01/19 Time of Encounter: 16:00 - Assessment and Plan (1) S/P ventral herniorrhaphy Current Visit: Yes Status: Acute Pt pain is improving. Tolerating regular diet. Maintain current care. Change to PO pain meds only and possible DC to home tomorrow. Subjective Patient reports: no new complaints, feels better, still having pain, pain is less, tolerating a regular diet, flatus, afebrile Objective Vital Signs - Last 8 Hours Temp Pulse Resp BP Pulse Ox 02/01/19 19:32 98.4 F 82 16 162/93 94 02/01/19 15:37 98.2 F 77 16 165/90 95 Intake and Output 02/01/19 02/01/19 02/01/19 07:59 15:59 23:59 Intake Total 0 / 240 120 / 240 120 / 240 Balance 0 / 240 120 / 240 120 / 240 Intake: Oral 0 / 240 120 / 240 120 / 240 Other: Meal Lunch Dinner Percent of Meal Consumed 100% 90% # Voids 0 2 # Bowel Movements 0 Weight 67.3 kg Patient Weight 02/01/19 23:59 Weight 67.3 kg - General physical appearance no distress, moderate pain - Eyes PERRL, normal ocular movement - ENT normal mucosa, no congestion - Neck Neck exam: no venous distension - Respiratory normal respiratory effort, clear to auscultation - Cardiovascular Cardiovascular exam: Present: RRR - Abdomen Abdomen: Present: bowel sounds present, tender. Absent: distended - Incision Incision: Present: clean and dry, intact - Neurologic CN 2-12 grossly intact, normal coordination - Musculoskeletal normal posture - Psychiatric oriented to time, oriented to person, oriented to place - Labs 01/31/19 05:29 01/31/19 05:29 - VTE Reasons for not Prescribing Prophylaxis: Treatment not Indicated - Low risk for VTE Consult Discharge Plan - Plan Instructions: Open Herniorrhaphy (DC), Laparoscopic Herniorrhaphy (DC) Additional Instructions: No lifting more than 15 pounds for 7 weeks. Okay to take a shower in 24 hours. No tub baths or pools until after laine removed Okay to ride in the car wearing a seatbelt and climb steps. No driving until off narcotics for 24 hours and able to react safely Remove Steri-Strips in 1 week Do not take pain medicine/narcotics on an empty stomach it will likely cause nausea and possibly vomiting. If pain medication is too strong okay to break in half ok to use ice packs to area(s) of pain - on for 20 minutes, off for 20 minutes abdominal binder for comfort Referrals: Wilton Marcum MD [Primary Care Provider] - Radha Maradiaga MD [Partnered Physician] - 02/12/19 2:50 pm
[2019-02-01] MEDS: rOPINIRole 1 MG TABLET PO SCH (20:43)
[2019-02-01] MEDS: clonazePAM 1 MG TABLET PO SCH (20:43)
[2019-02-02] MEDS: Ketorolac 15 MG/ML VIAL IVP SCH ×2 (00:31→05:54)
[2019-02-02] MEDS: *HR* OxyCODONE/APAP 7.5/325 TABLET PO SCH ×3 (00:31→08:55)
--- NOTE | 2019-02-02 08:37 | Discharge Summary ---
Date of Encounter: 02/02/19 Time of Encounter: 08:41 - Discharge Diagnosis (1) Incisional hernia Priority: Primary Status: Chronic Qualifiers: Obstruction and gangrene presence: without obstruction or gangrene Qualified Code(s): K43.2 - Incisional hernia without obstruction or gangrene; K43.91 - Incisional hernia, without obstruction or gangrene (2) Gastroparesis Priority: Secondary Status: Chronic (3) HTN (hypertension) Priority: Secondary Status: Chronic Qualifiers: Hypertension type: essential hypertension Qualified Code(s): I10 - Essential (primary) hypertension General Surgery Exam Initial Vital Signs Temp Pulse Resp BP Pulse Ox 98.1 F 57 18 133/75 95 01/30/19 07:01 01/30/19 07:01 01/30/19 07:01 01/30/19 07:01 01/30/19 07:01 - General physical appearance well nourished, no distress, moderate pain (controlled with meds) - Neck trachea midline - Respiratory normal expansion, clear to auscultation - Cardiovascular Cardiovascular exam: Present: RRR - Abdomen Abdomen general surgery: Present: bowel sounds present, soft, tender (expected postoperative) - Incision Incision: Present: clean and dry, intact - Integumentary Integumentary general surgery: Present: warm and dry - Neurologic Present: normal coordination, normal sensation - Musculoskeletal Present: normal gait, normal posture - Psychiatric Psychiatric general surgery: Present: appropriate, oriented to person, oriented to place, oriented to time, speech is normal, memory intact - Hospital Course Hospital course: Ms. Carrasco is a 68 year old female presented on 01/30/2019 for an open/robotic repair of incisional hernia and right upper abdomen scar revision with Dr. Maradiaga. Her postoperative course was complicated by pain control. Her pain is now controlled. She is ambulating and voiding without difficulty, tolerating a diet without nausea or vomiting, vital signs are stable, and she is afebrile. We will begin discharge planning to home with a follow-up in the office in approximately 2 weeks. - Time Spent with Patient Total time spent providing and/or coordinating discharge services: - Discharge Medications Prescriptions: New Docusate Sodium [Colace] 100 mg PO BID PRN #30 capsule PRN Reason: Contstipation OxyCODONE Immed Rel [Roxicodone 5 MG] 5 mg PO Q6HR PRN 7 Days #28 tablet PRN Reason: Severe Pain Ondansetron ODT [Zofran ODT] 4 mg SL Q4HR PRN #15 tab.rapdis PRN Reason: Postsurgical nausea Lidocaine Patch [Lidoderm 5% patch] 1 each TP DAILY #10 adh..patch Continued rOPINIRole [Requip] 2 mg PO HS clonazePAM [Clonazepam] 4 mg PO HS PRN PRN Reason: Anxiety Quetiapine Fumarate [Seroquel] 200 mg PO HS Escitalopram [Lexapro] 20 mg PO QPM carBAMazepine [Carbamazepine ER] 400 mg PO HS PRN PRN Reason: TINNITUS Acetaminophen [Tylenol] 500 mg PO Q6H PRN PRN Reason: Pain Calcium Citrate 500 mg PO QAM Cholecalciferol (Vitamin D3) [Dialyvite Vitamin D] 5,000 units PO QAM Cyanocobalamin (Vitamin B-12) [Vitamin B-12] 500 mcg PO QAM Ferrous Sulfate [Iron] 325 mg PO QAM Multivitamin [Daily Multiple Vitamin] 1 tab PO QAM Ondansetron ODT [Zofran ODT] 4 mg PO Q6H PRN PRN Reason: Nausea Pantoprazole Sodium [Protonix] 40 mg PO BID PRN PRN Reason: Heartburn Home Medications: Escitalopram [Lexapro] 20 mg PO QPM 09/09/18 [History] Quetiapine Fumarate [Seroquel] 200 mg PO HS 09/09/18 [History] carBAMazepine [Carbamazepine ER] 400 mg PO HS PRN 09/09/18 [History] clonazePAM [Clonazepam] 4 mg PO HS PRN 09/09/18 [History] rOPINIRole [Requip] 2 mg PO HS 09/09/18 [History] Acetaminophen [Tylenol] 500 mg PO Q6H PRN 01/30/19 [History] Calcium Citrate 500 mg PO QAM 01/30/19 [History] Cholecalciferol (Vitamin D3) [Dialyvite Vitamin D] 5,000 units PO QAM 01/30/19 [History] Cyanocobalamin (Vitamin B-12) [Vitamin B-12] 500 mcg PO QAM 01/30/19 [History] Ferrous Sulfate [Iron] 325 mg PO QAM 01/30/19 [History] Multivitamin [Daily Multiple Vitamin] 1 tab PO QAM 01/30/19 [History] Ondansetron ODT [Zofran ODT] 4 mg PO Q6H PRN 01/30/19 [History] Pantoprazole Sodium [Protonix] 40 mg PO BID PRN 01/30/19 [History] Docusate Sodium [Colace] 100 mg PO BID PRN #30 capsule 02/02/19 [Rx] Lidocaine Patch [Lidoderm 5% patch] 1 each TP DAILY #10 adh..patch 02/02/19 [Rx] Ondansetron ODT [Zofran ODT] 4 mg SL Q4HR PRN #15 tab.rapdis 02/02/19 [Rx] OxyCODONE Immed Rel [Roxicodone 5 MG] 5 mg PO Q6HR PRN 7 Days #28 tablet 02/02/19 [Rx] Allergies/Adverse Reactions: Allergy/AdvReac Type Severity Reaction Status Date / Time prochlorperazine Allergy Anaphylaxis Verified 01/30/19 07:21 hydrochlorothiazide AdvReac Rash Verified 01/30/19 07:21 metoclopramide [From Reglan] AdvReac See Verified 01/30/19 07:21 Comments NSAIDS (Non-Steroidal AdvReac See Verified 01/31/19 10:36 Anti-Inflamma Comments Date of admission: 01/31/19 09:57 Primary care physician: Wilton Marcum MD Discharging clinician: Yessi James Anticipated date of discharge: 02/02/19 - Patient Status Disposition: Home, Self-Care Condition: Good Functional capacity at discharge: independent ambulation Overall status at discharge: patient is progressing back to baseline - Discharge Instructions Instructions: Open Herniorrhaphy (DC), Laparoscopic Herniorrhaphy (DC) Follow Up With: Wilton Marcum MD [Primary Care Provider] - Radha Maradiaga MD [Partnered Physician] - 02/12/19 2:50 pm Additional Instructions: No lifting more than 15 pounds for 7 weeks. Okay to take a shower in 24 hours. No tub baths or pools until after laine removed Okay to ride in the car wearing a seatbelt and climb steps. No driving until off narcotics for 24 hours and able to react safely Remove Steri-Strips in 1 week You can take 1,000mg of Tylenol every 4 hours, if this does not relieve your discomfort you can take the as needed Oxycodone up to one every 6 hours Do not take pain medicine/narcotics on an empty stomach it will likely cause nausea and possibly vomiting. If pain medication is too strong okay to break in half ok to use ice packs to area(s) of pain - on for 20 minutes, off for 20 minutes abdominal binder for comfort - Diet and Activity Activity: increase activity as tolerated
[2019-02-02 09:58] VITALS: BP 129/74
== END 2019-02-02 10:38 | disposition home or self-care (01) ==
LOC: SAMDAY 06:28 → 3ANU 06:28
PROVIDERS: ADMIT Surgery; ATTEND Surgery

== ENCOUNTER 2019-05-17 17:20 | Observation (INO) ==
[2019-05-17] MEDS ORDERED: Nitroglycerin 0.4 MG TAB.SUBL SL ONE (17:48)
[2019-05-17] MEDS ORDERED: Aspirin 81 MG TAB.CHEW ONE (17:48)
[2019-05-17 20:45] LABS: Activated Partial Thrombo Time 30.7 Seconds (26.0-36.0); INR 0.9
[2019-05-17 21:06] LABS: Basophils % 0.5 %; Eosinophils # 0.2 K/mcL (0.0-0.6); Eosinophils % 2.5 %; Hematocrit 39.5 % (35.3-44.9); Hemoglobin 13.1 g/dL (11.5-15.4); Lymphocytes # 2.7 K/mcL (0.6-4.6); Lymphocytes % 45.7 %; Mean Corpuscular HGB Conc 33.2 g/dL (31.6-35.5); Mean Corpuscular Hemoglobin 32.2 pg (28.0-33.3); Mean Corpuscular Volume 97.1 fL (83.0-100.0); Mean Platelet Volume 11.3 fL (9.4-12.4); Monocytes # 0.5 K/mcL (0.0-1.3); Monocytes % 8.4 %; Platelet Count 231 K/mcL (140-400); Red Blood Count 4.07 M/mcL (3.82-4.97); Red Cell Distribution Width 12.3 % (11.5-14.5)
[2019-05-17 21:07] LABS: Neutrophils # 0.2 K/mcL (1.6-8.9); Segmented Neutrophils % 2.6 %
[2019-05-17 21:37] LABS: BUN/Creatinine Ratio 34 (6-26); Blood Urea Nitrogen 20 mg/dL (8-23); Calcium 8.9 mg/dL (8.6-10.3); Carbon Dioxide 29 mEq/L (23-29); Chloride 103 mEq/L (98-107); Glucose 80 mg/dL (70-105); Magnesium 2.1 mg/dL (1.6-2.6); Potassium 3.9 mEq/L (3.5-5.1); Troponin I < 0.03 ng/mL (< 0.04); eGFR For African Americans > 60 (> 60); eGFR For Non-African Americans > 60 (> 60)
[2019-05-17 22:21] LABS: Osmolality,Calculated 290 (280-300); Sodium 139 mEq/L (136-145)
[2019-05-17] MEDS: rOPINIRole 1 MG TABLET PO SCH (22:30)
[2019-05-17] MEDS ORDERED: clonazePAM 1 MG TABLET PO PRN (23:32)
[2019-05-18] MEDS: Cholecalciferol (D-3) 1,000 UNIT (25MCG) TABLET PO SCH (08:22)
[2019-05-18] MEDS: Multivit/Ca/Min/Fe/FA 1 TAB TABLET PO SCH (08:22)
[2019-05-18] MEDS: Pantoprazole 40 MG VIAL IVP SCH ×2 (15:40→17:30)
[2019-05-18] MEDS: *HR* Heparin 5,000 UNIT/ML VIAL SQ SCH (17:30)
[2019-05-18] MEDS: rOPINIRole 1 MG TABLET PO SCH (20:34)
[2019-05-19] MEDS: Pantoprazole 40 MG VIAL IVP SCH (06:58)
[2019-05-19] MEDS: *HR* Heparin 5,000 UNIT/ML VIAL SQ SCH (06:58)
[2019-05-19] MEDS: Cholecalciferol (D-3) 1,000 UNIT (25MCG) TABLET PO SCH (08:44)
[2019-05-19] MEDS: Multivit/Ca/Min/Fe/FA 1 TAB TABLET PO SCH (08:44)
[2019-05-19 11:40] VITALS: BP 154/80
[2019-05-19] MEDS ORDERED: *HR* Propofol 200 MG/20 ML VIAL IVP ONE (14:05)
[2019-05-19] MEDS ORDERED: Lidocaine -MPF 2% 2 ML VIAL ONE (14:05)
[2019-05-19] MEDS ORDERED: Acetaminophen 325 MG TABLET PO PRN (16:27)
== END 2019-05-19 18:03 | disposition home or self-care (01) ==
LOC: EMEROOARM 17:20 → 3BNU 17:20 → SUATTDRO 20:51 → 3BNU 21:36
PROVIDERS: ADMIT Internal Medicine; ATTEND Internal Medicine
PROC: ENDOEBX (2019-05-19 14:45)

== ENCOUNTER 2019-09-05 14:03 | Observation (INO) ==
[2019-09-05] MEDS ORDERED: Ipratropium/Albuterol Neb 3 ML IH ONE (14:25)
[2019-09-05] MEDS ORDERED: Isovue-370 500 ML BOTTLE IVP ONE (14:43)
[2019-09-05 15:09] LABS: Basophils % 0.4 %; Eosinophils # 0.2 K/mcL (0.0-0.6); Eosinophils % 2.4 %; Hematocrit 40.6 % (35.3-44.9); Hemoglobin 13.2 g/dL (11.5-15.4); Immature Granulocytes % 0.3 % (0-4); Lymphocytes # 2.8 K/mcL (0.6-4.6); Lymphocytes % 41.1 %; Mean Corpuscular HGB Conc 32.5 g/dL (31.6-35.5); Mean Corpuscular Hemoglobin 31.7 pg (28.0-33.3); Mean Corpuscular Volume 97.4 fL (83.0-100.0); Mean Platelet Volume 10.3 fL (9.4-12.4); Monocytes # 0.6 K/mcL (0.0-1.3); Monocytes % 8.8 %; Neutrophils # 3.2 K/mcL (1.6-8.9); Platelet Count 259 K/mcL (140-400); Red Blood Count 4.17 M/mcL (3.82-4.97); Red Cell Distribution Width 13.4 % (11.5-14.5); White Blood Count 6.8 K/mcL (4.3-11.1)
[2019-09-05 16:14] LABS: BUN/Creatinine Ratio 31 (6-26); Blood Urea Nitrogen 21 mg/dL (8-23); Calcium 9.3 mg/dL (8.6-10.3); Carbon Dioxide 30 mEq/L (23-29); Chloride 102 mEq/L (98-107); Glucose 97 mg/dL (70-105); Osmolality,Calculated 297 (280-300); Potassium 3.9 mEq/L (3.5-5.1); Sodium 142 mEq/L (136-145); eGFR For African Americans > 60 (> 60); eGFR For Non-African Americans > 60 (> 60)
[2019-09-05] MEDS ORDERED: methylPREDNISolone 125 MG/2 ML VIAL IVP ONE (17:00)
[2019-09-05] MEDS ORDERED: Aspirin 325 MG TABLET PO ONE (17:03)
[2019-09-05] MEDS ORDERED: Ondansetron ODT 4 MG TAB.RAPDIS SL PRN (17:25)
[2019-09-05] MEDS ORDERED: Naloxone 0.4 MG/ML INJ IVP PRN (17:25)
[2019-09-05] MEDS ORDERED: clonazePAM 1 MG TABLET PO PRN (18:25)
[2019-09-05] MEDS ORDERED: tiZANidine 4 MG TABLET PO PRN (18:25)
[2019-09-05] MEDS ORDERED: TIZANIDINE HCL 2 MG PO PRN (18:25)
[2019-09-05] MEDS ORDERED: Ondansetron 4 MG/2 ML VIAL IVP ONE (18:53)
[2019-09-05] MEDS ORDERED: Ondansetron ODT 4 MG TAB.RAPDIS SL SCH (20:00)
[2019-09-05] MEDS: QUEtiapine Fumarate 100 MG TABLET PO SCH (20:38)
[2019-09-05] MEDS: rOPINIRole 1 MG TABLET PO SCH (20:38)
[2019-09-05] MEDS: Ipratropium/Albuterol Neb 3 ML IH SCH (22:02)
[2019-09-05] MEDS ORDERED: Furosemide 20 MG/2 ML VIAL IVP ONE (22:55)
[2019-09-06] MEDS: Ipratropium/Albuterol Neb 3 ML IH SCH ×6 (00:49→20:07)
[2019-09-06 06:09] LABS: Basophils % 0.3 %; Hematocrit 39.1 % (35.3-44.9); Immature Granulocytes % 0.5 % (0-4); Lymphocytes # 0.5 K/mcL (0.6-4.6); Mean Corpuscular HGB Conc 33.2 g/dL (31.6-35.5); Mean Corpuscular Volume 96.3 fL (83.0-100.0); Mean Platelet Volume 10.8 fL (9.4-12.4); Monocytes # 0.1 K/mcL (0.0-1.3); Monocytes % 1.6 %; Neutrophils # 3.3 K/mcL (1.6-8.9); Platelet Count 243 K/mcL (140-400); Red Blood Count 4.06 M/mcL (3.82-4.97); Red Cell Distribution Width 13.5 % (11.5-14.5); Segmented Neutrophils % 84.6 %; White Blood Count 3.8 K/mcL (4.3-11.1)
[2019-09-06 06:29] LABS: BUN/Creatinine Ratio 25 (6-26); Blood Urea Nitrogen 23 mg/dL (8-23); Calcium 9.2 mg/dL (8.6-10.3); Carbon Dioxide 24 mEq/L (23-29); Chloride 101 mEq/L (98-107); Glucose 266 mg/dL (70-105); Osmolality,Calculated 307 (280-300); Potassium 3.2 mEq/L (3.5-5.1); Sodium 142 mEq/L (136-145); eGFR For African Americans > 60 (> 60); eGFR For Non-African Americans > 60 (> 60)
[2019-09-06] MEDS ORDERED: Furosemide 40 MG/4 ML VIAL IVP ONE (12:29)
[2019-09-06] MEDS ORDERED: Lisinopril 20 MG TABLET PO SCH (18:30)
[2019-09-06] MEDS: rOPINIRole 1 MG TABLET PO SCH (20:27)
[2019-09-06] MEDS: QUEtiapine Fumarate 100 MG TABLET PO SCH (20:31)
[2019-09-06] MEDS: *HR* HYDROcodone/Acet 5/325 mg TABLET PO PRN (21:22)
[2019-09-07] MEDS: Ipratropium/Albuterol Neb 3 ML IH SCH ×4 (00:02→11:28)
[2019-09-07] MEDS: *HR* HYDROcodone/Acet 5/325 mg TABLET PO PRN ×2 (03:22→11:27)
[2019-09-07 07:03] LABS: BUN/Creatinine Ratio 45 (6-26); Blood Urea Nitrogen 30 mg/dL (8-23); Calcium 9.4 mg/dL (8.6-10.3); Carbon Dioxide 30 mEq/L (23-29); Chloride 108 mEq/L (98-107); Glucose 100 mg/dL (70-105); Magnesium 2.2 mg/dL (1.6-2.6); Osmolality,Calculated 304 (280-300); Potassium 4.5 mEq/L (3.5-5.1); Sodium 144 mEq/L (136-145); eGFR For African Americans > 60 (> 60); eGFR For Non-African Americans > 60 (> 60)
[2019-09-07] MEDS: Lisinopril 20 MG TABLET PO SCH ×2 (08:22→08:24)
[2019-09-07] MEDS ORDERED: Furosemide 20 MG TABLET PO SCH (09:00)
[2019-09-07 09:53] VITALS: BP 160/64
== END 2019-09-07 11:54 | disposition home or self-care (01) ==
LOC: EMEROOARM 14:03 → 3BNU 14:03
PROVIDERS: ADMIT Pharmacist; ATTEND Pharmacist

== ENCOUNTER 2019-10-10 12:22 | Observation (INO) ==
[2019-10-10] MEDS ORDERED: 0.9 % Sodium Chloride 2,000 ML ONE (12:29)
[2019-10-10] MEDS ORDERED: 0.9 % Sodium Chloride 1,000 ML IVC ONE (12:32)
[2019-10-10 12:47] LABS: Basophils % 0.6 %; Eosinophils # 0.4 K/mcL (0.0-0.6); Eosinophils % 6.6 %; Hematocrit 36.9 % (35.3-44.9); Hemoglobin 12.3 g/dL (11.5-15.4); Lymphocytes # 2.4 K/mcL (0.6-4.6); Lymphocytes % 43.9 %; Mean Corpuscular HGB Conc 33.3 g/dL (31.6-35.5); Mean Corpuscular Hemoglobin 32.4 pg (28.0-33.3); Mean Corpuscular Volume 97.1 fL (83.0-100.0); Mean Platelet Volume 11.6 fL (9.4-12.4); Monocytes # 0.5 K/mcL (0.0-1.3); Neutrophils # 2.2 K/mcL (1.6-8.9); Platelet Count 186 K/mcL (140-400); Red Cell Distribution Width 12.9 % (11.5-14.5); Segmented Neutrophils % 39.9 %; White Blood Count 5.5 K/mcL (4.3-11.1)
[2019-10-10 13:15] LABS: Bilirubin,Urine Negative (Negative); Blood,Urine Negative (Negative); Clarity,Urine Clear (Clear); Color,Urine Yellow (Yellow); Glucose,Urine (UA) Normal (Normal); Ketones,Urine Negative (Negative); Leukocyte Esterase,Urine Negative (Negative); Nitrite,Urine Negative (Negative); PH,Urine 5.5 pH Units (5.0-8.0); Protein,Urine Negative (Neg-Trace); Specific Gravity,Urine 1.013 (1.010-1.025); Urobilinogen,Urine Normal (Normal)
[2019-10-10 13:50] LABS: Alanine Aminotransferase 49 Units/L (7-52); Albumin/Globulin Ratio 1.6 (1.1-2.2); Alkaline Phosphatase 80 Units/L (34-104); Aspartate Amino Transferase 68 Units/L (13-39); BUN/Creatinine Ratio 19 (6-26); Bilirubin,Total 0.5 mg/dL (0.3-1.0); Blood Urea Nitrogen 21 mg/dL (8-23); Calcium 7.6 mg/dL (8.6-10.3); Carbon Dioxide 27 mEq/L (23-29); Chloride 110 mEq/L (98-107); Globulin 1.9 g/dL (2.4-3.5); Glucose 71 mg/dL (70-105); Osmolality,Calculated 291 (280-300); Potassium 3.9 mEq/L (3.5-5.1); Sodium 140 mEq/L (136-145); Total Protein 4.9 g/dL (6.4-8.9); Troponin I < 0.03 ng/mL (< 0.04); eGFR For African Americans 58 (> 60); eGFR For Non-African Americans 48 (> 60)
[2019-10-10] MEDS ORDERED: Naloxone 0.4 MG/ML INJ IVP PRN (15:02)
[2019-10-10] MEDS ORDERED: Ringers Solution, Lactated 1,000 ML IVC SCH (15:15)
[2019-10-10] MEDS: *HR* Heparin 5,000 UNIT/ML VIAL SQ SCH (17:16)
[2019-10-10] MEDS: Ringers Solution, Lactated 1,000 ML IVC SCH (17:17)
[2019-10-10] MEDS: clonazePAM 1 MG TABLET PO SCH (19:59)
[2019-10-10] MEDS: *HR* HYDROcodone/Acet 5/325 mg TABLET PO PRN (20:12)
[2019-10-10] MEDS ORDERED: *HR* LORazepam 0.5 MG TABLET PO PRN (21:14)
[2019-10-10] MEDS: rOPINIRole 1 MG TABLET PO SCH (22:50)
[2019-10-10] MEDS ORDERED: Ondansetron 4 MG/2 ML VIAL IVP ONE (23:21)
[2019-10-10] MEDS: Acetaminophen 325 MG TABLET PO PRN (23:56)
[2019-10-11 00:34] LABS: Adenovirus Not Detected (Not Detect); Bordetella Pertussis Not Detected (Not Detect); Chlamydophila pneumoniae Not Detected (Not Detect); Coronavirus 229E Not Detected (Not Detect); Coronavirus HKU1 Not Detected (Not Detect); Coronavirus NL63 Not Detected (Not Detect); Coronavirus OC43 Not Detected (Not Detect); Human Metapneumovirus Not Detected (Not Detect); Human Rhinovirus/Enterovirus Not Detected (Not Detect); Influenza A Subtype 2009 H1 Not Detected (Not Detect); Influenza B Not Detected (Not Detect); Mycoplasma pneumoniae Not Detected (Not Detect); Parainfluenza Virus 1 Not Detected (Not Detect); Parainfluenza Virus 2 Not Detected (Not Detect); Parainfluenza Virus 3 Not Detected (Not Detect); Parainfluenza Virus 4 Not Detected (Not Detect); Respiratory Syncytial Virus Not Detected (Not Detect)
[2019-10-11 01:33] LABS: Basophils % 0.4 %; Eosinophils # 0.4 K/mcL (0.0-0.6); Eosinophils % 7.7 %; Hematocrit 36.7 % (35.3-44.9); Hemoglobin 12.1 g/dL (11.5-15.4); Immature Granulocytes % 0.2 % (0-4); Lymphocytes # 1.6 K/mcL (0.6-4.6); Lymphocytes % 34.5 %; Mean Corpuscular Volume 94.1 fL (83.0-100.0); Mean Platelet Volume 11.6 fL (9.4-12.4); Monocytes # 0.4 K/mcL (0.0-1.3); Monocytes % 8.6 %; Neutrophils # 2.3 K/mcL (1.6-8.9); Platelet Count 158 K/mcL (140-400); Segmented Neutrophils % 48.6 %; White Blood Count 4.7 K/mcL (4.3-11.1)
[2019-10-11 01:53] LABS: BUN/Creatinine Ratio 22 (6-26); Blood Urea Nitrogen 18 mg/dL (8-23); Calcium 8.7 mg/dL (8.6-10.3); Carbon Dioxide 29 mEq/L (23-29); Chloride 106 mEq/L (98-107); Glucose 92 mg/dL (70-105); Magnesium 1.7 mg/dL (1.6-2.6); Osmolality,Calculated 290 (280-300); Phosphorous 3.8 mg/dL (2.7-4.5); Potassium 3.4 mEq/L (3.5-5.1); Sodium 139 mEq/L (136-145); eGFR For African Americans > 60 (> 60); eGFR For Non-African Americans > 60 (> 60)
[2019-10-11] MEDS: Ringers Solution, Lactated 1,000 ML IVC SCH (04:19)
[2019-10-11] MEDS: *HR* Heparin 5,000 UNIT/ML VIAL SQ SCH ×2 (04:20→16:32)
[2019-10-11] MEDS: *HR* HYDROcodone/Acet 5/325 mg TABLET PO PRN (04:56)
[2019-10-11] MEDS ORDERED: tiZANidine 4 MG TABLET PO PRN (07:59)
[2019-10-11] MEDS ORDERED: Ondansetron ODT 4 MG TAB.RAPDIS SL PRN (07:59)
[2019-10-11] MEDS: Multivit/Ca/Min/Fe/FA 1 TAB TABLET PO SCH (08:52)
[2019-10-11] MEDS: Cyanocobalamin (B-12) 1,000 MCG TABLET PO SCH (08:52)
[2019-10-11] MEDS: Cholecalciferol (D-3) 1,000 UNIT (25MCG) TABLET PO SCH (08:53)
[2019-10-11] MEDS ORDERED: Furosemide 20 MG TABLET PO SCH (09:00)
[2019-10-11] MEDS: Acetaminophen 325 MG TABLET PO PRN (14:12)
[2019-10-11] MEDS: amLODIPine 5 MG TABLET PO SCH (16:32)
[2019-10-11] MEDS: lisinopriL 10 MG TABLET PO SCH (16:32)
[2019-10-11] MEDS: clonazePAM 1 MG TABLET PO SCH (20:28)
[2019-10-11] MEDS: rOPINIRole 1 MG TABLET PO SCH (20:29)
[2019-10-11] MEDS ORDERED: QUEtiapine Fumarate 100 MG TABLET PO SCH (21:00)
[2019-10-12] MEDS ORDERED: *HR* LORazepam 0.5 MG TABLET PO ONE (00:50)
[2019-10-12 01:53] LABS: BUN/Creatinine Ratio 26 (6-26); Blood Urea Nitrogen 18 mg/dL (8-23); Calcium 9.6 mg/dL (8.6-10.3); Carbon Dioxide 31 mEq/L (23-29); Chloride 102 mEq/L (98-107); Glucose 97 mg/dL (70-105); Osmolality,Calculated 292 (280-300); Potassium 3.8 mEq/L (3.5-5.1); Sodium 140 mEq/L (136-145); eGFR For African Americans > 60 (> 60); eGFR For Non-African Americans > 60 (> 60)
[2019-10-12] MEDS: *HR* Heparin 5,000 UNIT/ML VIAL SQ SCH (05:34)
[2019-10-12 06:30] VITALS: BP 112/67
[2019-10-12] MEDS: lisinopriL 10 MG TABLET PO SCH (07:25)
[2019-10-12] MEDS: Cyanocobalamin (B-12) 1,000 MCG TABLET PO SCH (07:25)
[2019-10-12] MEDS: amLODIPine 5 MG TABLET PO SCH (07:25)
[2019-10-12] MEDS: Cholecalciferol (D-3) 1,000 UNIT (25MCG) TABLET PO SCH (07:25)
[2019-10-12] MEDS: Multivit/Ca/Min/Fe/FA 1 TAB TABLET PO SCH (07:25)
== END 2019-10-12 10:58 | disposition home or self-care (01) ==
LOC: EMEROOARM 12:22 → 3BNU 12:22
PROVIDERS: ADMIT Internal Medicine; ATTEND Internal Medicine

== ENCOUNTER 2020-03-29 06:35 | Inpatient (IN) ==
[2020-03-29] MEDS ORDERED: 0.9 % Sodium Chloride 1,000 ML IVC ONE (07:08)
[2020-03-29] MEDS ORDERED: Ondansetron 4 MG/2 ML VIAL IVP ONE (07:08)
[2020-03-29] MEDS ORDERED: Isovue-370 500 ML BOTTLE PO ONE (07:25)
[2020-03-29 07:44] LABS: Basophils % 0.5 %; Eosinophils # 0.2 K/mcL (0.0-0.6); Hematocrit 33.6 % (35.3-44.9); Immature Granulocytes % 0.3 % (0-4); Lymphocytes # 1.9 K/mcL (0.6-4.6); Lymphocytes % 48.5 %; Mean Corpuscular HGB Conc 31.3 g/dL (31.6-35.5); Mean Corpuscular Hemoglobin 32.4 pg (28.0-33.3); Mean Corpuscular Volume 103.7 fL (83.0-100.0); Mean Platelet Volume 11.6 fL (9.4-12.4); Monocytes # 0.5 K/mcL (0.0-1.3); Monocytes % 11.3 %; Neutrophils # 1.3 K/mcL (1.6-8.9); Platelet Count 183 K/mcL (140-400); Red Blood Count 3.24 M/mcL (3.82-4.97); Red Cell Distribution Width 13.6 % (11.5-14.5); Segmented Neutrophils % 33.4 %
[2020-03-29 07:45] LABS: Hemoglobin 10.5 g/dL (11.5-15.4)
[2020-03-29 07:59] LABS: Alanine Aminotransferase 17 Units/L (7-52); Albumin 3.6 g/dL (3.5-5.7); Albumin/Globulin Ratio 1.7 (1.1-2.2); Alkaline Phosphatase 50 Units/L (34-104); Aspartate Amino Transferase 31 Units/L (13-39); BUN/Creatinine Ratio 33 (6-26); Bilirubin,Total 0.3 mg/dL (0.3-1.0); Blood Urea Nitrogen 26 mg/dL (8-23); Calcium 8.6 mg/dL (8.6-10.3); Carbon Dioxide 29 mEq/L (23-29); Chloride 106 mEq/L (98-107); Ethanol < 10 mg/dL (Less than 10); Globulin 2.1 g/dL (2.4-3.5); Glucose 92 mg/dL (70-105); Lipase 15 Units/L (11-82); Osmolality,Calculated 290 (280-300); Potassium 4.6 mEq/L (3.5-5.1); Sodium 138 mEq/L (136-145); Total Protein 5.7 g/dL (6.4-8.9); eGFR For African Americans > 60 (> 60); eGFR For Non-African Americans > 60 (> 60)
[2020-03-29 08:00] LABS: Troponin I < 0.03 ng/mL (< 0.04)
[2020-03-29 08:11] LABS: Bilirubin,Urine Negative (Negative); Blood,Urine Negative (Negative); Clarity,Urine Clear (Clear); Color,Urine Light-Yellow (Yellow); Glucose,Urine (UA) Normal (Normal); Hyaline Casts,Urine Few per lpf (None Seen); Ketones,Urine Negative (Negative); Leukocyte Esterase,Urine Moderate (Negative); Nitrite,Urine Negative (Negative); Protein,Urine Trace mg/dL (Neg-Trace); RBC,Urine 0-3 per hpf (0-3); Urobilinogen,Urine Normal (Normal)
[2020-03-29 08:16] LABS: Amphetamine Screen,Urine Negative ng/mL (Cutoff=1000); Barbiturate Screen,Urine Negative ng/mL (Cutoff=200); Benzodiazepines Screen,Urine Positive ng/mL (Cutoff=200); Cannabinoid Screen,Urine Negative ng/mL (Cutoff = 50); Cocaine Screen,Urine Negative ng/mL (Cutoff= 300); Opiate Screen,Urine Positive ng/mL (Cutoff=300); Phencyclidine Screen,Urine Negative ng/mL (Cutoff=25)
[2020-03-29] MEDS ORDERED: *HR* FentaNYL (PF) 100 MCG/2 ML VIAL IVP ONE (10:27)
[2020-03-29] MEDS ORDERED: MetroNIDAZOLE 500 MG/100 ML 500 MG/100 ML BAG IVPB ONE (10:27)
[2020-03-29] MEDS ORDERED: Naloxone 0.4 MG/ML INJ IVP PRN (11:22)
[2020-03-29] MEDS: Ringers Solution, Lactated 1,000 ML IVC SCH ×2 (13:23→22:33)
[2020-03-29] MEDS ORDERED: Orphenadrine 60 MG/2 ML VIAL IVP ONE (14:19)
[2020-03-29] MEDS: Ketorolac 30 MG/ML VIAL IVP PRN ×2 (14:31→21:43)
[2020-03-29] MEDS: *HR* Heparin 5,000 UNIT/ML VIAL SQ SCH (18:12)
[2020-03-29 19:26] LABS: Adenovirus Not Detected (Not Detect); Bordetella Pertussis Not Detected (Not Detect); Chlamydophila pneumoniae Not Detected (Not Detect); Coronavirus 229E Not Detected (Not Detect); Coronavirus HKU1 Not Detected (Not Detect); Coronavirus NL63 Not Detected (Not Detect); Coronavirus OC43 Not Detected (Not Detect); Human Metapneumovirus Not Detected (Not Detect); Human Rhinovirus/Enterovirus Not Detected (Not Detect); Influenza A Subtype 2009 H1 Not Detected (Not Detect); Influenza B Not Detected (Not Detect); Mycoplasma pneumoniae Not Detected (Not Detect); Parainfluenza Virus 1 Not Detected (Not Detect); Parainfluenza Virus 2 Not Detected (Not Detect); Parainfluenza Virus 3 Not Detected (Not Detect); Parainfluenza Virus 4 Not Detected (Not Detect); Respiratory Syncytial Virus Not Detected (Not Detect); SARS-CoV-2 Not Detected (Not Detect)
[2020-03-30] MEDS: *HR* Heparin 5,000 UNIT/ML VIAL SQ SCH ×2 (05:13→17:25)
[2020-03-30] MEDS ORDERED: Dextrose Gel 15 GM/37.5 ML TUBE PO PRN (06:10)
[2020-03-30] MEDS ORDERED: *HR* Dextrose 50 % in Water (Vial) 50 ML VIAL IVP PRN (06:10)
[2020-03-30] MEDS ORDERED: Dextrose Gel 15 GM/37.5 ML TUBE PO ONE (06:15)
[2020-03-30 06:23] LABS: Basophils % 0.7 %; Eosinophils # 0.2 K/mcL (0.0-0.6); Eosinophils % 6.8 %; Hematocrit 32.3 % (35.3-44.9); Hemoglobin 10.5 g/dL (11.5-15.4); Lymphocytes # 1.7 K/mcL (0.6-4.6); Lymphocytes % 56.8 %; Mean Corpuscular HGB Conc 32.5 g/dL (31.6-35.5); Mean Corpuscular Volume 101.6 fL (83.0-100.0); Mean Platelet Volume 11.4 fL (9.4-12.4); Monocytes # 0.3 K/mcL (0.0-1.3); Neutrophils # 0.7 K/mcL (1.6-8.9); Platelet Count 150 K/mcL (140-400); Red Blood Count 3.18 M/mcL (3.82-4.97); Red Cell Distribution Width 13.6 % (11.5-14.5); Segmented Neutrophils % 24.7 %; White Blood Count 2.9 K/mcL (4.3-11.1)
[2020-03-30 06:46] LABS: BUN/Creatinine Ratio 26 (6-26); Blood Urea Nitrogen 16 mg/dL (8-23); Calcium 8.4 mg/dL (8.6-10.3); Carbon Dioxide 24 mEq/L (23-29); Chloride 108 mEq/L (98-107); Glucose 68 mg/dL (70-105); Osmolality,Calculated 287 (280-300); Potassium 4.1 mEq/L (3.5-5.1); Sodium 139 mEq/L (136-145); eGFR For African Americans > 60 (> 60); eGFR For Non-African Americans > 60 (> 60)
[2020-03-30] MEDS: Ringers Solution, Lactated 1,000 ML IVC SCH (08:29)
[2020-03-30] MEDS ORDERED: cefTRIAXone 1,000 MG in Water for inj. (sterile) 10 ML IVP SCH (09:00)
[2020-03-30] MEDS: Ondansetron 4 MG/2 ML VIAL IVP PRN (10:07)
[2020-03-30] MEDS: Piperacillin/Tazobactam 3.375 GM in 0.9 % Sodium Chloride Mini Bag 100 ML IVPB SCH (17:26)
[2020-03-30] MEDS: rOPINIRole 1 MG TABLET PO SCH (20:10)
[2020-03-30] MEDS: QUEtiapine Fumarate 100 MG TABLET PO SCH (20:10)
[2020-03-30] MEDS ORDERED: clonazePAM 1 MG TABLET PO SCH (21:00)
[2020-03-31] MEDS: Ringers Solution, Lactated 1,000 ML IVC SCH ×3 (00:17→19:58)
[2020-03-31] MEDS: Piperacillin/Tazobactam 3.375 GM in 0.9 % Sodium Chloride Mini Bag 100 ML IVPB SCH ×3 (00:19→17:01)
[2020-03-31 03:05] LABS: Hematocrit 31.1 % (35.3-44.9); Hemoglobin 9.8 g/dL (11.5-15.4); Mean Corpuscular HGB Conc 31.5 g/dL (31.6-35.5); Mean Corpuscular Hemoglobin 31.9 pg (28.0-33.3); Mean Corpuscular Volume 101.3 fL (83.0-100.0); Mean Platelet Volume 11.3 fL (9.4-12.4); Platelet Count 150 K/mcL (140-400); Red Blood Count 3.07 M/mcL (3.82-4.97); Red Cell Distribution Width 13.6 % (11.5-14.5); White Blood Count 3.2 K/mcL (4.3-11.1)
[2020-03-31 03:21] LABS: BUN/Creatinine Ratio 20 (6-26); Blood Urea Nitrogen 12 mg/dL (8-23); Calcium 7.9 mg/dL (8.6-10.3); Carbon Dioxide 27 mEq/L (23-29); Chloride 110 mEq/L (98-107); Glucose 96 mg/dL (70-105); Osmolality,Calculated 292 (280-300); Potassium 3.7 mEq/L (3.5-5.1); Sodium 141 mEq/L (136-145); eGFR For African Americans > 60 (> 60); eGFR For Non-African Americans > 60 (> 60)
[2020-03-31] MEDS ORDERED: Acetaminophen 325 MG TABLET PO ONE (05:41)
[2020-03-31] MEDS: *HR* Heparin 5,000 UNIT/ML VIAL SQ SCH ×2 (05:51→17:00)
[2020-03-31] MEDS ORDERED: amLODIPine 5 MG TABLET PO SCH (09:00)
[2020-03-31] MEDS ORDERED: Metoprolol XL (24 HR) Succ 50 MG TAB.ER.24H PO SCH (09:00)
[2020-03-31] MEDS: rOPINIRole 1 MG TABLET PO SCH (20:24)
[2020-03-31] MEDS: QUEtiapine Fumarate 100 MG TABLET PO SCH (20:26)
[2020-03-31] MEDS ORDERED: Acetaminophen IV 1,000 MG/100 ML BAG IVPB ONE (22:32)
[2020-04-01] MEDS: Piperacillin/Tazobactam 3.375 GM in 0.9 % Sodium Chloride Mini Bag 100 ML IVPB SCH ×2 (00:46→08:16)
[2020-04-01] MEDS: Ringers Solution, Lactated 1,000 ML IVC SCH (03:25)
[2020-04-01] MEDS: *HR* Heparin 5,000 UNIT/ML VIAL SQ SCH (04:54)
[2020-04-01 06:15] LABS: Hemoglobin 11.3 g/dL (11.5-15.4); Mean Corpuscular HGB Conc 32.3 g/dL (31.6-35.5); Mean Corpuscular Hemoglobin 32.6 pg (28.0-33.3); Mean Corpuscular Volume 100.9 fL (83.0-100.0); Mean Platelet Volume 11.3 fL (9.4-12.4); Platelet Count 182 K/mcL (140-400); Red Blood Count 3.47 M/mcL (3.82-4.97); Red Cell Distribution Width 13.3 % (11.5-14.5); White Blood Count 4.3 K/mcL (4.3-11.1)
[2020-04-01 08:03] LABS: BUN/Creatinine Ratio 11 (6-26); Blood Urea Nitrogen 6 mg/dL (8-23); Calcium 8.9 mg/dL (8.6-10.3); Carbon Dioxide 29 mEq/L (23-29); Chloride 106 mEq/L (98-107); Glucose 78 mg/dL (70-105); Osmolality,Calculated 288 (280-300); Potassium 3.7 mEq/L (3.5-5.1); Sodium 141 mEq/L (136-145); eGFR For African Americans > 60 (> 60); eGFR For Non-African Americans > 60 (> 60)
[2020-04-01] MEDS ORDERED: Metoprolol XL (24 HR) Succ 25 MG TAB.ER.24H PO ONE (11:39)
[2020-04-01] MEDS ORDERED: amLODIPine 5 MG TABLET PO SCH (11:45)
[2020-04-01] MEDS: Ondansetron 4 MG/2 ML VIAL IVP PRN (13:24)
[2020-04-01 15:10] VITALS: BP 178/91
== END 2020-04-01 16:22 | disposition home or self-care (01) | DRG 388 ==
LOC: EMEROOARM 06:35 → 3ANU 06:35 → SUATTDRO 10:18 → 3ANU 11:17 → SUATTDRO 03-30 16:30
PROVIDERS: ADMIT Internal Medicine; ATTEND Internal Medicine

== ENCOUNTER 2020-07-12 12:08 | Observation (INO) ==
[2020-07-12] MEDS ORDERED: 0.9 % Sodium Chloride 1,000 ML IVC ONE (13:02)
[2020-07-12 14:12] LABS: Basophils % 0.5 %; Eosinophils # 0.2 K/mcL (0.0-0.6); Eosinophils % 5.1 %; Hematocrit 36.6 % (35.3-44.9); Hemoglobin 11.7 g/dL (11.5-15.4); Lymphocytes # 1.7 K/mcL (0.6-4.6); Lymphocytes % 44.1 %; Mean Corpuscular Hemoglobin 31.9 pg (28.0-33.3); Mean Corpuscular Volume 99.7 fL (83.0-100.0); Mean Platelet Volume 11.6 fL (9.4-12.4); Monocytes # 0.4 K/mcL (0.0-1.3); Monocytes % 9.4 %; Neutrophils # 1.6 K/mcL (1.6-8.9); Platelet Count 157 K/mcL (140-400); Red Blood Count 3.67 M/mcL (3.82-4.97); Red Cell Distribution Width 13.2 % (11.5-14.5); Segmented Neutrophils % 40.9 %
[2020-07-12 14:16] LABS: INR 0.9; Prothrombin Time 10.9 Seconds (9.4-12.1)
[2020-07-12 14:18] LABS: Activated Partial Thrombo Time 28.8 Seconds (26.0-36.0)
[2020-07-12 14:26] LABS: Alanine Aminotransferase 26 Units/L (7-52); Albumin 3.6 g/dL (3.5-5.7); Albumin/Globulin Ratio 1.6 (1.1-2.2); Alkaline Phosphatase 79 Units/L (34-104); Aspartate Amino Transferase 24 Units/L (13-39); BUN/Creatinine Ratio 25 (6-26); Bilirubin,Direct 0.1 mg/dL (0.0-0.2); Bilirubin,Indirect 0.3 mg/dL (0.0-1.0); Bilirubin,Total 0.4 mg/dL (0.3-1.0); Blood Urea Nitrogen 15 mg/dL (8-23); C-Reactive Protein 29 mg/L (Less than 10); Calcium 8.6 mg/dL (8.6-10.3); Carbon Dioxide 25 mEq/L (23-29); Chloride 109 mEq/L (98-107); Globulin 2.3 g/dL (2.4-3.5); Glucose 82 mg/dL (70-105); Lactate Dehydrogenase 157 Units/L (140-271); Magnesium 1.5 mg/dL (1.6-2.6); Osmolality,Calculated 290 (280-300); Phosphorous 3.5 mg/dL (2.7-4.5); Potassium 4.1 mEq/L (3.5-5.1); Sodium 140 mEq/L (136-145); Total Protein 5.9 g/dL (6.4-8.9); Troponin I < 0.03 ng/mL (< 0.04); eGFR For African Americans > 60 (> 60); eGFR For Non-African Americans > 60 (> 60)
[2020-07-12 14:43] LABS: Ferritin 144 ng/mL (10-120)
[2020-07-12 14:45] LABS: Bilirubin,Urine Negative (Negative); Blood,Urine Negative (Negative); Clarity,Urine Clear (Clear); Color,Urine Light-Yellow (Yellow); Glucose,Urine (UA) Normal (Normal); Ketones,Urine Negative (Negative); Leukocyte Esterase,Urine Negative (Negative); Nitrite,Urine Negative (Negative); Protein,Urine Negative (Neg-Trace); Specific Gravity,Urine 1.015 (1.010-1.025); Urobilinogen,Urine Normal (Normal)
[2020-07-12] MEDS ORDERED: Dexamethasone 4 MG/ML VIAL IVP ONE (14:51)
[2020-07-12] MEDS ORDERED: Naloxone 0.4 MG/ML INJ IVP PRN (17:13)
[2020-07-12] MEDS ORDERED: Acetaminophen 325 MG TABLET PO PRN (17:13)
[2020-07-12] MEDS ORDERED: Ondansetron ODT 4 MG TAB.RAPDIS SL PRN (17:13)
[2020-07-12] MEDS ORDERED: Furosemide 20 MG/2 ML VIAL IVP ONE (17:56)
[2020-07-12] MEDS: *HR* HYDROcodone/Acet 5/325 mg TABLET PO PRN (19:41)
[2020-07-12] MEDS ORDERED: QUEtiapine Fumarate 100 MG TABLET PO SCH (21:00)
[2020-07-12] MEDS ORDERED: rOPINIRole 1 MG TABLET PO SCH (21:00)
[2020-07-12] MEDS ORDERED: Haloperidol Lactate 5 MG/ML VIAL IVP ONE (21:13)
[2020-07-13 01:22] LABS: Hematocrit 36.2 % (35.3-44.9); Hemoglobin 11.6 g/dL (11.5-15.4); Immature Granulocytes % 0.4 % (0-4); Lymphocytes # 0.7 K/mcL (0.6-4.6); Lymphocytes % 23.9 %; Mean Corpuscular Volume 96.8 fL (83.0-100.0); Mean Platelet Volume 11.5 fL (9.4-12.4); Monocytes % 1.4 %; Neutrophils # 2.1 K/mcL (1.6-8.9); Platelet Count 160 K/mcL (140-400); Red Blood Count 3.74 M/mcL (3.82-4.97); Red Cell Distribution Width 12.9 % (11.5-14.5); Segmented Neutrophils % 74.3 %; White Blood Count 2.8 K/mcL (4.3-11.1)
[2020-07-13 01:48] LABS: BUN/Creatinine Ratio 25 (6-26); Blood Urea Nitrogen 14 mg/dL (8-23); Calcium 8.8 mg/dL (8.6-10.3); Carbon Dioxide 24 mEq/L (23-29); Chloride 106 mEq/L (98-107); Glucose 184 mg/dL (70-105); Magnesium 1.7 mg/dL (1.6-2.6); Osmolality,Calculated 291 (280-300); Potassium 3.9 mEq/L (3.5-5.1); Sodium 138 mEq/L (136-145); eGFR For African Americans > 60 (> 60); eGFR For Non-African Americans > 60 (> 60)
[2020-07-13] MEDS ORDERED: *HR* Enoxaparin 40 MG/0.4 ML SYRINGE SQ SCH (06:00)
[2020-07-13] MEDS ORDERED: Dexamethasone 4 MG/ML VIAL IVP ONE (08:04)
[2020-07-13] MEDS ORDERED: amLODIPine 5 MG TABLET PO SCH (09:00)
[2020-07-13] MEDS ORDERED: Metoprolol XL (24 HR) Succ 50 MG TAB.ER.24H PO SCH (09:00)
[2020-07-13] MEDS: *HR* HYDROcodone/Acet 5/325 mg TABLET PO PRN (12:24)
[2020-07-13 15:41] VITALS: BP 174/86
== END 2020-07-13 18:04 | disposition home or self-care (01) ==
LOC: EMEROOARM 12:08 → 3BNU 12:08 → SUATTDRO 17:24 → 3BNU 17:50
PROVIDERS: ADMIT Student in an Organized Health Care Education/Training Program; ATTEND Internal Medicine

== ENCOUNTER 2020-08-02 22:36 | Observation (INO) ==
[2020-08-02 23:17] LABS: Basophils % 0.7 %; Eosinophils # 0.1 K/mcL (0.0-0.6); Eosinophils % 1.2 %; Hematocrit 41.3 % (35.3-44.9); Hemoglobin 13.2 g/dL (11.5-15.4); Immature Granulocytes % 0.2 % (0-4); Lymphocytes # 1.6 K/mcL (0.6-4.6); Lymphocytes % 38.9 %; Mean Corpuscular Hemoglobin 30.8 pg (28.0-33.3); Mean Corpuscular Volume 96.5 fL (83.0-100.0); Mean Platelet Volume 11.2 fL (9.4-12.4); Monocytes # 0.4 K/mcL (0.0-1.3); Monocytes % 9.2 %; Neutrophils # 2.1 K/mcL (1.6-8.9); Platelet Count 222 K/mcL (140-400); Red Blood Count 4.28 M/mcL (3.82-4.97); Red Cell Distribution Width 13.6 % (11.5-14.5); Segmented Neutrophils % 49.8 %; White Blood Count 4.2 K/mcL (4.3-11.1)
[2020-08-02 23:20] LABS: INR 0.9; Prothrombin Time 10.4 Seconds (9.4-12.1)
[2020-08-02 23:22] LABS: Activated Partial Thrombo Time 27.9 Seconds (26.0-36.0)
[2020-08-02] MEDS: Nitroglycerin 0.4 MG TAB.SUBL SL SCH (23:38)
[2020-08-03 00:05] LABS: BUN/Creatinine Ratio 21 (6-26); Blood Urea Nitrogen 13 mg/dL (8-23); Calcium 9.6 mg/dL (8.6-10.3); Carbon Dioxide 27 mEq/L (23-29); Chloride 101 mEq/L (98-107); Glucose 130 mg/dL (70-105); Osmolality,Calculated 292 (280-300); Potassium 3.8 mEq/L (3.5-5.1); Sodium 140 mEq/L (136-145); Troponin I < 0.03 ng/mL (< 0.04); eGFR For African Americans > 60 (> 60); eGFR For Non-African Americans > 60 (> 60)
[2020-08-03] MEDS ORDERED: Isovue-370 500 ML BOTTLE IVP ONE (00:05)
[2020-08-03 01:33] LABS: Bilirubin,Urine Negative (Negative); Blood,Urine Negative (Negative); Clarity,Urine Clear (Clear); Color,Urine Colorless (Yellow); Glucose,Urine (UA) Normal (Normal); Ketones,Urine Negative (Negative); Leukocyte Esterase,Urine Negative (Negative); Nitrite,Urine Negative (Negative); PH,Urine 7.5 pH Units (5.0-8.0); Protein,Urine Negative (Neg-Trace); Specific Gravity,Urine 1.024 (1.010-1.025); Urobilinogen,Urine Normal (Normal)
[2020-08-03 01:33] LABS: Alanine Aminotransferase 20 Units/L (7-52); Albumin 4.4 g/dL (3.5-5.7); Albumin/Globulin Ratio 1.6 (1.1-2.2); Alkaline Phosphatase 61 Units/L (34-104); Aspartate Amino Transferase 24 Units/L (13-39); Bilirubin,Direct 0.1 mg/dL (0.0-0.2); Bilirubin,Indirect 0.4 mg/dL (0.0-1.0); Bilirubin,Total 0.5 mg/dL (0.3-1.0); Globulin 2.7 g/dL (2.4-3.5); Total Protein 7.1 g/dL (6.4-8.9)
[2020-08-03] MEDS ORDERED: Ondansetron 4 MG/2 ML VIAL IVP PRN (04:10)
[2020-08-03] MEDS ORDERED: Acetaminophen 325 MG TABLET PO PRN (04:10)
[2020-08-03] MEDS ORDERED: Naloxone 0.4 MG/ML INJ IVP PRN (04:10)
[2020-08-03] MEDS: rOPINIRole 1 MG TABLET PO SCH ×2 (04:54→21:21)
[2020-08-03] MEDS: QUEtiapine Fumarate 100 MG TABLET PO SCH ×2 (04:54→21:21)
[2020-08-03] MEDS: *HR* Heparin 5,000 UNIT/ML VIAL SQ SCH ×2 (05:19→18:11)
[2020-08-03 05:34] LABS: Basophils % 0.6 %; Eosinophils % 0.4 %; Hematocrit 42.6 % (35.3-44.9); Hemoglobin 14.3 g/dL (11.5-15.4); Immature Granulocytes % 0.2 % (0-4); Lymphocytes # 1.6 K/mcL (0.6-4.6); Lymphocytes % 30.1 %; Mean Corpuscular HGB Conc 33.6 g/dL (31.6-35.5); Mean Corpuscular Hemoglobin 32.2 pg (28.0-33.3); Mean Corpuscular Volume 95.9 fL (83.0-100.0); Mean Platelet Volume 11.7 fL (9.4-12.4); Monocytes # 0.6 K/mcL (0.0-1.3); Monocytes % 10.5 %; Neutrophils # 3.1 K/mcL (1.6-8.9); Platelet Count 224 K/mcL (140-400); Red Blood Count 4.44 M/mcL (3.82-4.97); Red Cell Distribution Width 13.6 % (11.5-14.5); Segmented Neutrophils % 58.2 %; White Blood Count 5.3 K/mcL (4.3-11.1)
[2020-08-03 05:53] LABS: BUN/Creatinine Ratio 22 (6-26); Blood Urea Nitrogen 11 mg/dL (8-23); Calcium 9.8 mg/dL (8.6-10.3); Carbon Dioxide 26 mEq/L (23-29); Chloride 101 mEq/L (98-107); Glucose 135 mg/dL (70-105); Osmolality,Calculated 289 (280-300); Potassium 3.5 mEq/L (3.5-5.1); Sodium 139 mEq/L (136-145); Troponin I < 0.03 ng/mL (< 0.04); eGFR For African Americans > 60 (> 60); eGFR For Non-African Americans > 60 (> 60)
[2020-08-03] MEDS: Nitroglycerin 0.4 MG TAB.SUBL SL SCH (07:41)
[2020-08-03] MEDS ORDERED: 0.9 % Sodium Chloride 1,000 ML ONE (08:07)
[2020-08-03] MEDS ORDERED: Regadenoson 0.4 MG/5 ML SYRINGE IVP ONE (08:24)
[2020-08-03] MEDS ORDERED: 0.9 % Sodium Chloride 1,000 ML IV ONE (08:39)
[2020-08-03] MEDS: 0.9 % Sodium Chloride 1,000 ML IVC SCH (13:30)
[2020-08-03] MEDS ORDERED: Perflutren Lipid Microsphere 1.3 ML in 0.9 % Sodium Chloride 8.7 ML IVP PRN (14:36)
[2020-08-03] MEDS ORDERED: tiZANidine 4 MG TABLET PO PRN (17:32)
[2020-08-03] MEDS: *HR* HYDROcodone/Acet 10/325 mg TABLET PO PRN (18:11)
[2020-08-03] MEDS ORDERED: clonazePAM 1 MG TABLET PO SCH (21:00)
[2020-08-04] MEDS: 0.9 % Sodium Chloride 1,000 ML IVC SCH ×2 (02:16→13:31)
[2020-08-04] MEDS: *HR* Heparin 5,000 UNIT/ML VIAL SQ SCH (05:00)
[2020-08-04] MEDS: *HR* HYDROcodone/Acet 10/325 mg TABLET PO PRN (05:03)
[2020-08-04 05:11] LABS: Basophils % 0.4 %; Eosinophils # 0.1 K/mcL (0.0-0.6); Eosinophils % 1.6 %; Hematocrit 38.5 % (35.3-44.9); Immature Granulocytes % 0.2 % (0-4); Lymphocytes # 2.4 K/mcL (0.6-4.6); Lymphocytes % 48.7 %; Mean Corpuscular HGB Conc 32.7 g/dL (31.6-35.5); Mean Corpuscular Volume 97.7 fL (83.0-100.0); Mean Platelet Volume 11.2 fL (9.4-12.4); Monocytes # 0.5 K/mcL (0.0-1.3); Monocytes % 9.4 %; Neutrophils # 1.9 K/mcL (1.6-8.9); Platelet Count 183 K/mcL (140-400); Red Blood Count 3.94 M/mcL (3.82-4.97); Red Cell Distribution Width 13.8 % (11.5-14.5); Segmented Neutrophils % 39.7 %; White Blood Count 4.9 K/mcL (4.3-11.1)
[2020-08-04 05:14] LABS: Hemoglobin 12.6 g/dL (11.5-15.4)
[2020-08-04 05:30] LABS: BUN/Creatinine Ratio 26 (6-26); Blood Urea Nitrogen 13 mg/dL (8-23); Calcium 9.1 mg/dL (8.6-10.3); Carbon Dioxide 26 mEq/L (23-29); Chloride 106 mEq/L (98-107); Glucose 97 mg/dL (70-105); Osmolality,Calculated 288 (280-300); Potassium 3.5 mEq/L (3.5-5.1); Sodium 139 mEq/L (136-145); eGFR For African Americans > 60 (> 60); eGFR For Non-African Americans > 60 (> 60)
[2020-08-04] MEDS ORDERED: Regadenoson 0.4 MG/5 ML SYRINGE IVP ONE (06:20)
[2020-08-04] MEDS ORDERED: Cholecalciferol (D-3) 1,000 UNIT (25MCG) TABLET PO SCH (09:00)
[2020-08-04] MEDS ORDERED: Cyanocobalamin (B-12) 1,000 MCG TABLET PO SCH (09:00)
[2020-08-04] MEDS ORDERED: amLODIPine 5 MG TABLET PO ONE (09:13)
[2020-08-04 11:42] VITALS: BP 105/60
== END 2020-08-04 15:38 | disposition home or self-care (01) ==
LOC: EMEROOARM 22:36 → 3BNU 22:36 → SUATTDRO 08-03 02:13 → 3BNU 08-03 02:25
PROVIDERS: ADMIT Family Medicine; ATTEND Family Medicine

== ENCOUNTER 2021-04-20 22:46 | Observation (INO) ==
[2021-04-21 00:49] LABS: Basophils % 0.6 %; Eosinophils # 0.2 K/mcL (0.0-0.6); Eosinophils % 4.8 %; Hematocrit 38.9 % (35.3-44.9); Hemoglobin 12.5 g/dL (11.5-15.4); Immature Granulocytes % 0.2 % (0-4); Lymphocytes # 2.1 K/mcL (0.6-4.6); Lymphocytes % 41.8 %; Mean Corpuscular HGB Conc 32.1 g/dL (31.6-35.5); Mean Corpuscular Hemoglobin 32.4 pg (28.0-33.3); Mean Corpuscular Volume 100.8 fL (83.0-100.0); Mean Platelet Volume 11.6 fL (9.4-12.4); Monocytes # 0.5 K/mcL (0.0-1.3); Neutrophils # 2.1 K/mcL (1.6-8.9); Platelet Count 163 K/mcL (140-400); Red Blood Count 3.86 M/mcL (3.82-4.97); Red Cell Distribution Width 12.5 % (11.5-14.5); Segmented Neutrophils % 42.6 %
[2021-04-21 01:11] LABS: BUN/Creatinine Ratio 16 (6-26); Blood Urea Nitrogen 11 mg/dL (8-23); Calcium 9.2 mg/dL (8.6-10.3); Carbon Dioxide 29 mEq/L (23-29); Chloride 107 mEq/L (98-107); Glucose 88 mg/dL (70-105); Osmolality,Calculated 293 (280-300); Potassium 3.8 mEq/L (3.5-5.1); Sodium 142 mEq/L (136-145); eGFR For African Americans > 60 (> 60); eGFR For Non-African Americans > 60 (> 60)
[2021-04-21 01:12] LABS: Troponin I < 0.03 ng/mL (< 0.04)
[2021-04-21] MEDS ORDERED: Nitroglycerin 0.4 MG TAB.SUBL SL PRN (03:16)
[2021-04-21] MEDS ORDERED: Perflutren Lipid Microsphere 1.3 ML in 0.9 % Sodium Chloride 8.7 ML IVP PRN (04:20)
[2021-04-21 04:46] LABS: Influenza A PCR Negative (Negative); Influenza B PCR Negative (Negative); Resp. Syncytial Virus PCR Negative (Negative); SARS-CoV-2 by PCR (In House) Negative (Negative)
[2021-04-21] MEDS ORDERED: 0.9 % Sodium Chloride 500 ML ONE (05:10)
[2021-04-21] MEDS ORDERED: 0.9 % Sodium Chloride 500 ML IVC ONE (05:14)
[2021-04-21] MEDS ORDERED: Ondansetron 4 MG/2 ML VIAL IVP PRN (05:25)
[2021-04-21] MEDS ORDERED: Naloxone 0.4 MG/ML INJ IVP PRN (05:25)
[2021-04-21] MEDS ORDERED: Regadenoson 0.4 MG/5 ML SYRINGE IVP ONE ×2 (05:57→09:33)
[2021-04-21] MEDS ORDERED: *HR* Enoxaparin 40 MG/0.4 ML SYRINGE SQ SCH (06:00)
[2021-04-21 08:10] LABS: Troponin I < 0.03 ng/mL (< 0.04)
[2021-04-21] MEDS ORDERED: Aspirin 81 MG TAB.CHEW PO SCH (09:00)
[2021-04-21 09:18] LABS: Chol/HDL Ratio 2.8 (0-4.9); Cholesterol 143 mg/dL (< 200); HDL Cholesterol 52 mg/dL (40-59); LDL Cholesterol,Calculated 78 mg/dL (< 100); Magnesium 1.8 mg/dL (1.6-2.6); Triglycerides 67 mg/dL (< 150)
[2021-04-21 10:24] LABS: Estimated Average Glucose 94 mg/dl; Hemoglobin A1C 4.9 %
[2021-04-21 15:19] VITALS: BP 135/71; PULSE 42; TEMP 98.3; O2SAT 96
== END 2021-04-21 17:57 | disposition home or self-care (01) ==
LOC: EMEROOARM 22:46 → 3BNU 22:46 → SUATTDRO 04-21 05:01 → 3BNU 04-21 06:18
PROVIDERS: ADMIT Family Medicine; ATTEND Internal Medicine